=== PATIENT | male | born 1935 | race Caucasian/White ===

== ENCOUNTER 2017-04-14 16:04 | Outpatient (CLI) ==
[2012-09-13 13:50] VITALS: TEMP 98.2
[2014-05-19 20:20] VITALS: BMI 21.6
== END 2017-04-14 16:05 | disposition home or self-care (01) ==
LOC: LAB 16:04
PROVIDERS: ATTEND Emergency Medicine
DX: Z51.81 Encounter for therapeutic drug level monitoring (principal); Z79.01 Long term (current) use of anticoagulants; E78.5 Hyperlipidemia, unspecified; I10 Essential (primary) hypertension
CPT/HCPCS: 36415; 80053; 85025; 85610

== ENCOUNTER 2017-04-22 12:50 | Outpatient (CLI) ==
[2012-09-13 13:50] VITALS: TEMP 98.2
[2014-05-19 20:20] VITALS: BMI 21.6
== END 2017-04-22 12:51 | disposition home or self-care (01) ==
LOC: LAB 12:50
PROVIDERS: ATTEND Emergency Medicine
DX: I48.2 Chronic atrial fibrillation (principal)
CPT/HCPCS: 36415; 85610

== ENCOUNTER 2017-04-30 16:43 | Inpatient (IN) ==
[2017-04-30] MEDS ORDERED: SOLU-MEDROL 125 MG IVP STA (17:07)
[2017-04-30] MEDS ORDERED: DUONEB NEB STA (17:08)
--- NOTE | 2017-04-30 17:41 | DI ---
EXAM: Single view chest COMPARISON: Chest Xray from 05/19/2014 HISTORY: Cough FINDINGS: There is some scarring and atelectasis in the left base which is a bit more apparent with increasing elevation of the left hemidiaphragm compared to prior. There is no lobar infiltrate or fa ilure or large effusion. Cardiac and mediastinal silhouettes show no acute abnormality. Pacemaker is unchanged. No acute soft tissue or osseous abnormalities. There is advanced degenerative change of t he right glenohumeral joint. IMPRESSION: Volume loss left base with no acute abnormality.
--- NOTE | 2017-04-30 18:17 | ED.PDOC ---
General ED Provider: Dr. PRADEEP MARCOS Chief Complaint: Shortness of Air Stated Complaint: shortness of breath Time Seen by Physician: 17:00 (NO RESP DISTRESS) Mode of Arrival: Wheelchair Information Source: Patient Exam Limitations: No limitations Primary Care Provider: BRYAN GARSIA Referred to ED by: Other Nursing and Triage Documentation Reviewed and Agree: Yes Reviewed sepsis parameters & appropriate labs ordered?: Yes (PMD SAW PT IN THE ED ) System Inflammatory Response Syndrome: Not Applicable Sepsis Protocol: For patient's 13 years and over: Temp is 96.8 and below OR 101 and greater Pulse >90 BPM Resp >20/minute Acutely Altered Mental Status Are patient's symptoms suggestive of a new infection, such as: -Pneumonia -Skin, Soft Tissue -Endocarditis -UTI -Bone, Joint Infection -Implantable Device -Acute Abdominal Infection -Wound Infection -Meningitis -Blood Stream Catheter Infection -Unknown System Inflammatory Response Syndrome: Not Applicable Respiratory Complaint Exam - Respiratory Complaint/Exam Onset/Duration: 2 DAYS Symptoms Are: Still present Timing: Constant Initial Severity: Moderate Current Severity: Moderate Location: Chest Character: Reports: Non-productive cough Aggravating: Reports: URI Alleviating: Reports: Bronchodilators, Spontaneous resolution Associated Signs and Symptoms: Reports: Wheezing, URI, Decreased oral intake. Denies: Rapid breathing, Dyspnea, Fever, Chills, Chest pain, Pleuritic chest pain, Hemoptysis, Dizziness, Calf pain, Calf swelling, Edema, Nasal congestion, Hoarseness, Sinus discomfort, Vomiting, Sore throat, Weight loss, Increased thirst, Increased appetite, Increased urination Related History: Reports: Similar episode History of Healthcare-Acquired Pneumonia: No Related Surgical History: Reports: None Pulmonary Embolism Risk Factors: None Pseudomonas Risk Factors: Reports: None Review of Systems - Review Of Systems Constitutional: Reports: Malaise, Weakness Eyes: Reports: No symptoms Ears, Nose, Mouth, Throat: Reports: No symptoms Respiratory: Reports: Cough, Short of air Cardiac: Reports: No symptoms GI: Reports: No symptoms : Reports: No symptoms Musculoskeletal: Reports: No symptoms Skin: Reports: No symptoms Neurological: Reports: No symptoms Endocrine: Reports: No symptoms Hematologic/Lymphatic: Reports: No symptoms All Other Systems: Reviewed and Negative Past Medical History - Past Medical History Previously Healthy: No Endocrine: Reports: Dyslipidemia Cardiovascular: Reports: Hypertension, A-Fib Respiratory: Reports: None Hematological: Reports: None Gastrointestinal: Reports: GERD Genitourinary: Reports: None Neuro/Psych: Reports: None Musculoskeletal: Reports: None Cancer: Reports: None - Surgical History General Surgical History: Reports: None - Family History Family History: Reports: None - Social History Smoking Status: Current some day smoker Hx Substance Use: No Alcohol Screening: None - Immunizations Tetanus Shot up to Date: Yes Physical Exam - Physical Exam Appearance: Ill-appearing Ill-appearing: Mild Pain Distress: Mild Eyes: DAVID, EOMI, Conjunctiva clear ENT: Dry mucosa Respiratory: Breath sounds diminished, Rhonchi, Wheezes Cardiovascular: RRR, Pulses normal, No rub, No murmur GI/: Soft, Nontender, No masses, Bowel sounds normal, No Organomegaly Musculoskeletal: Normal strength, ROM intact, No edema, No calf tenderness Skin: Warm, Dry, Normal color Neurological: Sensation intact, Motor intact, Reflexes intact, Cranial nerves intact, Alert, Oriented Psychiatric: Affect appropriate, Mood appropriate Physician Notification - Case Discussed Physician Notified: PMD Time of Notification: 17:30 Critical Care Note - Critical Care Note Total Time (mins): 0 Course - Course Hematology/Chemistry: 04/30/17 17:10 04/30/17 17:10 Orders, Labs, Meds: Lab Review 04/30/17 04/30/17 04/30/17 16:55 17:10 17:10 WBC 12.81 H RBC 3.58 L Hgb 9.9 L Hct 32.2 L MCV 89.9 MCH 27.7 MCHC 30.7 L RDW Coeff of Salomon 16.3 H Plt Count 224 Immature Gran % (Auto) 0.5 Neut % (Auto) 75.5 Lymph % (Auto) 11.2 [place] % (Auto) 9.4 Eos % (Auto) 3.1 Baso % (Auto) 0.3 Immature Gran # (Auto) 0.1 Neut # 9.7 H Lymph # 1.4 [place] # 1.2 Eos # 0.4 Baso # 0.0 Puncture Site Rb O2 Saturation 95.0 ABG pH 7.385 ABG pCO2 58.3 H ABG pO2 81.0 L ABG HCO3 34.9 H ABG Total CO2 37 H ABG Base Excess 10 H O2 Delivery Device Nc Oxygen Liter Flow 3.00 FiO2 % 32.0 Sodium 142 Potassium 4.4 Chloride 101 Carbon Dioxide 32 H Anion Gap 13.4 BUN 19 H Creatinine 1.00 Estimated GFR (MDRD) 72.00 BUN/Creatinine Ratio 19.00 Glucose 135 H Lactic Acid Calcium 9.0 Total Bilirubin < 0.3 AST 14 L ALT 17 Alkaline Phosphatase 86 Total Creatine Kinase 71 Troponin I 0.0210 B-Natriuretic Peptide Total Protein 7.0 Albumin 3.1 L Globulin 3.9 Albumin/Globulin Ratio 0.79 Procalcitonin Influenza A (Rapid) Influenza B (Rapid) 04/30/17 04/30/17 04/30/17 17:10 17:10 17:10 WBC RBC Hgb Hct MCV MCH MCHC RDW Coeff of Salomon Plt Count Immature Gran % (Auto) Neut % (Auto) Lymph % (Auto) [place] % (Auto) Eos % (Auto) Baso % (Auto) Immature Gran # (Auto) Neut # Lymph # [place] # Eos # Baso # Puncture Site O2 Saturation ABG pH ABG pCO2 ABG pO2 ABG HCO3 ABG Total CO2 ABG Base Excess O2 Delivery Device Oxygen Liter Flow FiO2 % Sodium Potassium Chloride Carbon Dioxide Anion Gap BUN Creatinine Estimated GFR (MDRD) BUN/Creatinine Ratio Glucose Lactic Acid 7.9 Calcium Total Bilirubin AST ALT Alkaline Phosphatase Total Creatine Kinase Troponin I B-Natriuretic Peptide 186 H Total Protein Albumin Globulin Albumin/Globulin Ratio Procalcitonin < 0.05 Influenza A (Rapid) Influenza B (Rapid) 04/30/17 17:10 WBC RBC Hgb Hct MCV MCH MCHC RDW Coeff of Salomon Plt Count Immature Gran % (Auto) Neut % (Auto) Lymph % (Auto) [place] % (Auto) Eos % (Auto) Baso % (Auto) Immature Gran # (Auto) Neut # Lymph # [place] # Eos # Baso # Puncture Site O2 Saturation ABG pH ABG pCO2 ABG pO2 ABG HCO3 ABG Total CO2 ABG Base Excess O2 Delivery Device Oxygen Liter Flow FiO2 % Sodium Potassium Chloride Carbon Dioxide Anion Gap BUN Creatinine Estimated GFR (MDRD) BUN/Creatinine Ratio Glucose Lactic Acid Calcium Total Bilirubin AST ALT Alkaline Phosphatase Total Creatine Kinase Troponin I B-Natriuretic Peptide Total Protein Albumin Globulin Albumin/Globulin Ratio Procalcitonin Influenza A (Rapid) Negative by naat Influenza B (Rapid) Negative by naat Orders Category Date Time Status ABG DRAW REQUEST Stat CARDIO 04/30/17 16:57 Completed EKG-(ED ONLY) Stat CARDIO 04/30/17 17:39 Completed NEBULIZER TREATMENT Stat CARDIO 04/30/17 17:08 Completed ABG Stat LAB 04/30/17 16:55 Completed ABG Stat LAB 04/30/17 16:57 Ordered BLOOD CULTURE Stat LAB 04/30/17 17:10 Received BNP [B-TYPE NATRIURETIC PEPTIDE] Stat LAB 04/30/17 17:10 Completed CBC W/ AUTO DIFF Stat LAB 04/30/17 17:10 Completed COMPREHENSIVE METABOLIC PANEL Stat LAB 04/30/17 17:10 Completed CREATINE KINASE Stat LAB 04/30/17 17:10 Completed FLU A/B MOLECULAR Stat LAB 04/30/17 17:10 Completed LACTIC ACID Stat LAB 04/30/17 17:10 Completed PROCALCITONIN Stat LAB 04/30/17 17:10 Completed TROPONIN I Stat LAB 04/30/17 17:10 Completed Ipratropium/Albuterol Neb [Duoneb] MEDS 04/30/17 17:08 Discontinued 1 vial NEB ONCE STA Methylprednisolone Sod Succ/Pf [Solu-Medrol 125 mg] MEDS 04/30/17 17:07 Discontinued 125 mg IVP ONCE STA CHEST, 1V AP ONLY Stat RADS 04/30/17 16:54 Completed Medications Discontinued Medications Generic Name Dose Route Start Last Admin Trade Name Freq PRN Reason Stop Dose Admin Albuterol/Ipratropium 1 vial 04/30/17 17:08 04/30/17 17:16 Duoneb NEB 04/30/17 17:09 1 vial ONCE STA Administration Methylprednisolone Sodium Succinate 125 mg 04/30/17 17:07 04/30/17 17:29 Solu-Medrol 125 Mg IVP 04/30/17 17:08 125 mg ONCE STA Administration Vital Signs: Temp Pulse Resp BP Pulse Ox 04/30/17 16:44 99.3 F 75 24 124/69 91 L Departure - Departure Time of Disposition: 18:16 Disposition: ADMITTED INPATIENT Discharge Problem: Shortness of breath Instructions: Dyspnea (ED), Shortness of Breath (ED) Condition: Good Pt referred to PMD for follow-up: Yes IPMP verified?: Yes Allergies/Adverse Reactions: Allergies No Known Allergies Allergy (Verified 04/30/17 17:20) Home Medications: Ambulatory Orders Omeprazole [Prilosec] 20 mg PO DAILY 09/13/12 Pravastatin Sodium 10 mg PO DAILY 09/13/12 Spironolactone [Aldactone] 25 mg PO DAILY 09/13/12 Carbidopa/Levodopa [Carbidopa-Levo 25-100 mg Odt] 25 mg PO TID 03/28/14 Cholecalciferol (Vitamin D3) [Vitamin D3] 1,000 unit PO DAILY 03/28/14 Docusate Sodium 100 mg PO BID 03/28/14 Tamsulosin HCl [Flomax] 0.4 mg PO DAILY 03/28/14 Albuterol Sulfate [Proventil Hfa] 6.7 gm IH QID 04/07/17 Furosemide 20 mg PO d 04/07/17 Hydroxyzine HCl 10 mg PO TID 04/07/17 Lisinopril 10 mg PO 1/2 tab daily 04/07/17 Metoprolol Tartrate 50 mg PO 1/2 tab BID 04/07/17 Propafenone HCl 225 mg PO BID 04/07/17 Ropinirole HCl 0.5 mg PO BEDTIME 04/07/17 Warfarin Sodium 2 mg PO SAt. Antonietta KILLIAN. 04/07/17 Warfarin Sodium 4 mg PO Mon, Wed and Wed04/07/17 Naproxen Sodium [Aleve] 220 mg PO PRN PRN 04/30/17 Disposition Discussed With: Patient, Family
[2017-04-30] MEDS ORDERED: ZITHROMAX PO SCH (19:00)
[2017-04-30 19:47] VITALS: BMI 19.8
[2017-04-30] MEDS: SODIUM CHLORIDE 1,000 ML IV SCH (20:18)
[2017-04-30] MEDS: ROCEPHIN 1 GM in SODIUM CHLORIDE 50 ML IV SCH (20:24)
[2017-04-30] MEDS: SOLU-MEDROL 125 MG IVP SCH (20:25)
[2017-04-30] MEDS: ZITHROMAX PO SCH (20:29)
[2017-04-30] MEDS: DUONEB NEB SCH (20:33)
[2017-04-30] MEDS ORDERED: NAPROXEN SODIUM 220 MG PO PRN (21:57)
[2017-04-30] MEDS ORDERED: ZESTRIL PO SCH (22:00)
[2017-04-30] MEDS ORDERED: HYDROXYZINE HCL PO SCH (22:00)
[2017-04-30] MEDS ORDERED: LOPRESSOR PO SCH (22:00)
[2017-04-30] MEDS ORDERED: WARFARIN SODIUM 4 MG PO SCH (22:00)
[2017-04-30] MEDS ORDERED: TYLENOL PO PRN (22:05)
[2017-05-01] MEDS: DUONEB NEB SCH ×4 (04:50→21:48)
[2017-05-01] MEDS ORDERED: PROPAFENONE HCL 225 MG PO SCH (05:00)
[2017-05-01] MEDS: SOLU-MEDROL 125 MG IVP SCH ×3 (05:34→20:59)
[2017-05-01] MEDS ORDERED: NAPROSYN PO PRN (07:21)
[2017-05-01] MEDS: PROAIR HFA IH SCH ×4 (08:46→20:40)
[2017-05-01] MEDS: RYTHMOL PO SCH ×3 (08:46→20:41)
[2017-05-01] MEDS: COLACE PO SCH ×2 (08:47→20:40)
[2017-05-01] MEDS: FLOMAX PO SCH (08:47)
[2017-05-01] MEDS: PRILOSEC PO SCH (08:47)
[2017-05-01] MEDS: ZESTRIL PO SCH (08:47)
[2017-05-01] MEDS: ALDACTONE PO SCH (08:48)
[2017-05-01] MEDS: VITAMIN D PO SCH (08:48)
[2017-05-01] MEDS: SINEMET 25-100 PO SCH ×4 (08:48→20:40)
[2017-05-01] MEDS: LOPRESSOR PO SCH ×2 (08:48→20:40)
[2017-05-01] MEDS: LASIX TAB PO SCH (08:48)
[2017-05-01] MEDS: ATARAX PO SCH ×4 (08:48→20:40)
[2017-05-01] MEDS ORDERED: PRAVASTATIN SODIUM 10 MG PO SCH (09:00)
[2017-05-01] MEDS ORDERED: NON-FORMULARY MEDICATION (Omeprazole [Prilosec] 20 MG) PO SCH (09:00)
[2017-05-01] MEDS ORDERED: CARBIDOPA PO SCH (09:00)
[2017-05-01] MEDS ORDERED: LEVODOPA PO SCH (09:00)
[2017-05-01] MEDS: PRAVACHOL PO SCH (16:45)
[2017-05-01] MEDS: COUMADIN PO SCH (16:46)
[2017-05-01] MEDS: ROCEPHIN 1 GM in SODIUM CHLORIDE 50 ML IV SCH (20:39)
[2017-05-01] MEDS: ZITHROMAX PO SCH (20:43)
[2017-05-01] MEDS: REQUIP PO SCH (20:43)
[2017-05-01] MEDS ORDERED: ROPINIROLE HCL PO SCH (21:00)
[2017-05-01] MEDS: SODIUM CHLORIDE 1,000 ML IV SCH (21:54)
[2017-05-02] MEDS: DUONEB NEB SCH ×4 (04:48→19:56)
[2017-05-02] MEDS: RYTHMOL PO SCH ×3 (05:51→20:29)
[2017-05-02] MEDS: SOLU-MEDROL 125 MG IVP SCH ×3 (05:51→20:27)
[2017-05-02] MEDS: LASIX TAB PO SCH (05:52)
[2017-05-02] MEDS: PRILOSEC PO SCH (05:52)
[2017-05-02] MEDS: PROAIR HFA IH SCH ×4 (09:41→20:27)
[2017-05-02] MEDS: ATARAX PO SCH ×4 (09:42→20:31)
[2017-05-02] MEDS: COLACE PO SCH ×2 (09:42→20:30)
[2017-05-02] MEDS: LOPRESSOR PO SCH ×2 (09:43→20:30)
[2017-05-02] MEDS: ALDACTONE PO SCH (09:43)
[2017-05-02] MEDS: ZESTRIL PO SCH (09:43)
[2017-05-02] MEDS: VITAMIN D PO SCH (09:43)
[2017-05-02] MEDS: SINEMET 25-100 PO SCH ×3 (09:43→20:30)
[2017-05-02] MEDS: FLOMAX PO SCH (09:43)
[2017-05-02] MEDS: PRAVACHOL PO SCH (17:11)
[2017-05-02] MEDS: COUMADIN PO SCH (17:14)
[2017-05-02] MEDS: ROCEPHIN 1 GM in SODIUM CHLORIDE 50 ML IV SCH (20:27)
[2017-05-02] MEDS: REQUIP PO SCH (20:28)
[2017-05-02] MEDS: ATIVAN IVP SCH (20:30)
[2017-05-02] MEDS: ZITHROMAX PO SCH (20:30)
[2017-05-03] MEDS: SODIUM CHLORIDE 1,000 ML IV SCH (02:39)
[2017-05-03] MEDS: DUONEB NEB SCH ×4 (05:06→20:45)
[2017-05-03] MEDS: SOLU-MEDROL 125 MG IVP SCH ×3 (05:30→20:43)
[2017-05-03] MEDS: RYTHMOL PO SCH ×3 (05:30→20:39)
[2017-05-03] MEDS: PRILOSEC PO SCH (05:30)
[2017-05-03] MEDS: LASIX TAB PO SCH (05:30)
[2017-05-03] MEDS: PROAIR HFA IH SCH ×4 (08:37→20:38)
[2017-05-03] MEDS: COLACE PO SCH ×2 (08:38→20:38)
[2017-05-03] MEDS: LOPRESSOR PO SCH ×2 (08:38→20:40)
[2017-05-03] MEDS: ALDACTONE PO SCH (08:38)
[2017-05-03] MEDS: FLOMAX PO SCH (08:38)
[2017-05-03] MEDS: VITAMIN D PO SCH (08:38)
[2017-05-03] MEDS: ZESTRIL PO SCH (08:39)
[2017-05-03] MEDS: SINEMET 25-100 PO SCH ×3 (08:39→20:38)
[2017-05-03] MEDS: ATARAX PO SCH ×4 (08:40→20:38)
--- NOTE | 2017-05-03 11:44 | HP ---
DATE OF SERVICE: 04/30/17 CHIEF COMPLAINT: Shortness of breath. HISTORY OF PRESENT ILLNESS: This is an 81-year-old male with multiple medical problems, CHF, atrial fibrillation, COPD - oxygen dependent, [place] and pneumonia. He was doing fine at home, started having worsening cough and congestion for 3 to 4 days, getting more short of breath. He was already using 2L of nasal cannula which was not helping. He came to the emergency room and was seen by Dr. Ortega in the emergency room. Initial saturation was 91 on 4L, 83% on room air. ABGs showed pH 7.385, pc02 58, p02 81. White count 12.8 with left shift. BNP 186. Chest x-ray was showing normal. At that time, the patient is admitted to the hospital with COPD exacerbation secondary to bronchitis and acute on chronic heart failure. REVIEW OF SYSTEMS: CONSTITUTIONAL: Weakness, tiredness. No fever, no chills. HEENT: Normal. ENDOCRINE: No weight gain; no weight loss. CVS: No chest pain. No PND, no orthopnea. Shortness of breath. No PND, no orthopnea. RESPIRATORY: Cough and congestion. No hemoptysis. GI: No nausea, no vomiting. No abdominal pain. No melena. : No hematuria. No polyuria. MUSCULOSKELETAL: Mild leg edema. No joint swelling. PSYCHIATRIC: Not anxious. No depression. No suicidal thoughts. No homicidal thoughts. SKIN: Intact, no open lesions. PAST MEDICAL HISTORY: CAD 2011 CHF AICD placed 2011 COPD, oxygen dependent Sleep apnea - uses BIPAP GERD Constipation BPH Chronic kidney disease Rheumatoid arthritis Osteoarthritis Depression/anxiety Atrial fibrillation PAST SURGICAL HISTORY: Exploratory surgery for stomach cancer approximately 1993 AICD placement Bilateral cataract surgery PERSONAL HISTORY: Started smoking again. Lives at home with a friend. No alcohol use. No drug use. FAMILY HISTORY: Significant for heart problems. MEDICATIONS: (HOME) Prilosec Pravastatin Aldactone Carbidopa Flomax Docusate Vitamin D3 Hydroxyzine Metoprolol Proventil Propafenone Coumadin Lasix Lisinopril Ropinirole Naproxen ALLERGIES: NKDA PHYSICAL EXAMINATION: V/S: BP 146/66, respiratory rate 22, heart rate 77, temperature 97.9, saturation 100% on 3L. GENERAL: Ill-appearing male, lying in bed. HEENT: Atraumatic, normocephalic. No scleral icterus. Pallor positive. Mucosa dry. NECK: Supple. No JVD, no bruit. No lymphadenopathy. No thyromegaly. HEART: S1, S2 normal. Systolic murmur positive. No cyanosis or clubbing. No ascites. LUNGS: Decreased entry. Basilar crackles. Mild expiratory wheezing. No rales or rhonchi. ABDOMEN: Soft, nontender. Bowel sounds are active. No CVA tenderness. No rigidity or guarding. EXTREMITIES: Trace edema. No cyanosis or clubbing MUSCULOSKELETAL: Normal joints, no swelling. NEUROLOGIC: Normal. SKIN: Intact; no open lesions. LYMPHATIC: No lymph nodes palpable. LABS: White count 12.81, hemoglobin 9.9, hematocrit 72.2, platelet count 224. PT/INR 1.37. ABGs pH 7.385, pc02 58.3, p02 81, p02 81. Bicarb 34.9, sodium 142, potassium 4.4, chloride 101, bicarb 33, BUN 19, creatinine 1.0, glucose 135. BNP 186. ASSESSMENT: 1. ACUTE ON CHRONIC HEART FAILURE 2. COPD EXACERBATION SECONDARY TO BRONCHITIS 3. CHF 4. AICD PLACEMENT 5. COPD 6. SLEEP APNEA 7. OSTEOARTHRITIS 8. DJD SPINE PLAN: 1. Admit the patient to the regular floor 2. CBC today and daily 3. Cardiac enzymes and troponin 4. Continue home medication 5. IV fluids 6. Duonebs 7. Azithromycin 8. Rocephin 9. Solu-Medrol 60 q.8hr 10. Daily I & O's TIME SPENT: MORE THAN 75 minutes MTDD
--- NOTE | 2017-05-03 12:40 | PN ---
DATE OF SERVICE: 05/01/17 SUBJECTIVE: The patient's breathing is somewhat better, was able to get up and walk to the bathroom. Saturation getting better. REVIEW OF SYSTEMS: CONSTITUTIONAL: No fever, no chills. HEENT: Normal. ENDOCRINE: No weight gain, no weight loss. CVS: No angina symptoms. No CHF symptoms. No palpitations. No atypical chest pain for CAD. No shortness of breath. No PND, no orthopnea. RESPIRATORY: No cough, no hemoptysis. GI: No nausea, no vomiting. No abdominal pain. : No hematuria. No polyuria. MUSCULOSKELETAL: No joint swelling. PSYCHIATRIC: Not anxious. No depression. No suicidal thoughts. No homicidal thoughts. SKIN: Intact. No rash. PHYSICAL EXAMINATION: V/S: BP 115/63, respiratory rate 20, heart rate 70, temperature 98.0, saturation 100% on 2L. HEENT: Normocephalic, atraumatic. Mucosa dry. NECK: Supple. No JVD, no carotid bruit. No lymphadenopathy. LUNGS: Decreased basilar crackles. No rales or rhonchi. HEART: S1, S2 normal. No S3. No murmur, gallop or regurgitation. ABDOMEN: Soft, nontender. Bowel sounds active. No rigidity. No rebound or guarding. No CVA tenderness. EXTREMITIES: 1+ edema. No clubbing or cyanosis MUSCULOSKELETAL: No joint swelling. NEUROLOGIC: Normal. No focal deficit. LYMPHATIC: No lymph nodes palpable. SKIN: Intact. LABS: Sodium 140, potassium 4.0, chloride 104, bicarb 31, BUN 24, creatinine 0.83, glucose 178. White count 6.82, hemoglobin 8.7, hematocrit 28.2, platelet count 186. ASSESSMENT: 1. COPD EXACERBATION SECONDARY TO BRONCHITIS 2. ACUTE ON CHRONIC HEART FAILURE 3. CAD 4. CHF 5. BYPASS SURGERY 6. AICD PLACEMENT 7. SLEEP APNEA 8. COPD, OXYGEN DEPENDENT 9. DEPENDENT EDEMA PLAN: 1. Continue Rocephin and Azithromycin 2. Duonebs 3. Solu-Medrol 60 q.8hr 4. Daily I & O's TIME SPENT: More than 35 minutes MTDD
--- NOTE | 2017-05-03 14:46 | CT ---
EXAM: CT of the chest without contrast History: Short of breath Comparison: Chest radiograph 04/30/2017, chest CT 05/24/2014 Technique: Multiplanar CT images through the thorax were obtained without the administration of IV c ontrast Findings: Heart size is upper limits of normal. Coronary calcifications. No pericardial effusion. No pathologically enlarged thoracic lymph nodes. Calcified granulomas again seen within the thorax. Great vessels are unremarkable. Emphysema again noted. No pleural fluid and no pneumothorax. The right lower lobe infiltrate has mostly resolved with minimal residual. There is mucous plugging see n within the right mainstem bronchus tracking into the right lower lobe bronchi. No suspicious lung masses or lung nodules. Within the visualized upper abdomen, status post cholecystectomy. No acute osseous abnormalities. Impression: 1. The right lower lobe infiltrate has mostly resolved with minimal residual. 2. Mucous plugging within the right mainstem bronchus tracking into the right lower lobe bronchi. 3. Emphysema. 4. Coronary artery disease
[2017-05-03] MEDS ORDERED: COUMADIN PO ONE (17:00)
[2017-05-03] MEDS ORDERED: COUMADIN PO SCH (17:00)
[2017-05-03] MEDS: PRAVACHOL PO SCH (17:36)
[2017-05-03] MEDS: ROCEPHIN 1 GM in SODIUM CHLORIDE 50 ML IV SCH (20:36)
[2017-05-03] MEDS: REQUIP PO SCH (20:40)
[2017-05-03] MEDS: ATIVAN IVP SCH (20:43)
[2017-05-04] MEDS: DUONEB NEB SCH ×3 (05:05→14:18)
[2017-05-04] MEDS: RYTHMOL PO SCH ×2 (05:51→12:44)
[2017-05-04] MEDS: PRILOSEC PO SCH (05:52)
[2017-05-04] MEDS: SOLU-MEDROL 125 MG IVP SCH ×2 (05:52→12:53)
[2017-05-04] MEDS: LASIX TAB PO SCH (05:52)
[2017-05-04] MEDS: PROAIR HFA IH SCH ×2 (08:54→12:42)
[2017-05-04] MEDS: FLOMAX PO SCH (08:54)
[2017-05-04] MEDS: ZESTRIL PO SCH (08:55)
[2017-05-04] MEDS: ALDACTONE PO SCH (08:55)
[2017-05-04] MEDS: COLACE PO SCH (08:55)
[2017-05-04] MEDS: LOPRESSOR PO SCH (08:55)
[2017-05-04] MEDS: SINEMET 25-100 PO SCH (08:55)
[2017-05-04] MEDS: VITAMIN D PO SCH (08:55)
[2017-05-04] MEDS: ATARAX PO SCH ×2 (08:56→12:43)
[2017-05-04] MEDS ORDERED: LEXAPRO PO SCH (09:00)
[2017-05-04] MEDS ORDERED: NORCO 5-325 PO STA (09:01)
[2017-05-04 10:04] VITALS: BP 139/74; TEMP 98.2
[2017-05-04] MEDS ORDERED: COUMADIN PO STA (12:10)
--- NOTE | 2017-05-17 07:07 | PN ---
DATE OF SERVICE: 05/02/17 SUBJECTIVE: The patient is admitted with COPD exacerbation, acute on chronic heart failure, slight leg edema. Breathing is better, still having cough and difficult sleeping. No fever, no chills. No PND, no orthopnea. REVIEW OF SYSTEMS: CONSTITUTIONAL: No fever, no chills. HEENT: Normal. ENDOCRINE: No weight gain, no weight loss. CVS: No angina symptoms. No CHF symptoms. No palpitations. No atypical chest pain for CAD. No shortness of breath. No PND, no orthopnea. RESPIRATORY: Cough. No hemoptysis. GI: No nausea, no vomiting. No abdominal pain. : No hematuria. No polyuria. MUSCULOSKELETAL: No joint swelling. PSYCHIATRIC: Not anxious. No depression. No suicidal thoughts. No homicidal thoughts. SKIN: Intact. No rash. PHYSICAL EXAMINATION: V/S: BP 127/67, respiratory rate 14, heart rate 69, temperature 97.6. Saturation 100% 2L. HEENT: Normocephalic, atraumatic. Mucosa dry. Pallor positive. No icterus. NECK: Supple. No JVD, no carotid bruit. No lymphadenopathy. LUNGS: Decreased with fine crackles. Clear to auscultation. No rales or rhonchi. HEART: S1, S2 normal. No S3. No murmur, gallop or regurgitation. ABDOMEN: Soft, nontender. Bowel sounds active. No rigidity. No rebound or guarding. No CVA tenderness. EXTREMITIES: 1+ edema. No clubbing or cyanosis MUSCULOSKELETAL: No joint swelling. NEUROLOGIC: Awake, alert, oriented times three. No focal deficit. LYMPHATIC: No lymph nodes palpable. SKIN: Intact. LABS: White count 18.56, hemoglobin 9.0, hematocrit 27.9, platelet count 218. Sodium 135, potassium 4.5, chloride 102, bicarb 26, BUN 24, creatinine 0.84, glucose 193. ASSESSMENT: 1. COPD EXACERBATION SECONDARY TO BRONCHITIS 2. ACUTE ON CHRONIC HEART FAILURE 3. CHRONIC ANEMIA 4. ATRIAL FIBRILLATION ON GROUP HOME ANTICOAGULATION WITH COUMADIN 5. COPD, OXYGEN DEPENDENT 6. SLEEP APNEA, USES CPAP 7. OSTEOARTHRITIS 8. DJD SPINE PLAN: 1. Continue breathing treatments 2. Rocephin 1 gm daily 3. Lasix 20 mg p.o. daily 4. Solu-Medrol 60 mg q.8hr 5. Requip 6. Coumadin 7. Continue to monitor PT/INR TIME SPENT: More than 35 minutes MTDD
--- NOTE | 2017-05-17 10:05 | PN ---
DATE OF SERVICE: 05/03/17 SUBJECTIVE: The patient says that with the given dose of Ativan last night, he was able to sleep good and using the CPAP helped the patient alot. Ambulated a little going to the bathroom but gets seriously short of breath. REVIEW OF SYSTEMS: CONSTITUTIONAL: No fever, no chills. HEENT: Normal. ENDOCRINE: No weight gain, no weight loss. CVS: No angina symptoms. No CHF symptoms. No palpitations. No atypical chest pain for CAD. Shortness of breath on exertion. No PND, no orthopnea. RESPIRATORY: No cough, no hemoptysis. GI: No nausea, no vomiting. No abdominal pain. : No hematuria. No polyuria. MUSCULOSKELETAL: No joint swelling. PSYCHIATRIC: Not anxious. No depression. No suicidal thoughts. No homicidal thoughts. SKIN: Intact. No rash. PHYSICAL EXAMINATION: V/S: BP 127/66, respiratory rate 24, heart rate 85, temperature 97.7, saturation 85 on 2L, which ranges from 85 to 92 on 2L. HEENT: Normocephalic, atraumatic. Mucosa dry. NECK: Supple. No JVD, no carotid bruit. No lymphadenopathy. LUNGS: Clear to auscultation. No rales or rhonchi. HEART: S1, S2 normal. No S3. No murmur, gallop or regurgitation. ABDOMEN: Soft, nontender. Bowel sounds active. No rigidity. No rebound or guarding. No CVA tenderness. EXTREMITIES: 1+ edema. No clubbing or cyanosis MUSCULOSKELETAL: No joint swelling. NEUROLOGIC: Awake, alert, oriented times three. No focal deficit. LYMPHATIC: No lymph nodes palpable. SKIN: Intact. LABS: Sodium 135, potassium 4.5, chloride 102, bicarb 26, BUN 24, creatinine 0.84. White count 18.56, hemoglobin 9.0, hematocrit 27.9, platelet count 218. ASSESSMENT: 1. COPD EXACERBATION SECONDARY TO BRONCHITIS 2. ACUTE ON CHRONIC HEART FAILURE 3. ANEMIA 4. COPD, OXYGEN DEPENDENT 5. ATRIAL FIBRILLATION ON LONG TERM ANTICOAGULATION PLAN: 1. Continue Rocephin 2. Breathing treatement 3. Coumadin - will continue to monitor PT/INR 4. Will give dose of 5 mg Coumadin today 5. Will get CT chest 6. Anemia profile 7. Stop IV fluids. TIME SPENT: More than 35 minutes MTDD
--- NOTE | 2017-05-19 15:00 | DS ---
DATE OF SERVICE: 05/04/17 FINAL DIAGNOSIS: 1. COPD exacerbation secondary to the bronchitis 2. Acute on chronic heart failure 3. Atrial fibrillation on Coumadin 4. COPD oxygen dependant 5. Coronary artery disease 6. Congestive heart failure 7. CVA 8. AICD placement 9. Sleep apnea on CPAP 10.BPH 11.Rheumatoid arthritis 12.Tonsillectomy 13.History of stomach cancer 14.Continued nicotine use. 15.Depression DISCHARGE INSTRUCTIONS: Discharge the patient home. Continue home medication and Nebulizer.Continue new medications. MEDICATIONS AT DISCHARGE: Propafenone Albuterol PRN Carbidopa/Levopa Vitamin D 3 Docusate Lasix Hydrocodone Hydroxyzin Lisinopril Metoprolol Prilosec Pravastatin Prednisone Requip Aldactone Flomax Coumadin 2mg and 4mg NEW PRESCRIPTIONS: Lexapro 10mg Po daily [employer] 5mg PO twice a day Keflex 500mg twice a day Prednisone 10mg twice a day DIET INSTRUCTIONS: Heart healthy ACTIVITY: Resume as tolerated SMOKING: Current some day smoker. DISEASE SPECIFIC EDUCATION: correction anticoagulation Risk of intracranial bleed and GI bleed been discussed Risk of Pneumonia and need for pneumonia vaccination been discussed and verbalized understanding. COPD HOSPITAL COURSE: Natan Ackerman 81 [facility] male, [facility] care with me, came to the emergency room with worsening of the cough, congestion and shortness of breath. As per the patient's daughter he started smoking again. Evaluated in the ER. WBC was 12,000 with the left shift, hgb 9.9, ABG showed the pH 7.385, pCO2 58.3 and pO2 81. Chest x-ray was negative, BNP was elevated 186 with mild leg edema with 1+ to the ankles. Admitted to the hospital and started on the IV antibiotics, breathing treatments and steroids. The patient's Coumadin was continued in the hospital. PT/INR being monitored. Started on the DUO NEBS. The patient says that they were helping better than the Albuterol. Rocephin 1 gram was given, Solu-Medrol 125mg and Azithromycin 500mg. With the given treatment the patient was up and about. Solu-Medrol 60mg Q 8 hours was given. The patient was complaining some depression and so Lexapro 10mg was started, did not have any problems. Hydrocodone 5mg was started and did not have any problems. Sugars were slightly high Most of them were below 200 and covered with the coverage. Assumed to be more from the steroids. CT of the chest was done which showed the right lower lobe infiltrate mostly resolved with minimal residual mucosa plugging within the right main bronchus, emphysema and coronary artery disease. As the patient was clinically improved and less short of breath and more active the patient being discharged home. TIME SPENT: MORE THAN 65 MINUTES MTDD
== END 2017-05-04 14:58 | disposition home or self-care (01) | DRG 190 ==
LOC: ED 16:43 → MEDSURG A 18:14
PROVIDERS: ADMIT Emergency Medicine; ATTEND Emergency Medicine
DX: J44.1 Chronic obstructive pulmonary disease with (acute) exacerbation (principal); I63.9 Cerebral infarction, unspecified; R53.1 Weakness; J44.0 Chronic obstructive pulmonary disease with (acute) lower respiratory infection; R05 Cough; E78.5 Hyperlipidemia, unspecified; I10 Essential (primary) hypertension; I48.91 Unspecified atrial fibrillation; K21.9 Gastro-esophageal reflux disease without esophagitis; Z72.0 Tobacco use; J20.9 Acute bronchitis, unspecified; I50.9 Heart failure, unspecified; Z79.01 Long term (current) use of anticoagulants; Z99.81 Dependence on supplemental oxygen; I25.10 Atherosclerotic heart disease of native coronary artery without angina pectoris; G47.30 Sleep apnea, unspecified; N40.0 Benign prostatic hyperplasia without lower urinary tract symptoms; M06.9 Rheumatoid arthritis, unspecified; Z85.028 Personal history of other malignant neoplasm of stomach; F32.9 Major depressive disorder, single episode, unspecified
CPT/HCPCS: 36415; 80053; 82550; 82607; 82728; 82746; 82803; 83540; 83550; 83605; 83880; 84145; 84466; 84484; 85025; 85045; 85610; 87040; 87502; 93005; 93010; 94640; 96374; 96375; 99284

== ENCOUNTER 2017-05-14 15:21 | Inpatient (IN) ==
[2017-05-14] MEDS ORDERED: TYLENOL PO PRN (15:40)
[2017-05-14] MEDS ORDERED: WARFARIN SODIUM 4 MG PO SCH (15:45)
[2017-05-14] MEDS ORDERED: LOPRESSOR PO SCH (16:00)
[2017-05-14] MEDS ORDERED: COUMADIN PO SCH ×2 (16:06→17:00)
[2017-05-14 16:17] VITALS: BMI 18.6
[2017-05-14] MEDS: DUONEB NEB SCH ×2 (16:56→23:43)
--- NOTE | 2017-05-14 17:02 | DI ---
EXAM: Chest two view, frontal and lateral views. HISTORY: Shortness of breath. COMPARISON: 05/03/2017. FINDINGS: Left-sided automatic implantable cardiac defibrillator noted. The heart size is normal. There is no pulmonary vascular congestion. Suspect mild right posterobasal lower lobe consolidation. Otherwise, the lungs are clear save for stable left basilar scarring. No pleural effusion or pneum othorax is seen. No acute osseous abnormality identified. Clips seen in the upper abdomen. Since prior study, there has been no significant interval change. IMPRESSION: Right lower lobe atelectasis or pneumonia.
[2017-05-14] MEDS: SOLU-MEDROL 125 MG IVP SCH ×2 (17:11→21:13)
[2017-05-14] MEDS: SODIUM CHLORIDE 1,000 ML IV SCH (17:11)
[2017-05-14] MEDS: ROCEPHIN 1 GM in SODIUM CHLORIDE 50 ML IV SCH (17:11)
[2017-05-14] MEDS: ATARAX PO SCH (17:15)
[2017-05-14] MEDS: LOPRESSOR PO SCH (17:19)
[2017-05-14] MEDS ORDERED: ATARAX PO SCH (21:00)
[2017-05-14] MEDS ORDERED: ROPINIROLE HCL PO SCH (21:00)
[2017-05-14] MEDS ORDERED: PROPAFENONE HCL 225 MG PO SCH (21:00)
[2017-05-14] MEDS ORDERED: LEVODOPA PO SCH (21:00)
[2017-05-14] MEDS ORDERED: NON-FORMULARY MEDICATION (Hydroxyzine Hcl [Hydroxyzine Hcl] 10 MG) PO SCH (21:00)
[2017-05-14] MEDS ORDERED: CARBIDOPA PO SCH (21:00)
[2017-05-14] MEDS: SINEMET 25-100 PO SCH (21:08)
[2017-05-14] MEDS: RYTHMOL PO SCH (21:09)
[2017-05-14] MEDS: COLACE PO SCH (21:09)
[2017-05-14] MEDS: REQUIP PO SCH (21:09)
[2017-05-15] MEDS: DUONEB NEB SCH ×4 (05:09→23:13)
[2017-05-15] MEDS: PRILOSEC PO SCH (05:33)
[2017-05-15] MEDS: LASIX TAB PO SCH (05:33)
[2017-05-15] MEDS: RYTHMOL PO SCH ×3 (05:34→21:13)
[2017-05-15] MEDS: ROCEPHIN 1 GM in SODIUM CHLORIDE 50 ML IV SCH (08:41)
[2017-05-15] MEDS: ALDACTONE PO SCH (08:43)
[2017-05-15] MEDS: ATARAX PO SCH ×4 (08:45→21:15)
[2017-05-15] MEDS: COLACE PO SCH ×2 (08:46→21:15)
[2017-05-15] MEDS: FLOMAX PO SCH (08:46)
[2017-05-15] MEDS: SOLU-MEDROL 125 MG IVP SCH ×2 (08:46→21:15)
[2017-05-15] MEDS: PRAVACHOL PO SCH (08:47)
[2017-05-15] MEDS: LEXAPRO PO SCH (08:47)
[2017-05-15] MEDS: LOPRESSOR PO SCH ×2 (08:47→16:48)
[2017-05-15] MEDS: ZESTRIL PO SCH (08:49)
[2017-05-15] MEDS: SINEMET 25-100 PO SCH ×3 (08:49→21:14)
[2017-05-15] MEDS: VITAMIN D PO SCH (08:49)
[2017-05-15] MEDS ORDERED: NON-FORMULARY MEDICATION (Omeprazole [Prilosec] 20 MG) PO SCH (09:00)
[2017-05-15] MEDS ORDERED: PRAVASTATIN SODIUM 10 MG PO SCH (09:00)
[2017-05-15] MEDS: COUMADIN PO SCH (16:47)
[2017-05-15] MEDS: REQUIP PO SCH (21:13)
[2017-05-15] MEDS: SODIUM CHLORIDE 1,000 ML IV SCH (21:18)
[2017-05-16] MEDS: NORCO 5-325 PO PRN ×2 (00:05→13:24)
[2017-05-16] MEDS: DUONEB NEB SCH ×4 (05:03→23:00)
[2017-05-16] MEDS: LASIX TAB PO SCH (05:43)
[2017-05-16] MEDS: RYTHMOL PO SCH ×3 (05:43→20:00)
[2017-05-16] MEDS: PRILOSEC PO SCH (05:43)
[2017-05-16] MEDS ORDERED: COUMADIN PO STA (07:58)
[2017-05-16] MEDS: NEO-POLYCIN OPTH OINT OP SCH ×5 (08:50→20:00)
[2017-05-16] MEDS: COLACE PO SCH ×2 (08:51→20:01)
[2017-05-16] MEDS: ATARAX PO SCH ×4 (08:51→20:00)
[2017-05-16] MEDS: FLOMAX PO SCH (08:52)
[2017-05-16] MEDS: ALDACTONE PO SCH (08:52)
[2017-05-16] MEDS: VITAMIN D PO SCH (08:52)
[2017-05-16] MEDS: LEXAPRO PO SCH (08:52)
[2017-05-16] MEDS: LOPRESSOR PO SCH ×2 (08:52→17:15)
[2017-05-16] MEDS: SINEMET 25-100 PO SCH ×3 (08:53→20:01)
[2017-05-16] MEDS: SOLU-MEDROL 125 MG IVP SCH ×2 (08:53→19:59)
[2017-05-16] MEDS: ZESTRIL PO SCH (08:53)
[2017-05-16] MEDS: ROCEPHIN 1 GM in SODIUM CHLORIDE 50 ML IV SCH (08:53)
[2017-05-16] MEDS: PRAVACHOL PO SCH (09:35)
[2017-05-16] MEDS: COUMADIN PO SCH (17:15)
[2017-05-16] MEDS: SODIUM CHLORIDE 1,000 ML IV SCH (19:55)
[2017-05-16] MEDS: REQUIP PO SCH (20:00)
[2017-05-17] MEDS: NEO-POLYCIN OPTH OINT OP SCH ×3 (04:15→08:39)
[2017-05-17] MEDS: DUONEB NEB SCH ×2 (05:13→11:12)
[2017-05-17] MEDS: NORCO 5-325 PO PRN (05:18)
[2017-05-17 05:52] VITALS: BP 136/80; TEMP 98.1
[2017-05-17] MEDS: LASIX TAB PO SCH (05:55)
[2017-05-17] MEDS: RYTHMOL PO SCH (05:55)
[2017-05-17] MEDS: PRILOSEC PO SCH (05:55)
[2017-05-17] MEDS: ALDACTONE PO SCH (08:36)
[2017-05-17] MEDS: ATARAX PO SCH (08:37)
[2017-05-17] MEDS: LEXAPRO PO SCH (08:38)
[2017-05-17] MEDS: COLACE PO SCH (08:38)
[2017-05-17] MEDS: FLOMAX PO SCH (08:38)
[2017-05-17] MEDS: LOPRESSOR PO SCH (08:39)
[2017-05-17] MEDS: PRAVACHOL PO SCH (08:40)
[2017-05-17] MEDS: VITAMIN D PO SCH (08:41)
[2017-05-17] MEDS: ZESTRIL PO SCH (08:41)
[2017-05-17] MEDS: ROCEPHIN 1 GM in SODIUM CHLORIDE 50 ML IV SCH (08:41)
[2017-05-17] MEDS: SINEMET 25-100 PO SCH (08:41)
[2017-05-17] MEDS: SOLU-MEDROL 125 MG IVP SCH (10:13)
--- NOTE | 2017-05-17 11:45 | PN ---
DATE OF SERVICE: 05/15/17 SUBJECTIVE: Cough and congestion is some better but still getting shortness of breath with minimal exertion. Admitted with COPD exacerbation. The patient uses the oxygen at home. REVIEW OF SYSTEMS: CONSTITUTIONAL: No fever, no chills. HEENT: Normal. ENDOCRINE: No weight gain, no weight loss. CVS: No angina symptoms. No CHF symptoms. No palpitations. No atypical chest pain for CAD. Still shortness of breath with minimal exertion. No PND, no orthopnea. RESPIRATORY: No cough, no hemoptysis. GI: No nausea, no vomiting. No abdominal pain. : No hematuria. No polyuria. MUSCULOSKELETAL: No joint swelling. PSYCHIATRIC: Not anxious. No depression. No suicidal thoughts. No homicidal thoughts. SKIN: Intact. No rash. PHYSICAL EXAMINATION: V/S: Blood pressure 113/61, respiratory rate 18, heart rate 75, temperature 98.0 and saturation 92 on 2 liters. HEENT: Normocephalic, atraumatic. Mucosa dry. Pallor positive. No icterus. NECK: Supple. No JVD, no carotid bruit. No lymphadenopathy. LUNGS: Basilar crackles. No Wheezing. Clear to auscultation. No rales or rhonchi. HEART: S1, S2 normal. No S3. No murmur, gallop or regurgitation. ABDOMEN: Soft, nontender. Bowel sounds active. No rigidity. No rebound or guarding. No CVA tenderness. EXTREMITIES: No pedal edema. No clubbing or cyanosis MUSCULOSKELETAL: No joint swelling. NEUROLOGIC: Awake, alert, oriented times three. No focal deficit. LYMPHATIC: No lymph nodes palpable. SKIN: Intact. LABS: WBC 7.10, hgb 9.7, hct 30.8, plt count 159, sodium 136, potassium 5.2, chloride 96, bicarb 32, BUN 26, creatinine 0.92 and glucose 184. ASSESSMENT: 1. COPD exacerbation secondary to the bronchitis 2. History of CHF 3. COPD oxygen dependent 4. Atrial fibrillation on [employer] anticoagulation 5. Parkinson's disease 6. Permanent pacemaker 7. Sleep apnea on CPAP PLAN: 1. Continue the Rocephin, Solu-Medrol and DUO NEBS 2. Continue Coumadin will adjust the dose as per PT/INR TIME SPENT: More than 35 minutes MTDD
--- NOTE | 2017-05-17 12:58 | PN ---
DATE OF SERVICE: 05/16/17 SUBJECTIVE: Coughing and congestion is better but still gets short of breath with minimal exertion. Going to the bathroom and coming back makes him short of breath. Left eye been irritated and it is red now. He was not able to sleep because he said his restless legs started yesterday night and he was not able to sleep. REVIEW OF SYSTEMS: CONSTITUTIONAL: No fever, no chills. HEENT: Normal. ENDOCRINE: No weight gain, no weight loss. CVS: No angina symptoms. No CHF symptoms. No palpitations. No atypical chest pain for CAD. No shortness of breath. No PND, no orthopnea. RESPIRATORY: No cough, no hemoptysis. GI: No nausea, no vomiting. No abdominal pain. : No hematuria. No polyuria. MUSCULOSKELETAL: No joint swelling. PSYCHIATRIC: Not anxious. No depression. No suicidal thoughts. No homicidal thoughts. SKIN: Intact. No rash. PHYSICAL EXAMINATION: V/S: Blood pressure 112/66, respiratory rate 15, heart rate 66 and temperature 97.6 with saturation 92. HEENT: Normocephalic, atraumatic. Mucosa dry. Pallor positive. no icterus. NECK: Supple. No JVD, no carotid bruit. No lymphadenopathy. LUNGS: Decreased and clear to auscultation. No rales or rhonchi. HEART: S1, S2 normal. No S3. No murmur, gallop or regurgitation. ABDOMEN: Soft, nontender. Bowel sounds active. No rigidity. No rebound or guarding. No CVA tenderness. EXTREMITIES: No pedal edema. No clubbing or cyanosis MUSCULOSKELETAL: No joint swelling. NEUROLOGIC: Awake, alert, oriented times three. No focal deficit. LYMPHATIC: No lymph nodes palpable. SKIN: Intact. LABS: WBC 16,000, hgb 8.9, hct 27.8, plt count 171,sodium 132, potassium 5.0, chloride 96, bicarb 30, BUN 39 and creatinine 1.0 and glucose 225. ASSESSMENT: 1. COPD Exacerbation secondary to the bronchitis 2. History of COPD oxygen dependant 3. CHF 4. Coronary artery disease 5. Status post permanent pacemaker and ACD 6. Atrial fibrillation on snf anticoagulation 7. Parkinson's disease 8. Restless leg syndrome 9. 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 Left eye conjunctivitis PLAN: 1. Continue the Solu-Medrol 80mg Q 12 hours 2. Rocephin 1 gram daily 3. PT/INR 4. Continue the same dose of Coumadin TIME SPENT: More than 35 minutes MTDD
--- NOTE | 2017-05-25 13:47 | DS ---
DATE OF SERVICE: 05/17/17 FINAL DIAGNOSIS: 1. COPD exacerbation secondary to the upper respiratory infection and bronchitis 2. Chronic hypoxemic respiratory failure on oxygen 3. Coronary artery disease 4. Congestive heart failure 5. AICD 6. Atrial fibrillation on anticoagulation 7. Restless leg syndrome 8. Sleep apnea on CPAP 9. Anemia 10.Cachexia 11.CAD in 2012 12.History of appendectomy 13.BPH DISCHARGE INSTRUCTIONS: Discharge the patient home. Continue the rest of the home medication. MEDICATIONS AT DISCHARGE: Prilosec Pravastatin Sodium Aldactone Carbidopa-Levo Flomax Docusate sodium Vitamin D3 Hydroxyzine Metoprolol tartrate Proventil Propafenone Warfarin Warfarin Furosemide Lisinopril Ropinirole Lexapro [place] Hydroxyzine NEW PRESCRIPTIONS: Keflex 500mg twice a day for 5 days Prednisone 10mg twice a day 10 days DIET INSTRUCTIONS: Cardiac and healthy ACTIVITY: As much as tolerated SMOKING: Current everyday smoker DISEASE SPECIFIC EDUCATION: COPD Pneumonia and need for the pneumonia vaccination been discussed and verbalized understanding. HOSPITAL COURSE: Natan Ackerman who is a 81 year old gentleman with multiple medical problems came to the office with the worsening of the cough and congestion. As per the daughter the patient started smoking again like 3-4 cigarettes per day. No fever or chills. Admitted directly from the office to the hospital. Hypoxemic on the 2 liters nasal cannula. Started on the Rocephin, steroids and breathing treatments. BNP was within normal limits. CT chest did not show any acute findings. ABG showed the pH 7.391, pCo2 61, pO2 72. With the given treatment and antibiotics the patient was feeling better and did not have any complications. Up and about walking, less short of breath. Did not like that the hospital was cold and that kind of stuff otherwise the patient PT/INR was subtherapeutic so extra dose of Coumadin was given. FPC anticoagulation and intracranial bleed and GI bleed discussed and verbalized understanding. TIME SPENT: MORE THAN 65 MINUTES MTDD
== END 2017-05-17 11:55 | disposition home or self-care (01) | DRG 191 ==
LOC: MEDSURG A 15:21
PROVIDERS: ADMIT Emergency Medicine; ATTEND Emergency Medicine
DX: J44.1 Chronic obstructive pulmonary disease with (acute) exacerbation (principal); J96.11 Chronic respiratory failure with hypoxia; R64 Cachexia; J20.9 Acute bronchitis, unspecified; J44.0 Chronic obstructive pulmonary disease with (acute) lower respiratory infection; Z99.81 Dependence on supplemental oxygen; Z72.0 Tobacco use; I50.9 Heart failure, unspecified; Z95.810 Presence of automatic (implantable) cardiac defibrillator; I48.91 Unspecified atrial fibrillation; Z79.01 Long term (current) use of anticoagulants; G25.81 Restless legs syndrome; G47.30 Sleep apnea, unspecified; D64.9 Anemia, unspecified; I25.10 Atherosclerotic heart disease of native coronary artery without angina pectoris; N40.0 Benign prostatic hyperplasia without lower urinary tract symptoms
CPT/HCPCS: 36415; 80053; 82550; 82803; 83880; 84484; 85025; 85610; 87081; 93005; 93010; 94640

== ENCOUNTER 2017-05-24 19:00 | Inpatient (IN) ==
[2017-05-24] MEDS ORDERED: DUONEB NEB STA (19:16)
[2017-05-24] MEDS ORDERED: SOLU-MEDROL 125 MG IVP STA ×2 (19:16→20:40)
--- NOTE | 2017-05-24 19:20 | ED.PDOC ---
General ED Provider: Dr. RIGOBERTO OBANDO Chief Complaint: Shortness of Air Stated Complaint: Patient states that he began to feel short of air after lunch. He states that he spoke with his PCP and was told to take an Albuterol treatment, and called back when it didn't improve and was instructed to take a second one. He states that he has had a productive cough of "brown stuff and blood" Time Seen by Physician: 19:15 Mode of Arrival: Walk-In Information Source: Patient Exam Limitations: No limitations [facility] and T[facility] Documentation Reviewed and Agree: Yes Reviewed sepsis parameters & appropriate labs ordered?: Yes System Inflammatory Response Syndrome: Resp >20/Minute Sepsis Protocol: For patient's 13 years and over: Temp is 96.8 and below OR 101 and greater Pulse >90 BPM Resp >20/minute Acutely Altered Mental Status Are patient's symptoms suggestive of a new infection, such as: -Pneumonia -Skin, Soft Tissue -Endocarditis -UTI -Bone, Joint Infection -Implantable Device -Acute Abdominal Infection -Wound Infection -Meningitis -Blood Stream Catheter Infection -Unknown Respiratory Complaint Exam - Shortness of Air Complaint/Exam Onset/Duration: 1 day Symptoms Are: Still present Timing: Constant Initial Severity: Moderate Current Severity: Severe Character: Reports: Dyspnea at rest Aggravating: Reports: URI, Weather Alleviating: Reports: Bronchodilators, Oxygen Associated Signs and Symptoms: Reports: Cough, Wheezing, Rapid breathing, Labored breathing Related History: Reports: Similar episode History of Healthcare-Acquired Pneumonia: No Pulmonary Embolism Risk Factors: Reports: Smoking. Denies: OCs/Estrogen, , Malignancy, Recent travel, Bedrest, Recent surgery, Recent trauma, Previous PE Cardiac Risk Factors: Reports: Prior VT, Smoking Pseudomonas Risk Factors: Reports: Chronic Lung Disease Tuberculosis Risk Factors: Reports: Corticosteriod use Home Oxygen Use: No Recent Stress Test: No Recent Echo/LV Function: No Respiratory Distress: Moderate Stridor Present: No Tracheal Deviation: No Subcutaneous Emphysema: No Accessory Muscle Use: Yes Retractions: Supraclavicular Diminished Breath Sounds: Yes Prolonged Expiratory Phase: No Unable to Speak Full Sentences: Yes Fatigue: No Leg Swelling: No Perico's Sign Present: No Grunting Respirations: No Kussmaul Respirations: No Differential Diagnoses: COPD Exacerbation, Pneumonia, Pulmonary Embolism Quality Indicator For Non-Traumatic Chest Pain/Syncope: EKG Performed Quality Indicators For Pneumonia/CAP: Blood Cultures-SCU admit, Antibiotics in 6hr-admit, SpO2 assessed, Empiric Antibiotic Rx, Vital signs, Mental status assessed Related Surgical History: Reports: Pacemaker Review of Systems - Review Of Systems Constitutional: Reports: No symptoms Eyes: Reports: No symptoms Ears, Nose, Mouth, Throat: Reports: No symptoms Respiratory: Reports: Cough, Short of air, Wheezing Cardiac: Reports: No symptoms GI: Reports: No symptoms : Reports: No symptoms Musculoskeletal: Reports: No symptoms Skin: Reports: No symptoms Neurological: Reports: No symptoms Endocrine: Reports: No symptoms Hematologic/Lymphatic: Reports: No symptoms All Other Systems: Reviewed and Negative Past Medical History - Past Medical History Previously Healthy: No Endocrine: Reports: Dyslipidemia Cardiovascular: Reports: Hypertension, CHF, A-Fib Respiratory: Reports: COPD Hematological: Reports: None Gastrointestinal: Reports: GERD Genitourinary: Reports: None Neuro/Psych: Reports: None Musculoskeletal: Reports: None Cancer: Reports: None Other Pertinent Past Medical History: Sleep Apnea - Surgical History General Surgical History: Reports: Appendectomy, Pacemaker (ICD), Other ( EXP LAP) - Family History Family History: Reports: Unknown - Social History Smoking Status: Current some day smoker Hx Substance Use: No Alcohol Screening: None - Immunizations Tetanus Shot up to Date: No Physical Exam - Physical Exam Appearance: Ill-appearing, Thin Ill-appearing: Moderate Eyes: DAVID, EOMI, Conjunctiva clear Neck: Supple Respiratory: Breath sounds diminished, Rhonchi, Wheezes Cardiovascular: RRR, Pulses normal, No rub, No murmur GI/: Soft, Nontender, No masses, Bowel sounds normal, No Organomegaly Musculoskeletal: Normal strength, ROM intact, No edema, No calf tenderness Skin: Warm, Dry, Normal color Neurological: Alert, Oriented Psychiatric: Anxious Interpretation - Radiology Interpretation Radiology Interpretation By: Radiologist Radiology Results: No acute changes Exam Interpreted: Portable CXR (Pacemaker ICD in place on the left upper chest ) - EKG Interpretation Time of EKG #1: 19:32 Rhythm: Other (Electronic Ventricular Paced.) Critical Care Note - Critical Care Note Total Time (mins): 35 Course - Course Hematology/Chemistry: 05/24/17 19:30 05/24/17 19:30 Orders, Labs, Meds: Lab Review 05/24/17 05/24/1718 19:15 19:16 19:30 WBC 8.10 RBC 3.33 L Hgb 9.3 L Hct 29.6 L MCV 88.9 MCH 27.9 MCHC 31.4 L RDW Coeff of Salomon 16.5 H Plt Count 194 Immature Gran % (Auto) 0.5 Neut % (Auto) 60.3 Lymph % (Auto) 17.7 [place] % (Auto) 15.6 H Eos % (Auto) 5.7 Baso % (Auto) 0.2 Immature Gran # (Auto) 0.0 Neut # 4.9 Lymph # 1.4 [place] # 1.3 Eos # 0.5 Baso # 0.0 Puncture Site Rr O2 Saturation 95.0 ABG pH 7.512 H* ABG pCO2 42.0 ABG pO2 69.0 L ABG HCO3 33.7 H ABG Total CO2 35 H ABG Base Excess 11 H Bryson Test + O2 Delivery Device Nc Oxygen Liter Flow 2.00 FiO2 % 28.0 Sodium Potassium Chloride Carbon Dioxide Anion Gap BUN Creatinine Estimated GFR (MDRD) BUN/Creatinine Ratio Glucose Lactic Acid Calcium Total Bilirubin AST ALT Alkaline Phosphatase Total Protein Albumin Globulin Albumin/Globulin Ratio Procalcitonin Influenza A (Rapid) Negative by naat Influenza B (Rapid) Negative by naat 05/24/17 05/24/17 05/24/17 19:30 19:30 19:30 WBC RBC Hgb Hct MCV MCH MCHC RDW Coeff of Salomon Plt Count Immature Gran % (Auto) Neut % (Auto) Lymph % (Auto) [place] % (Auto) Eos % (Auto) Baso % (Auto) Immature Gran # (Auto) Neut # Lymph # [place] # Eos # Baso # Puncture Site O2 Saturation ABG pH ABG pCO2 ABG pO2 ABG HCO3 ABG Total CO2 ABG Base Excess Bryson Test O2 Delivery Device Oxygen Liter Flow FiO2 % Sodium 140 Potassium 4.6 Chloride 99 Carbon Dioxide 33 H Anion Gap 12.6 BUN 28 H Creatinine 1.16 H Estimated GFR (MDRD) 60.00 BUN/Creatinine Ratio 24.13 Glucose 155 H Lactic Acid 9.2 Calcium 9.0 Total Bilirubin 0.3 AST 11 L ALT 6 L Alkaline Phosphatase 68 Total Protein 6.3 Albumin 2.9 L Globulin 3.4 Albumin/Globulin Ratio 0.85 Procalcitonin < 0.05 Influenza A (Rapid) Influenza B (Rapid) Orders Category Date Time Status ADMIT PATIENT INPATIENT .TO SCU (MONITORED BED) ADMISSION 05/24/17 20:36 Completed ABG DRAW REQUEST Stat CARDIO 05/24/17 19:16 Completed EKG-(ED ONLY) Stat CARDIO 05/24/17 19:15 Completed NEBULIZER TREATMENT Stat CARDIO 05/24/17 19:16 Completed TELEMETRY MONITORING TELE CARE 05/24/17 20:37 Active ED IV/MEDIPORT/POWERPORT .ONCE EMERGENCY 05/24/17 19:16 Active ABG Stat LAB 05/24/17 19:16 Completed BLOOD CULTURE (ED ONLY) Stat LAB 05/24/17 19:30 Received CBC W/ AUTO DIFF Stat LAB 05/24/17 19:30 Completed COMPREHENSIVE METABOLIC PANEL Stat LAB 05/24/17 19:30 Completed FLU A/B MOLECULAR Stat LAB 05/24/17 19:15 Completed LACTIC ACID Stat LAB 05/24/17 19:30 Completed PROCALCITONIN Stat LAB 05/24/17 19:30 Completed 0.9 % Sodium Chloride [Saline Flush] MEDS 05/24/17 19:16 Ordered 1 syr IVF PRN PRN Aspirin [Aspirin EC] MEDS 05/25/17 09:00 Ordered 81 mg PO DAILY Carbidopa/Levodopa [Carbidopa-Levo 25-100 mg Odt] MEDS 05/24/17 21:00 Ordered 25 mg PO TID Ceftriaxone Sodium [Rocephin] 1 gm MEDS 05/24/17 20:39 Discontinued 0.9 % Sodium Chloride [Sodium Chloride] 50 ml IV ONCE Cholecalciferol (Vitamin D3) [Vitamin D] MEDS 05/25/17 09:00 Ordered 1,000 unit PO DAILY Docusate Sodium [Colace] MEDS 05/24/17 21:00 Ordered 100 mg PO BID Enoxaparin Sodium [Lovenox] MEDS 05/24/17 20:39 Discontinued 40 mg SUBCUT ONCE STA Escitalopram Oxalate [Lexapro] MEDS 05/25/17 09:00 Ordered 10 mg PO DAILY Finasteride [Proscar] MEDS 05/25/17 09:00 Ordered 5 mg PO DAILY Furosemide [Lasix Tab] MEDS 05/24/17 21:00 Ordered 20 mg PO d Hydrocodone Bit/Acetaminophen [[place] 5-325] MEDS 05/24/17 20:36 Ordered 1 tab PO BID PRN Hydroxyzine HCl [Hydroxyzine HCl] MEDS 05/24/17 21:00 Ordered 10 mg PO TID Ipratropium/Albuterol Neb [Duoneb] MEDS 05/24/17 19:16 Discontinued 1 vial NEB ONCE STA Lisinopril [Zestril] MEDS 05/24/17 21:00 Ordered 10 mg PO 1/2 tab daily Methylprednisolone Sod Succ/Pf [Solu-Medrol 125 mg] MEDS 05/24/17 19:16 Discontinued 125 mg IVP ONCE STA Methylprednisolone Sod Succ/Pf [Solu-Medrol 125 mg] MEDS 05/24/17 20:40 Discontinued 125 mg IVP ONCE STA Metoprolol Tartrate [Lopressor] MEDS 05/24/17 21:00 Ordered 50 mg PO 1/2 tab BID Omeprazole [Prilosec] MEDS 05/25/17 09:00 Ordered 20 mg PO DAILY Pravastatin Sodium [Pravastatin Sodium] MEDS 05/25/17 09:00 Ordered 20 mg PO DAILY Propafenone HCl [Propafenone HCl] MEDS 05/24/17 21:00 Ordered 225 mg PO Q8HR Ropinirole HCl [Ropinirole HCl] MEDS 05/24/17 21:00 Ordered 0.75 mg PO BEDTIME Spironolactone [Aldactone] MEDS 05/25/17 09:00 Ordered 25 mg PO DAILY Tamsulosin HCl [Flomax] MEDS 05/25/17 09:00 Ordered 0.4 mg PO DAILY Theophylline Anhydrous [Theophylline] MEDS 05/25/17 09:00 Ordered 400 mg PO DAILY CHEST, 1V AP ONLY Stat RADS 05/24/17 19:16 Completed Medications Generic Name Dose Route Start Last Admin Trade Name Freq PRN Reason Stop Dose Admin Acetaminophen/Hydrocodone Bitart 1 tab 05/24/17 20:36 05/24/17 22:52 [place] 5-325 PO 1 tab BID PRN Administration Severe Pain Albuterol/Ipratropium 1 vial 05/25/17 00:00 Duoneb NEB RTQ6H DARLIN Aspirin 81 mg 05/25/17 09:00 Aspirin Ec PO DAILY DARLIN Cholecalciferol 1,000 unit 05/25/17 09:00 Vitamin D PO DAILY [facility] Docusate Sodium 100 mg 05/24/17 21:00 05/24/17 22:52 Colace PO 100 mg BID DARLIN Administration Escitalopram Oxalate 10 mg 05/25/17 09:00 Lexapro PO DAILY [facility] Finasteride 5 mg 05/25/17 09:00 Proscar PO DAILY [facility] Furosemide 20 mg 05/24/17 21:00 Lasix Tab PO d [facility] Ceftriaxone Sodium 1 gm/ 50 mls @ 75 mls/hr 05/25/17 09:00 Sodium Chloride IV DAILY [facility] Lisinopril 10 mg 05/24/17 21:00 Zestril PO 1/2 tab daily [facility] Methylprednisolone Sodium Succinate 80 mg 05/25/17 05:00 Solu-Medrol 125 Mg IVP Q8HR [facility] Metoprolol Tartrate 50 mg 05/24/17 21:00 Lopressor PO 1/2 tab BID [facility] Non-Formulary Medication 25 mg 05/24/17 21:00 05/24/17 22:53 Carbidopa/Levodopa [Carbidopa-Levo 25-100 Mg Odt] PO Not Given TID DARLIN Non-Formulary Medication 10 mg 05/24/17 21:00 05/24/17 23:08 Hydroxyzine Hcl [Hydroxyzine Hcl] PO Not Given TID [facility] Non-Formulary Medication 20 mg 05/25/17 09:00 Omeprazole [Prilosec] PO DAILY [facility] Non-Formulary Medication 20 mg 05/25/17 09:00 Pravastatin Sodium [Pravastatin Sodium] PO DAILY [facility] Non-Formulary Medication 225 mg 05/24/17 21:00 05/24/17 23:08 Propafenone Hcl [Propafenone Hcl] PO Not Given Q8HR [facility] Non-Formulary Medication 0.75 mg 05/24/17 21:00 05/24/17 23:08 Ropinirole Hcl [Ropinirole Hcl] PO Not Given BEDTIME [facility] Non-Formulary Medication 400 mg 05/25/17 09:00 Theophylline Anhydrous [Theophylline] PO DAILY [facility] Sodium Chloride 1 syr 05/24/17 19:16 05/24/17 22:53 Saline Flush IVF 1 syr PRN PRN Administration To flush IV Spironolactone 25 mg 05/25/17 09:00 Aldactone PO DAILY [facility] Tamsulosin HCl 0.4 mg 05/25/17 09:00 Flomax PO DAILY [facility] Discontinued Medications Generic Name Dose Route Start Last Admin Trade Name Mahendra PRN Reason Stop Dose Admin Albuterol/Ipratropium 1 vial 05/24/17 19:16 05/24/17 19:41 Duoneb NEB 05/24/17 19:17 1 vial ONCE STA Administration Enoxaparin Sodium 40 mg 05/24/17 20:39 05/24/17 22:53 Lovenox SUBCUT 05/24/17 20:40 40 mg ONCE STA Administration Ceftriaxone Sodium 1 gm/ 50 mls @ 75 mls/hr 05/24/17 20:39 05/24/17 22:53 Sodium Chloride IV 05/24/17 21:18 75 mls/hr ONCE STA Administration Methylprednisolone Sodium Succinate 125 mg 05/24/17 19:16 05/24/17 19:42 Solu-Medrol 125 Mg IVP 05/24/17 19:17 125 mg ONCE STA Administration Methylprednisolone Sodium Succinate 125 mg 05/24/17 20:40 05/24/17 22:43 Solu-Medrol 125 Mg IVP 05/24/17 20:41 Not Given ONCE STA Vital Signs: Temp Pulse Resp BP Pulse Ox 05/24/17 19:01 99.8 F H 89 32 H 116/66 95 Departure - Departure Time of Disposition: 21:00 Disposition: ADMITTED INPATIENT Discharge Problem: COPD exacerbation Condition: Fair Pt referred to PMD for follow-up: Yes IPMP verified?: No Allergies/Adverse Reactions: Allergies No Known Allergies Allergy (Verified 05/24/17 19:08) Home Medications: Ambulatory Orders Omeprazole [Prilosec] 20 mg PO DAILY 09/13/12 Pravastatin Sodium 20 mg PO DAILY 09/13/12 Spironolactone [Aldactone] 25 mg PO DAILY 09/13/12 Carbidopa/Levodopa [Carbidopa-Levo 25-100 mg Odt] 25 mg PO TID 03/28/14 Cholecalciferol (Vitamin D3) [Vitamin D3] 1,000 unit PO DAILY 03/28/14 Docusate Sodium 100 mg PO BID 03/28/14 Tamsulosin HCl [Flomax] 0.4 mg PO DAILY 03/28/14 Albuterol Sulfate [Proventil Hfa] 6.7 gm IH QID 04/07/17 Furosemide 20 mg PO d 04/07/17 Hydroxyzine HCl 10 mg PO TID 04/07/17 Lisinopril 10 mg PO 1/2 tab daily 04/07/17 Metoprolol Tartrate 50 mg PO 1/2 tab BID 04/07/17 Propafenone HCl 225 mg PO Q8HR 04/07/17 Ropinirole HCl 0.75 mg PO BEDTIME 04/07/17 Escitalopram Oxalate [Lexapro] 10 mg PO DAILY #30 tablet 05/04/17 Hydrocodone Bit/Acetaminophen [[place] 5-325] 1 tab PO BID PRN #30 tablet Cephalexin [Keflex] 500 mg PO BID #10 capsule 05/17/17 Neomycin/Polymyxin B/Dexametha [[place]-Sghel-Radbxmyh Eye Drop] 5 ml OP QID #1 drops.susp 05/17/17 Prednisone 10 mg PO BIDWM #10 tablet 05/17/17 Aspirin [Lo-Dose Aspirin EC] 81 mg PO DAILY 05/24/17 Finasteride 5 mg PO DAILY 05/24/17 Theophylline Anhydrous [Theophylline] 400 mg PO DAILY 05/24/17
--- NOTE | 2017-05-24 20:30 | DI ---
EXAM: Single-view chest HISTORY: Shortness of breath COMPARISON: Single-view chest 05/14/2017 FINDINGS: The cardiomediastinal silhouette is stable. There is a stable left-sided automatic implan table cardiac defibrillator device.. There are moderate emphysematous changes.. There is no evidenc e of infiltrate or effusion. IMPRESSION: There is sinus change without evidence of active pulmonary disease. Stable automatic implantable cardiac defibrillator device
[2017-05-24] MEDS ORDERED: LOVENOX SUBCUT STA (20:39)
[2017-05-24] MEDS ORDERED: ROCEPHIN 1 GM in SODIUM CHLORIDE 50 ML IV STA (20:39)
[2017-05-24] MEDS ORDERED: NON-FORMULARY MEDICATION (Hydroxyzine Hcl [Hydroxyzine Hcl] 10 MG) PO SCH (21:00)
[2017-05-24] MEDS ORDERED: LEVODOPA PO SCH (21:00)
[2017-05-24] MEDS ORDERED: ROPINIROLE HCL PO SCH (21:00)
[2017-05-24] MEDS ORDERED: LASIX TAB PO SCH (21:00)
[2017-05-24] MEDS ORDERED: CARBIDOPA PO SCH (21:00)
[2017-05-24] MEDS ORDERED: ROCEPHIN ONE (22:47)
[2017-05-24] MEDS ORDERED: SINEMET 25-100 ONE (22:48)
[2017-05-24] MEDS: NORCO 5-325 PO PRN (22:52)
[2017-05-24] MEDS: COLACE PO SCH (22:52)
[2017-05-24] MEDS: PROPAFENONE HCL 225 MG PO SCH (23:08)
[2017-05-25] MEDS: DUONEB NEB SCH ×5 (00:55→23:09)
[2017-05-25] MEDS: SOLU-MEDROL 125 MG IVP SCH ×3 (05:34→20:38)
[2017-05-25] MEDS: LASIX TAB PO SCH (05:34)
[2017-05-25] MEDS: PROPAFENONE HCL 225 MG PO SCH (05:36)
[2017-05-25] MEDS ORDERED: THEOPHYLLINE ANHYDROUS 400 MG PO SCH (09:00)
[2017-05-25] MEDS ORDERED: NON-FORMULARY MEDICATION (Omeprazole [Prilosec] 20 MG) PO SCH (09:00)
[2017-05-25] MEDS ORDERED: PRAVASTATIN SODIUM 20 MG PO SCH (09:00)
[2017-05-25] MEDS: ALDACTONE PO SCH (09:24)
[2017-05-25] MEDS: ATARAX PO SCH ×3 (09:25→20:40)
[2017-05-25] MEDS: FLOMAX PO SCH (09:27)
[2017-05-25] MEDS: COLACE PO SCH ×2 (09:27→20:40)
[2017-05-25] MEDS: LOPRESSOR PO SCH ×2 (09:28→18:08)
[2017-05-25] MEDS: LEXAPRO PO SCH (09:28)
[2017-05-25] MEDS: RYTHMOL PO SCH ×3 (09:29→20:40)
[2017-05-25] MEDS: PRAVACHOL PO SCH (09:29)
[2017-05-25] MEDS: PROSCAR PO SCH (09:29)
[2017-05-25] MEDS: PRILOSEC PO SCH (09:29)
[2017-05-25] MEDS: SINEMET 25-100 PO SCH ×3 (09:31→20:40)
[2017-05-25] MEDS: VITAMIN D PO SCH (09:31)
[2017-05-25] MEDS: ZESTRIL PO SCH (09:31)
[2017-05-25] MEDS: ASPIRIN EC PO SCH (09:35)
--- NOTE | 2017-05-25 15:31 | RS.PTINEVL ---
Subjective - Patient information Date of Evaluation: 05/25/17 Date of Arrival on Unit: 05/24/17 Usual Living Arrangement: daughter Living Arrangement Comments: With daughter, son-in-law, grandson Medical History: COPD Medical History Comments:: [place] 2011 Surgical History: Tonsillectomy Surgical History Comments:: Appendectomy Subjective Information/ Patient Comments:: Patient states "I can get up and walk , I just have to take it slow and hold onto a wall or something." - Level of function Prior to this admission, the patient could do the following:: Independent Selfcare, Independent ADL's, Independent Ambulation, Participated in Social Activities Outside home Current Equipment Used at Home: Cane, 02, neb machine Interventions - Objective Patient Orientation: Person, Place, Time, Situation Current Interventions: Oxygen, Telemetry Range of Motion - ROM Right Lower Extremity AROM: WFL's Left Lower Extremity AROM: WFL's Muscle Strength - Muscle Strength Comments:: LE strength 4+/5 throughout. Sensation - Sensation Right Lower Extremity Sensation: Intact/Normal Left Lower Extremity Sensation: Intact/Normal Balance - Sitting Balance and Reactions Static Sitting Balance: Good Dynamic Sitting Balance: Good - Standing Balance and Reactions Static Standing Balance: Good (-) Dynamic Standing Balance: Good (-) Standing Equilibrium Reactions: Within Normal Limits Left, Within Normal Limit Right Standing Protective Reactions: Within Normal Limits Left, Within Normal Limit Right Functional Mobility - Bed Mobility Rolling R/L: Independent Scooting: Independent Supine to Sit: Independent Sit to Supine: Independent - Transfers Sit to Stand: Supervision, CGA, 1 person assist Stand to Sit: Supervision, CGA, 1 person assist Stand Pivot Transfers: Supervision, CGA, 1 person assist - Safety Awareness Safety Awareness: Fair Ambulation - Ambulation Weight Bearing Status: FWB Assistive Device Used: Straight Cane Distance: 40 feet Assistance needed with Ambulation: CGA, 1 person assist, Tactile Cues Quality of Ambulation: Patient presents to be slightly unsteady. Upon ambulating to the bathroom, patient holds onto the garcía to steady himself. Ambulation in outside the room with straight cane in the right hand with CGA. He is possibly unsteady due to wearing on nonskid socks. O2 level at 98 percent upon return to room. Gait Deviations: Wide Based gait, Ataxic gait (slightly), Forward posture Factors Affecting Ambulation: Decreased Balance, Weakness, Decreased Safety Treatment time - Time with patient Total treatment time: 20 (mins) Assessment - Assessment Problem List:: Decreased safety/Risk of falls, Weakness Rehab Potential: Good Further Therapy Indicated?: Yes Comments: Will a few more times to assess Mr. Ackerman's ambulation with his shoes on and for safety instructions. Evaluation Complexity: HISTORY: Medium (COPD, weakness, risk for falls), EXAM OF BODY SYSTEMS: Medium (strength, balance, mobility, safety), CLINICAL PRESENTATION: Medium, CLINICAL DECISION MAKING: Medium Short Term Goals GOAL #1: Pt to amb. with cane supvn and good base of support. Goal to be met by: 05/26/17 GOAL #2: Pt to consistently use UE to push from seated surface for transfers. Goal to be met by: 05/26/17 [facility] Goals GOAL #1: Transfers with good safety independently. Goal to be met by: 05/27/17 GOAL #2: Amb. with cane with good safety, SBA to independent. Goal to be met by: 05/27/17 Plan Plan of Care: Self-Care/Home Management Frequency of Treatment: 1-2 X day, as tolerated Duration of Treatment: 2-3 days Anticipated Discharge Destination: Home Has the Physician been added for Co-signature?: Yes
--- NOTE | 2017-05-25 16:56 | RS.OTINEVL ---
Subjective - Patient information Date of Evaluation: 05/25/17 Date of Arrival on Unit: 05/24/17 Usual Living Arrangement: daughter Living Arrangement Comments: With daughter, son-in-law, grandson Home Environment: House, Ramp Medical History: COPD Medical History Comments:: 2011 Surgical History: Tonsillectomy Surgical History Comments:: Appendectomy Medications: TIA, Dizzy, syncope, HTN, DD, COPD Subjective Information/ Patient Comments:: "I am 82 y/o. I use a cane. My grandson made a ramp for me and my . The steps just kill me." - Level of function Prior to this admission, the patient could do the following:: Independent Selfcare, Independent ADL's, Independent Ambulation, Participated in Social Activities Outside home Current Equipment Used at Home: Cane, 02, neb machine Pain Assessment - Pain Pain Score: 8 Side: right Pain Location Body Site: Shoulder Pain Aggravating Factors: Changing Position Interventions - Objective Patient Orientation: Place, Time, Situation Current Interventions: IV's, Oxygen, Telemetry Observation: Pt is SOA while resting in the bed. Pt had been up and transferred to the bathroom with assistance. Interventions - ROM Right Upper Extremity AROM: Slight limitation Left Upper Extremity AROM: WFL's - Strength Right Upper Extremity Strength: Severe Weakness Left Upper Extremity Strength: Mild Weakness - Sensation Right Upper Extremity Sensation: Intact/Normal Left Upper Extremity Sensation: Intact/Normal Balance - Sitting Balance Static Sitting Balance: Fair Dynamic Sitting Balance: Fair - Standing Balance Static Standing Balance: Poor Dynamic Standing Balance: Poor - Comments Balance Assessment Comments: Pt is not safe with transfers. ADL Skills - Self Feeding Self Feeding: Independent - Grooming Grooming: Min Assist - Bathing Bathing UE: Min Assist Bathing LE: Min Assist - Dressing Dressing UE: Min Assist Dressing LE: Min Assist - Toilet Management Toileting Management: Min Assist Functional Mobility - Bed Mobility Rolling R/L: Independent Scooting: Independent Supine to Sit: Independent Sit to Supine: Independent - Transfers Sit to Stand: Min Assist Stand to Sit: Min Assist Stand Pivot Transfers: Mod Assist - Ambulation Weight Bearing Status: WBAT Assistive Device Used: Straight Cane Assistance needed with Ambulation: Mod Assist - Safety Awareness Safety Awareness: Good Additional Treatment Performed - Time with patient Total treatment time: 20 Activities Patient Interests:: Watching Television, Puzzles/Games Patient Education Patient Education: Home Exercise Program, Home Safety, Education of Plan of Care Teaching Recipient: Patient Teaching Methods: Discussion Assessment Problem List:: Decreased level of function, Requires training/education, Decreased safety/Risk of falls, Weakness Rehab Potential: Good Further Therapy Indicated?: Yes Evaluation Complexity: HISTORY: Medium, EXAM OF BODY SYSTEMS: Medium, CLINICAL DECISION MAKING: Medium Short Term Goals - Goals GOAL 1: Pt pain in RUE to decrease to 3/10. Goal to be met by: 06/01/17 GOAL 2: Pt to increase activity tolerance to 10 minutes with RW. Goal to be met by: 06/01/17 GOAL 3: Pt Standing balance to improve to F-/Good. Goal to be met by: 06/01/17 [facility] Goals GOAL 1: Pt pain in RUE to decrease to 1-2/10. Goal to be met by: 06/08/17 GOAL 2: Pt to increase activity tolerance to 15 minutes with RW. Goal to be met by: 06/08/17 GOAL 3: Pt Standing balance to improve to Good. Goal to be met by: 06/08/17 Plan Plan of Care: Therapeutic EX, Neuromuscular Re-Educ, Therapeutic Activity, Self- Care/Home Management Modalities: Hot Pack, Ultrasound, Electrical Stimulation Frequency of Treatment: 1-2 X day, as tolerated Duration of Treatment: 2 Weeks Anticipated Discharge Destination: Home Has the Physician been added for Co-signature?: Yes
[2017-05-25] MEDS: PULMICORT 0.5 MG/2 ML NEB SCH (17:07)
[2017-05-25] MEDS: COUMADIN PO SCH (18:07)
[2017-05-25] MEDS: NORCO 5-325 PO PRN (19:49)
[2017-05-25] MEDS: ROCEPHIN 1 GM in SODIUM CHLORIDE 50 ML IV SCH (20:38)
[2017-05-25] MEDS: REQUIP PO SCH (20:39)
[2017-05-26] MEDS: DUONEB NEB SCH ×3 (04:40→19:26)
[2017-05-26] MEDS: PULMICORT 0.5 MG/2 ML NEB SCH ×2 (04:40→19:26)
[2017-05-26] MEDS: SOLU-MEDROL 125 MG IVP SCH ×3 (05:33→21:15)
[2017-05-26] MEDS: LASIX TAB PO SCH (05:34)
[2017-05-26] MEDS: RYTHMOL PO SCH ×3 (05:34→21:20)
[2017-05-26] MEDS: PRILOSEC PO SCH (05:34)
[2017-05-26] MEDS: ASPIRIN EC PO SCH (09:33)
[2017-05-26] MEDS: ATARAX PO SCH ×3 (09:33→21:22)
[2017-05-26] MEDS: ALDACTONE PO SCH (09:33)
[2017-05-26] MEDS: FLOMAX PO SCH (09:34)
[2017-05-26] MEDS: COLACE PO SCH ×2 (09:34→21:22)
[2017-05-26] MEDS: LOPRESSOR PO SCH ×2 (09:35→17:01)
[2017-05-26] MEDS: PRAVACHOL PO SCH (09:35)
[2017-05-26] MEDS: LEXAPRO PO SCH (09:35)
[2017-05-26] MEDS: PROSCAR PO SCH (09:35)
[2017-05-26] MEDS: VITAMIN D PO SCH (09:36)
[2017-05-26] MEDS: SINEMET 25-100 PO SCH ×3 (09:36→21:22)
[2017-05-26] MEDS: ZESTRIL PO SCH (09:36)
[2017-05-26] MEDS: COUMADIN PO SCH (17:02)
[2017-05-26] MEDS: ROCEPHIN 1 GM in SODIUM CHLORIDE 50 ML IV SCH (21:15)
[2017-05-26] MEDS: REQUIP PO SCH (21:21)
[2017-05-27] MEDS: PULMICORT 0.5 MG/2 ML NEB SCH (05:53)
[2017-05-27] MEDS: DUONEB NEB SCH ×3 (05:53→14:05)
[2017-05-27] MEDS: LASIX TAB PO SCH (05:55)
[2017-05-27] MEDS: PRILOSEC PO SCH (05:55)
[2017-05-27] MEDS: RYTHMOL PO SCH ×2 (05:55→12:33)
[2017-05-27] MEDS: SOLU-MEDROL 125 MG IVP SCH ×2 (05:55→13:00)
[2017-05-27 09:56] VITALS: BP 125/68; TEMP 97.9
[2017-05-27] MEDS: ALDACTONE PO SCH (10:10)
[2017-05-27] MEDS: ASPIRIN EC PO SCH (10:11)
[2017-05-27] MEDS: FLOMAX PO SCH (10:12)
[2017-05-27] MEDS: COLACE PO SCH (10:12)
[2017-05-27] MEDS: LEXAPRO PO SCH (10:13)
[2017-05-27] MEDS: LOPRESSOR PO SCH (10:13)
[2017-05-27] MEDS: PRAVACHOL PO SCH (10:13)
[2017-05-27] MEDS: PROSCAR PO SCH (10:14)
[2017-05-27] MEDS: SINEMET 25-100 PO SCH (10:14)
[2017-05-27] MEDS: VITAMIN D PO SCH (10:15)
[2017-05-27] MEDS: ZESTRIL PO SCH (10:15)
[2017-05-27] MEDS: ATARAX PO SCH (10:19)
--- NOTE | 2017-05-27 13:38 | HP ---
DATE OF SERVICE: 05/24/17 CHIEF COMPLAINT: Shortness of breath. HISTORY OF PRESENT ILLNESS: This is a 81-year-old male with history of COPD, oxygen dependent, CAD, CHF came to the emergency room with worsening cough and congestion. He has been using home nebulizer which was not helping so he came to the emergency room. He was seen by Dr. Sweet in the ER for worsening, cough, congestion and shortness of breath. No fever or chills. When he came to the emergency room, PT/INR 1.0. ABG showed pH 7.512, pc02 42, p02 69. Chest x-ray was done. There is sinus change without evidence of active pulmonary disease, stable automatic implantable cardiac defibrillator defice. Even after giving breathing treatment and steroids, the patient was still having difficult breathing. At the time, patient is being admitted to the hospital for IV antibiotics, breathing treatments and steroids. REVIEW OF SYSTEMS: CONSTITUTIONAL: Weakness, tiredness. No fever, no chills. HEENT: Normal. ENDOCRINE: No weight gain; no weight loss. CVS: No chest pain. No PND, no orthopnea. No shortness of breath. No PND, no orthopnea. RESPIRATORY: Positive for cough, congestion and shortness of breath. No hemoptysis. GI: No nausea, no vomiting. No abdominal pain. No melena. : No hematuria. No polyuria. MUSCULOSKELETAL: No joint swelling. PSYCHIATRIC: Not anxious. No depression. No suicidal thoughts. No homicidal thoughts. SKIN: Intact, no open lesions. PAST MEDICAL HISTORY: CAD CHF HYPERTENSION DYSLIPIDEMIA OSTEOARTHRITIS DJD SPINE ANEMIA LONG-TERM COAGULATION ATRIAL FIBRILLATION ON COUMADIN SLEEP APNEA ON CPAP GERD PAST SURGICAL HISTORY: Appendectomy Exporatory laparotomy for stomach cancer PERSONAL HISTORY: Smoker - started again from last one week. FAMILY HISTORY: Significant for the heart problems. MEDICATIONS: (HOME) Prilosec Pravastatin Spironolactone Carbidopa/Levadopa Tamsulosin Docusate Vitamin D3 Hydroxyzine Metoprolol Albuterol Propafenone Furosemide Lisinopril Ropinirole Escitalopram Hydrocodone Keflex Neomycin Prednisone Aspirin Finasteride ALLERGIES: NKDA PHYSICAL EXAMINATION: V/S: BP 116/66, respiratory rate 32, heart rate 89, temperature 99.8, saturation 91 on 2L. GENERAL: Sick looking male lying in bed. HEENT: Atraumatic, normocephalic. No scleral icterus. Mucosa dry. NECK: Supple. No JVD, no bruit. No lymphadenopathy. No thyromegaly. HEART: S1, S2 normal. No murmur. No cyanosis or clubbing. No ascites. LUNGS: Decreased with mild expiratory wheezing all over the lungs with basilar crackles. No rales or rhonchi. ABDOMEN: Soft, nontender. Bowel sounds are active. No CVA tenderness. No rigidity or guarding. EXTREMITIES: 1+ edema. No cyanosis or clubbing MUSCULOSKELETAL: Normal joints, no swelling. NEUROLOGIC: Normal. SKIN: Intact and dry. LYMPHATIC: No lymph nodes palpable. LABS: Sodium 140, potassium 4.6, chloride 99, bicarb 33, BUN 28, creatinine 1.16, glucose 155. First set of cardiac enzymes are negative. White count 8.10, hemoglobin 9.3, hematocrit 29.6, platelet count 194. ASSESSMENT: 1. COPD EXACERBATION SECONDARY TO BRONCHITIS 2. HISTORY OF CAD 3. CHF 4. HYPERTENSION 5. ATRIAL FIBRILLATION ON DETENTION ANTICOAGULATION 6. AUTOMATIC DEFIBRILLATOR 7. ANEMIA 8. RESTLESS LEG SYNDROME 9. SLEEP APNEA ON CPAP PLAN: 1. Admit patient to the regular floor 2. CBC and CMP today and daily 3. Cardiac enzymes and troponin 4. Rocephin 1 gm daily 5. Solu-Medrol 80 q.8hr 6. Breathing treatments 7. Daily I & O 8. Resume Coumadin 4 mg TIME SPENT: MORE THAN 75 minutes MTDD
--- NOTE | 2017-05-27 13:54 | PN ---
DATE OF SERVICE: 05/25/17 SUBJECTIVE: Shortness of breath is a little bit better, uses a CPAP at night. Shortness with minimal exertion, still coughing, not able to bring up any phlegm. REVIEW OF SYSTEMS: CONSTITUTIONAL: No fever, no chills. HEENT: Normal. ENDOCRINE: No weight gain, no weight loss. CVS: No angina symptoms. No CHF symptoms. No palpitations. No atypical chest pain for CAD. Shortness of breath is better with minimal exertion. No PND, no orthopnea. RESPIRATORY: Cough. No hemoptysis. GI: No nausea, no vomiting. No abdominal pain. : No hematuria. No polyuria. MUSCULOSKELETAL: No joint swelling. PSYCHIATRIC: Not anxious. No depression. No suicidal thoughts. No homicidal thoughts. SKIN: Intact. No rash. PHYSICAL EXAMINATION: V/S: BP 120/66, respiratory rate 21, heart rate 70, temperature 97.6, saturation 95 on 2L. HEENT: Normocephalic, atraumatic. Mucosa dry. Pallor positive. No icterus. NECK: Supple. No JVD, no carotid bruit. No lymphadenopathy. LUNGS: Decreased basilar crackles. Clear to auscultation. No rales or rhonchi. HEART: S1, S2 normal. No S3. No murmur, gallop or regurgitation. ABDOMEN: Soft, nontender. Bowel sounds active. No rigidity. No rebound or guarding. No CVA tenderness. EXTREMITIES: No pedal edema. No clubbing or cyanosis MUSCULOSKELETAL: No joint swelling. NEUROLOGIC: The patient is awake, alert. LYMPHATIC: No lymph nodes palpable. SKIN: Intact. LABS: White count 4.78, hemoglobin 8.8, hematocrit 27.8, platelet count 179. Sodium 135, potassium 5.0, chloride 98, bicarb 30, BUN 32, creatinine 1.11, glucose 267. ASSESSMENT: 1. COPD EXACERBATION SECONDARY TO BRONCHITIS 2. HYPOXEMIC RESPIRATORY FAILURE, CHRONIC NEEDING OXYGEN 3. SLEEP APNEA ON CPAP 4. CAD 5. CHF 6. ASCD 7. ON LONG-TERM ANTICOAGULATION 8. OSTEOARTHRITIS 9. DJD SPINE PLAN: 1. Continue Rocephin 2. Continue breathing treatments 3. Solu-Medrol 4. Daily I & O's 5. Will resume Coumadin 6 Will start doing daily PT/INR TIME SPENT: More than 35 minutes MTDD
--- NOTE | 2017-05-27 14:26 | PN ---
DATE OF SERVICE: 05/26/17 SUBJECTIVE: The patient just awoke from sleep. He complains about still getting short of breath with minimal exertion and coughing some, getting clear to yellow phlegm. No fever, no chills. No PND, no orthopnea. REVIEW OF SYSTEMS: CONSTITUTIONAL: No fever, no chills. HEENT: Normal. ENDOCRINE: No weight gain, no weight loss. CVS: No angina symptoms. No CHF symptoms. No palpitations. No atypical chest pain for CAD. Shortness of breath with minimal exertion. No PND, no orthopnea. RESPIRATORY: Cough, no hemoptysis. GI: Positive for constipation. No nausea, no vomiting. No abdominal pain. : No hematuria. No polyuria. MUSCULOSKELETAL: No joint swelling. PSYCHIATRIC: Not anxious. No depression. No suicidal thoughts. No homicidal thoughts. SKIN: Intact. No rash. PHYSICAL EXAMINATION: V/S: BP 115/59, respiratory rate 24, heart rate 70, temperature 98.1, saturation 94 on 2L. HEENT: Normocephalic, atraumatic. Mucosa dry. NECK: Supple. No JVD, no carotid bruit. No lymphadenopathy. LUNGS: Decreased entry with crackles. Mild expiratory wheeze. No rales or rhonchi. HEART: S1, S2 normal. No S3. No murmur, gallop or regurgitation. ABDOMEN: Soft, nontender. Bowel sounds active. No rigidity. No rebound or guarding. No CVA tenderness. EXTREMITIES: No pedal edema. No clubbing or cyanosis MUSCULOSKELETAL: No joint swelling. NEUROLOGIC: Awake, alert, oriented times three. No focal deficit. LYMPHATIC: No lymph nodes palpable. SKIN: Intact. LABS: Sodium 133, potassium 5.0, chloride 96, bicarb 30, BUN 32, creatinine 0.94. White count 17.43, hemoglobin 8.7, hematocrit 27.2, platelet count 211. ASSESSMENT: 1. COPD EXACERBATION SECONDARY TO BRONCHITIS 2. HYPOXEMIC RESPIRATORY FAILURE 3. COPD NEEDING OXYGEN 4. CAD 5. CHF 6. AICD PLACEMENT 7. CHCF ANTICOAGULATION 8. DEPRESSION 9. ANXIETY 10. DJD SPINE PLAN: 1. Continue Rocephin 2. Breathing treatment 3. Solu-Medrol 4. Daily I & O's 5. Out of bed to chair 6. Activity as tolerated 7. Continue Coumadin 4 mg 8. Continue to monitor PT/INR 9. Anticoagulation risk with intracranial bleed and GI bleed have been discussed. The patient verbalized understanding. TIME SPENT: More than 35 minutes MTDD
--- NOTE | 2017-05-31 14:32 | DS ---
DATE OF SERVICE: 05/27/17 FINAL DIAGNOSIS: 1. COPD exacerbation secondary to the acute bronchitis 2. Acute on chronic heart failure 3. COPD 4. Coronary artery disease 5. CHF 6. Hypertension 7. AICD placement 8. Atrial fibrillation on shelter anticoagulation 9. Depression 10.Anxiety 11.Parkinson's disease 12.Oxygen dependant DISCHARGE INSTRUCTIONS: Discharge patient home. Continue the rest of the home medications. MEDICATIONS AT DISCHARGE: Propafenone Proventil Aspirin Carbidopa-levodopa Vitamin D 3 Docusate Lexapro Finasteride Lasix Hydrocodone Hydroxyzine Lisinopril Metoprolol Neomycin Prilosec Pravastatin Prednisone Ropinirole Aldactone Flomax Coumadin NEW PRESCRIPTIONS: Keflex 500mg twice a day for 10 days Prednisone 10mg twice a day 5 days DIET INSTRUCTIONS: Cardiac and Healthy ACTIVITY: As much as tolerated SMOKING: Current everyday smoker. DISEASE SPECIFIC EDUCATION: cut out marker anticoagulation and intracranial bleed Antibiotic use and diarrhea been discussed COPD and needing for the pneumonia vaccination discussed HOSPITAL COURSE: Natan Ackerman who is a 81 year old male came to the emergency room with cough, congestion and shortness of breath. He was taking the breathing treatments and not getting any better so he came to the emergency room and seen by Dr. Jean. ABG done in the ER showed the pH 7.51, pCO2 42, pO2 69. WBC normal, PT/INR normal and patient did saw that he was not taking the Coumadin as patient did not renew his medication. Once he was admitted with COPD exacerbation and bronchitis the patient was started on the Coumadin and started on the IV Rocephin, DUO NEBS and Solu-Medrol. With the given treatment gradually he started feeling better. The patient also has sleep apnea and he uses the CPAP. Solu-Medrol was given 80 Q 8 hours. Continued home medication. Lovenox was given. DVT prophylaxis as the Coumadin was sub therapeutic. Continued with the Rocephin. Continued Coumadin at 4mg. Still PT/INR did not change until today. We gave extra dose of Coumadin today. He was feeling better, up and about walking. Still has shortness of breath with minimal exertion. At that time the patient has been doing better today. Did not have any complications. He is being discharged home. explained about the exercise and explained about the use of Coumadin with atrial fibrillation and CHADS 2 VASC score on the patient is 4. The patient was again explained about need of Coumadin in review of this atrial fibrillation and verbalized understanding. He promised to continue the medication. As patient is better he is being discharged home today. TIME SPENT: MORE THAN 65 MINUTES MTDShanelle
== END 2017-05-27 14:20 | disposition home or self-care (01) | DRG 191 ==
LOC: ED 19:00 → SCU 20:46
PROVIDERS: ADMIT Emergency Medicine; ATTEND Emergency Medicine
DX: J44.1 Chronic obstructive pulmonary disease with (acute) exacerbation (principal); J96.11 Chronic respiratory failure with hypoxia; J20.9 Acute bronchitis, unspecified; J44.0 Chronic obstructive pulmonary disease with (acute) lower respiratory infection; R06.02 Shortness of breath; I48.91 Unspecified atrial fibrillation; I25.2 Old myocardial infarction; I50.9 Heart failure, unspecified; I25.10 Atherosclerotic heart disease of native coronary artery without angina pectoris; F41.8 Other specified anxiety disorders; G20 Parkinson's disease; T45.516A Underdosing of anticoagulants, initial encounter; G47.30 Sleep apnea, unspecified; M47.9 Spondylosis, unspecified; M19.90 Unspecified osteoarthritis, unspecified site; R05 Cough; Z95.810 Presence of automatic (implantable) cardiac defibrillator; Z79.01 Long term (current) use of anticoagulants; Z79.899 Other long term (current) drug therapy; Z99.81 Dependence on supplemental oxygen; Z99.89 Dependence on other enabling machines and devices
CPT/HCPCS: 36415; 80053; 82803; 83605; 83880; 84145; 85025; 85610; 87040; 87081; 87502; 93005; 93010; 94640; 96374; 99284; 99285

== ENCOUNTER 2017-07-15 18:11 | Inpatient (IN) ==
[2017-07-15 18:24] VITALS: BMI 20.6
--- NOTE | 2017-07-15 18:51 | ED.PDOC ---
General ED Provider: Dr. BINTA PEARCE Chief Complaint: Shortness of Air Stated Complaint: Shortness of breath; Increasing over past 3 days. O2 dependent at 2l/nc. Hx COPD. Hx tobacco abuse. Down to 4 cigarettes today. Resps labored. Arrived per [facility]. Time Seen by Physician: 18:40 Mode of Arrival: Ambulance Information Source: [facility] and Triage Documentation Reviewed and Agree: Yes Reviewed sepsis parameters & appropriate labs ordered?: Yes System Inflammatory Response Syndrome: Not Applicable Sepsis Protocol: For patient's 13 years and over: Temp is 96.8 and below OR 101 and greater Pulse >90 BPM Resp >20/minute Acutely Altered Mental Status Are patient's symptoms suggestive of a new infection, such as: -Pneumonia -Skin, Soft Tissue -Endocarditis -UTI -Bone, Joint Infection -Implantable Device -Acute Abdominal Infection -Wound Infection -Meningitis -Blood Stream Catheter Infection -Unknown System Inflammatory Response Syndrome: Not Applicable Respiratory Complaint Exam - Shortness of Air Complaint/Exam Symptoms Are: Still present Timing: Intermittent Initial Severity: Moderate Current Severity: Mild Character: Reports: Dyspnea at rest, Dyspnea on exertion Aggravating: Reports: Movement, Deep breaths, URI Alleviating: Reports: Bronchodilators, Oxygen, Upright position Associated Signs and Symptoms: Reports: Cough, Wheezing, Chest pain with cough, Chest pain. Denies: Fever, Chills, Diaphoresis, Nasal congestion, Dizziness Related History: Reports: Similar episode History of Healthcare-Acquired Pneumonia: No Pulmonary Embolism Risk Factors: Reports: None Cardiac Risk Factors: Reports: Prior NE, CAD, Hypertension, CHF Pseudomonas Risk Factors: Reports: None Tuberculosis Risk Factors: Reports: None Home Oxygen Use: Yes Recent Stress Test: No Respiratory Distress: Moderate Stridor Present: No Tracheal Deviation: No Subcutaneous Emphysema: No Accessory Muscle Use: No Retractions: Not Present Diminished Breath Sounds: Yes Fatigue: Yes Leg Swelling: No Perico's Sign Present: No Grunting Respirations: No Kussmaul Respirations: No Differential Diagnoses: CHF, COPD Exacerbation Review of Systems - Review Of Systems Constitutional: Reports: Fever, Weakness Eyes: Reports: No symptoms Ears, Nose, Mouth, Throat: Reports: No symptoms Respiratory: Reports: Cough, Orthopnea, Short of air, Wheezing Cardiac: Reports: No symptoms. Denies: Chest pain, Irregular heart rate, Lightheadedness, Palpitations, Syncope GI: Reports: No symptoms : Reports: No symptoms Musculoskeletal: Reports: No symptoms Skin: Reports: No symptoms Neurological: Reports: No symptoms Endocrine: Reports: No symptoms Hematologic/Lymphatic: Reports: No symptoms All Other Systems: Reviewed and Negative Past Medical History - Past Medical History Previously Healthy: No Endocrine: Reports: Dyslipidemia Cardiovascular: Reports: Hypertension, CHF, A-Fib Respiratory: Reports: COPD Hematological: Reports: None Gastrointestinal: Reports: GERD Genitourinary: Reports: None Neuro/Psych: Reports: None Musculoskeletal: Reports: None Cancer: Reports: None Other Pertinent Past Medical History: Sleep Apnea - Surgical History General Surgical History: Reports: Appendectomy, Pacemaker (ICD), Other ( EXP LAP) - Family History Family History: Reports: Unknown - Social History Smoking Status: Current some day smoker, Light tobacco smoker Hx Substance Use: No Alcohol Screening: None Physical Exam - Physical Exam Appearance: Ill-appearing, Thin Ill-appearing: Moderate Pain Distress: Mild Eyes: DAVID, EOMI, Conjunctiva clear ENT: Ears normal, Nose normal, Oropharynx normal Neck: Supple Respiratory: Airway patent, Breath sounds diminished, Crackles, Rhonchi, Wheezes Cardiovascular: RRR, Pulses normal, No rub, No murmur GI/: Soft, Nontender, No masses Musculoskeletal: Normal strength, ROM intact, No edema Skin: Warm, Dry, Normal color Neurological: Sensation intact, Motor intact, Alert, Oriented Psychiatric: Affect appropriate, Mood appropriate Critical Care Note - Critical Care Note Total Time (mins): 30 Course - Course Hematology/Chemistry: 07/15/17 19:18 07/15/17 19:18 Orders, Labs, Meds: Lab Review 07/15/17 07/15/17 07/15/17 18:58 19:08 19:08 WBC RBC Hgb Hct MCV MCH MCHC RDW Coeff of Salomon Plt Count Immature Gran % (Auto) Neut % (Auto) Lymph % (Auto) [facility] % (Auto) Eos % (Auto) Baso % (Auto) Immature Gran # (Auto) Neut # (Auto) Lymph # (Auto) [facility] # (Auto) Eos # (Auto) Baso # (Auto) ESR Puncture Site Rb O2 Saturation 99.0 ABG pH 7.603 H* ABG pCO2 30.6 L ABG pO2 97.0 ABG HCO3 30.3 H ABG Total CO2 31 H ABG Base Excess 9 H Bryson Test + O2 Delivery Device Bnc Oxygen Liter Flow 2.00 FiO2 % 28.0 Sodium Potassium Chloride Carbon Dioxide Anion Gap BUN Creatinine Estimated GFR (MDRD) BUN/Creatinine Ratio Glucose Lactic Acid Calcium Total Bilirubin AST ALT Alkaline Phosphatase Troponin I B-Natriuretic Peptide Total Protein Albumin Globulin Albumin/Globulin Ratio Procalcitonin Urine Color Yellow Urine Clarity Clear Urine pH 7.0 Ur Specific [place] 1.020 Urine Protein Negative Urine Glucose (UA) Negative Urine Ketones Negative Urine Blood Negative Urine Nitrite Negative Urine Bilirubin Negative Urine Urobilinogen 0.2 Ur Leukocyte Esterase Negative Influ A Molecular Assay Negative by naat Influ B Molecular Assay Negative by naat 07/15/17 07/15/17 07/15/17:18 19:18 19:18 WBC 14.11 H RBC 3.52 L Hgb 9.6 L Hct 30.2 L MCV 85.8 MCH 27.3 MCHC 31.8 RDW Coeff of Salomon 15.7 H Plt Count 164 Immature Gran % (Auto) 0.4 Neut % (Auto) 76.6 Lymph % (Auto) 11.4 [facility] % (Auto) 9.8 Eos % (Auto) 1.4 Baso % (Auto) 0.4 Immature Gran # (Auto) 0.1 Neut # (Auto) 10.8 H Lymph # (Auto) 1.6 [facility] # (Auto) 1.4 Eos # (Auto) 0.2 Baso # (Auto) 0.1 ESR 37 H Puncture Site O2 Saturation ABG pH ABG pCO2 ABG pO2 ABG HCO3 ABG Total CO2 ABG Base Excess Bryson Test O2 Delivery Device Oxygen Liter Flow FiO2 % Sodium 139 Potassium 4.2 Chloride 100 Carbon Dioxide 28 Anion Gap 15.2 BUN 22 H Creatinine 1.03 Estimated GFR (MDRD) 69.00 BUN/Creatinine Ratio 21.35 Glucose 151 H Lactic Acid Calcium 9.4 Total Bilirubin 0.3 AST 15 ALT 6 L Alkaline Phosphatase 88 Troponin I 0.0150 B-Natriuretic Peptide 55 Total Protein 7.2 Albumin 3.4 Globulin 3.8 Albumin/Globulin Ratio 0.89 Procalcitonin Urine Color Urine Clarity Urine pH Ur Specific [place] Urine Protein Urine Glucose (UA) Urine Ketones Urine Blood Urine Nitrite Urine Bilirubin Urine Urobilinogen Ur Leukocyte Esterase Influ A Molecular Assay Influ B Molecular Assay 07/15/17 07/15/17 19:18 19:18 WBC RBC Hgb Hct MCV MCH MCHC RDW Coeff of Salomon Plt Count Immature Gran % (Auto) Neut % (Auto) Lymph % (Auto) [facility] % (Auto) Eos % (Auto) Baso % (Auto) Immature Gran # (Auto) Neut # (Auto) Lymph # (Auto) [facility] # (Auto) Eos # (Auto) Baso # (Auto) ESR Puncture Site O2 Saturation ABG pH ABG pCO2 ABG pO2 ABG HCO3 ABG Total CO2 ABG Base Excess Bryson Test O2 Delivery Device Oxygen Liter Flow FiO2 % Sodium Potassium Chloride Carbon Dioxide Anion Gap BUN Creatinine Estimated GFR (MDRD) BUN/Creatinine Ratio Glucose Lactic Acid 11.7 Calcium Total Bilirubin AST ALT Alkaline Phosphatase Troponin I B-Natriuretic Peptide Total Protein Albumin Globulin Albumin/Globulin Ratio Procalcitonin < 0.05 Urine Color Urine Clarity Urine pH Ur Specific [place] Urine Protein Urine Glucose (UA) Urine Ketones Urine Blood Urine Nitrite Urine Bilirubin Urine Urobilinogen Ur Leukocyte Esterase Influ A Molecular Assay Influ B Molecular Assay Orders Category Date Time Status ABG DRAW REQUEST Stat CARDIO 07/15/17 19:00 Ordered EKG-(ED ONLY) Stat CARDIO 07/15/17 18:58 Ordered NEBULIZER TREATMENT Stat CARDIO 07/15/17 19:01 Ordered IV [ED IV/MEDIPORT/POWERPORT] .ONCE EMERGENCY 07/15/17 18:58 Active ABG Stat LAB 07/15/17 18:58 Completed BLOOD CULTURE (ED ONLY) Stat LAB 07/15/17 19:18 Received BNP [B-TYPE NATRIURETIC PEPTIDE] Stat LAB 07/15/17 19:18 Completed CBC W/ AUTO DIFF Stat LAB 07/15/17 19:18 Completed CMP [COMPREHENSIVE METABOLIC PANEL] Stat LAB 07/15/17 19:18 Completed ESR Stat LAB 07/15/17 19:18 Completed FLU A & B MOLECULAR [FLU A/B MOLECULAR] Stat LAB 07/15/17 19:08 Completed LACTIC ACID Stat LAB 07/15/17 19:18 Completed PROCALCITONIN Stat LAB 07/15/17 19:18 Completed SPUTUM CULTURE Stat LAB 07/15/17 18:58 Uncollected TROPONIN I Stat LAB 07/15/17 19:18 Completed UA [URINALYSIS C & S IF INDICATED] Stat LAB 07/15/17 19:08 Completed 0.9 % Sodium Chloride [Saline Flush] MEDS 07/15/17 18:59 Ordered 1 syr IVF PRN PRN Acetaminophen [Tylenol] MEDS 07/15/17 19:38 Discontinued 650 mg PO ONCE STA Azithromycin [Zithromax] MEDS 07/15/17 19:09 Discontinued 500 mg PO ONCE STA Budesonide [Pulmicort 0.5 mg/2 ml] MEDS 07/15/17 18:59 Discontinued 1 vial NEB ONCE STA Ceftriaxone Sodium [Rocephin] MEDS 07/15/17 19:16 Discontinued 1 gm .ROUTE .STK-MED ONE Ceftriaxone Sodium [Rocephin] 1 gm MEDS 07/15/17 19:09 Discontinued 0.9 % Sodium Chloride [Sodium Chloride] 50 ml IV ONCE Levalbuterol HCl [Xopenex 1.25 mg] MEDS 07/15/17 18:59 Discontinued 1 vial NEB ONCE STA Methylprednisolone Sod Succ/Pf [Solu-Medrol 125 mg] MEDS 07/15/17 19:33 Discontinued 125 mg IVP ONCE STA CHEST, 1V AP ONLY Stat RADS 07/15/17 18:59 Completed Medications Generic Name Dose Route Start Last Admin Trade Name Freq PRN Reason Stop Dose Admin Sodium Chloride 1 syr 07/15/17 18:59 07/15/17 19:24 Saline Flush IVF 1 syr PRN PRN Administration To flush IV Discontinued Medications Generic Name Dose Route Start Last Admin Trade Name Freq PRN Reason Stop Dose Admin Acetaminophen 650 mg 07/15/17 19:38 07/15/17 19:44 Tylenol PO 07/15/17 19:39 650 mg ONCE STA Administration Azithromycin 500 mg 07/15/17 19:09 07/15/17 19:29 Zithromax PO 07/15/17 19:10 500 mg ONCE STA Administration Budesonide 1 vial 07/15/17 18:59 07/15/17 19:15 Pulmicort 0.5 Mg/2 Ml NEB 07/15/17 19:00 1 vial ONCE STA Administration Ceftriaxone Sodium 1 gm/ 50 mls @ 75 mls/hr 07/15/17 19:09 07/15/17 19:26 Sodium Chloride IV 07/15/17 19:48 75 mls/hr ONCE STA Administration Levalbuterol HCl 1 vial 07/15/17 18:59 07/15/17 19:15 Xopenex 1.25 Mg NEB 07/15/17 19:00 1 vial ONCE STA Administration Methylprednisolone Sodium Succinate 125 mg 07/15/17 19:33 07/15/17 19:19 Solu-Medrol 125 Mg IVP 07/15/17 19:34 125 mg ONCE STA Administration Vital Signs: Temp Pulse Resp BP Pulse Ox 07/15/17 18:37 94 L 07/15/17 18:14 99.9 F H 98 H 24 134/60 94 L Departure - Departure Time of Disposition: 20:45 Disposition: ADMITTED INPATIENT Discharge Problem: COPD exacerbation, Obstructive sleep apnea, Chronic systolic CHF (congestive heart failure) Discharge Problem: (Ruled Out): Exacerbation of chronic obstructive pulmonary disease associated with exposure to volcanic air pollution Instructions: Dehydration (ED) Condition: Good Pt referred to PMD for follow-up: Yes (PCP) IPMP verified?: No Additional Instructions: Monitor oral hydration and encourage daily Avoid Fluid overload by monitoring I/Os and daily weights Follow up Dr Ramirez next week Allergies/Adverse Reactions: Allergies No Known Allergies Allergy (Verified 07/15/17 18:25) Home Medications: Ambulatory Orders Omeprazole [Prilosec] 20 mg PO DAILY 09/13/12 Pravastatin Sodium 20 mg PO DAILY 09/13/12 Spironolactone [Aldactone] 25 mg PO DAILY 09/13/12 Carbidopa/Levodopa [Carbidopa-Levo 25-100 mg Odt] 25 mg PO TID 03/28/14 Cholecalciferol (Vitamin D3) [Vitamin D3] 1,000 unit PO DAILY 03/28/14 Docusate Sodium 100 mg PO BID 03/28/14 Tamsulosin HCl [Flomax] 0.4 mg PO DAILY 03/28/14 Albuterol Sulfate [Proventil Hfa] 6.7 gm IH QID 04/07/17 Furosemide 20 mg PO d 04/07/17 Hydroxyzine HCl 10 mg PO TID 04/07/17 Lisinopril 10 mg PO 1/2 tab daily 04/07/17 Metoprolol Tartrate 50 mg PO 1/2 tab BID 04/07/17 Propafenone HCl 225 mg PO Q8HR 04/07/17 Ropinirole HCl 0.75 mg PO BEDTIME 04/07/17 Escitalopram Oxalate [Lexapro] 10 mg PO DAILY #30 tablet 05/04/17 Hydrocodone Bit/Acetaminophen [Buchanan 5-325] 1 tab PO BID PRN #30 tablet Cephalexin [Keflex] 500 mg PO BID #10 capsule 05/17/17 Neomycin/Polymyxin B/Dexametha [Fzvnza-Lpfyn-Exxtybwx Eye Drop] 5 ml OP QID #1 drops.susp 05/17/17 Prednisone 10 mg PO BIDWM #10 tablet 05/17/17 Aspirin [Lo-Dose Aspirin EC] 81 mg PO DAILY 05/24/17 Finasteride 5 mg PO DAILY 05/24/17 Warfarin Sodium [Coumadin] 4 mg PO QPM tablet 05/27/17 Disposition Discussed With: Patient, Family
[2017-07-15] MEDS ORDERED: XOPENEX 1.25 MG NEB STA (18:59)
[2017-07-15] MEDS ORDERED: PULMICORT 0.5 MG/2 ML NEB STA (18:59)
[2017-07-15] MEDS ORDERED: SOLU-MEDROL 125 MG IM STA (19:09)
[2017-07-15] MEDS ORDERED: ROCEPHIN 1 GM in SODIUM CHLORIDE 50 ML IV STA (19:09)
[2017-07-15] MEDS ORDERED: ZITHROMAX PO STA (19:09)
--- NOTE | 2017-07-15 19:14 | DI ---
EXAM: Single view chest. HISTORY: Shortness of breath. COMPARISON: 05/24/2017 FINDINGS: A single portable AP view of the chest. There is a left-sided cardiac pacer/defibrillator. LUNGS: The lung volumes are normal. There is minimal atelectasis in the right lung base. The pulmon yoly interstitium is normal. There are no suspicious nodules. MEDIASTINUM: The heart size and pulmonary vasculature are within normal limits. The aorta is tortu ous and calcified. OSSEOUS STRUCTURES: The osseous structures show mild degenerative changes consistent with age. The so ft tissues are unremarkable. IMPRESSION: Right lower lobe atelectasis.
[2017-07-15] MEDS ORDERED: ROCEPHIN ONE (19:16)
[2017-07-15] MEDS ORDERED: SOLU-MEDROL 125 MG IVP STA (19:33)
[2017-07-15] MEDS ORDERED: TYLENOL PO STA (19:38)
[2017-07-15] MEDS ORDERED: DUONEB NEB PRN (21:05)
--- NOTE | 2017-07-15 21:58 | PCM ---
- Chief Complaint Chief Complaint: Shortness of Breath and Chest pain. - History of Present Illness History of Present Illness: 81 yo WM presented to ER around 3-4 pm today via ambulance. The patient is a regular patient of Dr. Ramirez. Last hospital admit 05/24-05/27/17. Similar visit at that time. Reviewed last admit. extermination inspector anticoag, HTN, CHF, CAD, dyslipidemia, SHANTEL on BIPAP, GERD, Anemia, DJD spine, COPD, Chronic tobacco user , AICD in place. He was seen in ER on that date, ABG with pH 7.512 Pco2 42 and P02 69. CXR done. nebs/steroids did not help, was admitted. Labs, rocephin, solumedrol 80 q 8, nebs, I+O and coumadin 4mg daily. He was D/C home and did okay up until the last 3 days. Last OV with Dr. Ramirez in clinic 05/14/17. Note reviewed tonight, H+P from 05/24/17 reviewed tonight. The patient reports 3 days history of SOA worsening, cough, sputum production, MCGRATH and presented to ER worsening via ambulance. He is on regular O2 at home 2L NC, must have BIPAP to sleep and has had difficulty eating due to the breathing worsening. He has worsening COPD, Tobacco abuse, only 4 cigarettes today. He feels that he is having more labored Respirations, more secretions and he called for help and arrived by [facility]. Dr. Ortega in Er called me around 9:30PM with patient arrival via EMS. 02 at home nebs and BipAP not helping and he presented to ER. O2 94% temp 99 and BP 134/60. O2 has stayed relatively stable at 94%. Wheezing crackling and rhonchi/rales. CXR showed ?RLL Atelectasis. History of AICD reviewed, EKG completed and reviewed, cardiac enzymes completed and negative. Labs showed WBC 14.1, Hgb 9.6. Glucose 151. He was given rocephin and azithromycin to start, solumedrol. ABG noted as uncomp resp alk. Patient history: Presented to [facility] 2 22:20 and discussed care with patient. The patient has had chest pain over past 3 days intermittently and over past 1 week off and on as well. He does not think it is his heart. He notes it is mid chest, right shoulder. History of right shoulder arthritis pain at 5/10 all the time in right shoulder. History of falls, last fall 1 week ago. No LOC, did not hit head. He notes he will turn and will then slide down on the wall and sit down. He reports SOA worsening, 4 cig today, 8 cig yesterday trying to get to <10 regularly and ultimately to quit. Moderate respiratory distress, tachypnea w/ RR 24, c/o hunger and eating in the room as I arrived. He reports worse cough, white foamy/frothy sputum, chest pain worse with cough, denies fever so far reported. History of cardiac issues, no firing of AICD. ROS reviewed from ER note and discussed with patient again no fever, +weakness, + SOA, +Mucus production, +Cough, +Orthopnea, +PND, +Wheeze, +SOA, +Sputum production. He has intermittent irregular heart rate and dizziness/ lightheadedness. He was following with Dr. Palacios in [place] for cardiology. Does not know if he has had recent stress test. Exam reviewed from ER note, +R/R/W on pulmonary exam. The patient was admitted to [facility] w/ Tele and ER orders reviewed. Neb in ER was given, solumedrol in ER. He reports it did help some but did not last. No chest pain at present, again this comes and goes. He is eating a meal. I reviewed his outpatient chart and it looks as if he has history of DM 2 with a1c 6.8 2014. I will reorder a1C today. His pneumonia vaccines are up to date, flu vaccines are up to date. Sodium/potassium and renal function are okay. Mild anemia at 9.5. Has never required ventilator support. Prolonged tobacco history. Chest pain rated currently at 2/10 pressure like only with cough or deep breath. At rest no chest pain. As noted above 3/3 cardinal features of COPD exacerbation. Last event 3-4 weeks ago stayed 3-4 days in house. Vital Signs - 24 hr 07/15/17 07/15/17 07/15/17 18:14 18:37 21:25 Temperature 99.9 F H Pulse Rate 98 H Respiratory 24 Rate Blood Pressure 134/60 O2 Sat by Pulse 94 L 94 L 94 L Oximetry 07/15/17 07/15/17 22:54 23:03 Temperature 98.0 F 99.9 F H Pulse Rate 94 H 98 H Respiratory 20 24 Rate Blood Pressure 134/60 O2 Sat by Pulse 93 L 94 L Oximetry Reviewed note from EMS called to patient home upon arrival sitting outside SOA. History as above wheezing prominently, skin warm/dry/normal. Transported to [facility]. - Review of Systems Constitutional: chills, weakness, sweats, fatigue, loss of appetite. No: fever Eyes: other (glasses). No: blurred vision, double-vision, discharge, redness, photophobia Ears: hearing loss (chronic). No: pain, bleeding, drainage, ringing Nose: congestion, discharge (clear). No: bleeding Throat: pain. No: swelling, voice change Mouth: No: bleeding, pain, swelling Respiratory: cough, shortness of air, wheeze, pain with breathing. No: hemoptysis Cardiovascular: chest pain (left chest with cough and with deep breath. ), PND, orthopnea. No: left arm pain, diaphoresis, edema, palpitations, syncope Gastrointestinal: nausea. No: abdominal pain, vomiting, diarrhea, melena, hematemesis, hematochezia, dysphagia, constipation Genitourinary: No: dysuria, hematuria, frequency, incontinence, flank pain Neurological: dizziness, weakness, problems with walking. No: headache, seizure , numbness, speech difficulty, tremor, fainting Musculoskeletal: pain, swelling in joints Skin: bruising (from blood thinner, scattered superficial ecchymosis. ), other ( Cut left great toenail too short and has wound. +Onychomycosis. ). No: rash, pruritus, lacerations, wounds Hematology: easy bruising. No: easy bleeding, swollen glands Endocrine: weight changes (weight loss per patient. ) Psychiatric: No: depression, anxiety, sleeplessness, hopelessness, suicidal, hallucinations, other Habits: tobacco use. No: substance use, alcohol use - Past Medical History Past Medical History: Arthritis. Chest pain. Chronic obstructive pulmonary disease. Congestive heart failure. Diabetes mellitus. Gastroesophageal reflux disease. Hyperlipidemia. Hypertension. Myocardial infarction. Shortness of breath (Defib 2010) - Past Surgical History Past Surgical History: Appendectomy. Dental EXtraction. Prostatectomy. Other (defib) - Allergies Allergies/Adverse Reactions: Allergies Allergy/AdvReac Type Severity Reaction Status Date / Time No Known Allergies Allergy Verified 07/15/17 18:25 - Medications Medications: Medications Generic Name Dose Route Start Last Admin Trade Name Freq PRN Reason Stop Dose Admin Albuterol/Ipratropium 1 vial 07/15/17 21:05 Duoneb NEB RTQ6H PRN Wheezing Sodium Chloride 1 syr 07/15/17 18:59 07/15/17 19:24 Saline Flush IVF 1 syr PRN PRN Administration To flush IV Med LIst reviewed with outpatient chart. [Hydrocodon-Acetaminophen 5-325] 1 Tab Tab No Conflict Check 1 Tab PO BID PRN # 30 TABLET Ref 0 Prov: BEJGUM-RHC,BRYAN 05/04/17 Escitalopram Oxalate 10 Mg Tablet 10 Mg PO DAILY #30 TABLET Ref 0 Prov: BEJGUM-RHC,BRYAN 05/04/17 Hydroxyzine Hcl 10 Mg Tablet 20 Mg PO BEDTIME Reported 04/30/17 Ropinirole Hcl 0.5 Mg Tablet 0.75 Mg PO BEDTIME Reported 04/07/17 Furosemide 20 Mg Tablet 20 Mg PO d Reported 04/07/17 Lisinopril 10 Mg Tablet 10 Mg PO 1/2 tab daily Reported 04/07/17 Warfarin Sodium 2 Mg Tablet 2 Mg PO SAt. SUN, Antonietta. Thur Reported 04/07/17 Warfarin Sodium 4 Mg Tablet 4 Mg PO Mon, Wed and Fri Reported 04/07/17 Propafenone Hcl 225 Mg Tablet 225 Mg PO Q8HR Reported 04/07/17 Metoprolol Tartrate 50 Mg Tablet 50 Mg PO 1/2 tab BID Reported 04/07/17 Hydroxyzine Hcl 10 Mg Tablet 10 Mg PO TID Reported 04/07/17 Albuterol Sulfate (Proventil Hfa) 6.7 Gm Hfa.aer.ad 6.7 Gm IH QID Reported 04/07/17 Spironolactone 25 Mg Tablet 25 Mg PO DAILY Reported 09/13/12 Pravastatin Sodium 10 Mg Tablet 10 Mg PO DAILY Reported 09/13/12 [Prilosec] [address] Randall Conflict Check 20 Mg PO DAILY Reported 09/13/12 Tamsulosin Hcl 0.4 Mg Cap.Er.24h 0.4 Mg PO DAILY Reported 03/28/14 Docusate Sodium 100 Mg Capsule 100 Mg PO BID Reported 03/28/14 Cholecalciferol (Vitamin D3) (Vitamin D) 1,000 Unit Tablet 1000 Unit PO DAILY Reported 03/28/14 Carbidopa/Levodopa (Carbidopa-Levo 25-100 Mg Odt) 1 Each Tab.Rapdis 25 Mg PO TID Reported 03/28/14 - Family History Past Family History: 1 Kunal lives in [place], he did not know any history about her. Parents with heart related disease. Grandparents cardiac disease. 2 children son and daughter both with obesity. - Social History Past Social History: Tobacco Use. Smoking status Current every day smoker. Smoking pack/year history 25-50 pack years. Quit status Considering quitting. Alcohol Use. Alcohol intake None. Substance Use. Substance abuse Denies use. Mara/Amish. Faith preference Anabaptism - Vital Signs Temperature: 99.9 F Pulse Rate: 98 Respiratory Rate: 24 Blood Pressure: 134/60 O2 Sat by Pulse Oximetry: 94 - Body Composition Height: 5 ft 10 in Weight: 143 lb 15.39 oz Body Mass Index (BMI): 20.6 - Physical Examination HEENT: Constitutional: Appearance-Respiratory distress, Consistent with stated age, older gentle. Orientation- Oriented x 3, alert Posture-Not doubled over. Gait- Slow pace, wide based, good arm swing, using cane. . Build and Nutrition-Well developed and well nourished. normal BMI General- Patient is pleasant and cooperative with the interview and exam. Talks in full sentences. Integumentary: General-Scattered ecchymosis bilateral UE and LE. Left Great toe with self injured nail cutting with abrasion. Care to the toe will be implemented. Palpation- Normal skin moisture/turgor. Skin is warm to touch, appropriate. Capillary refill is normal bilateral Upper and lower extremity. Head/Neck: Head- normocephalic and atraumatic. Neck- without visible/palpable lumps or pulsations. Palpation- No bony tenderness about head/neck along frontal, occipital, temporal, parietal, mastoid, jawline, zygoma, orbit or any other location.~ NO temporal artery tenderness. No TMJ tenderness. Neck Supple. Thyroid-No thyromegaly, no nodules Eye: Bilaterally PERRLA, EOMI. No discharge. Upper and lower eyelids are normal. Sclera/conjunctiva normal without discharge. Cornea is normal and clear. Lens is normal. Eyeball appears normal. No ciliary flushing, no conjunctival injection. +GLASSES. ENMT: Pinna- normal without tenderness or erythema. External auditory canal Left- normal without erythema or discharge, no excessive cerumen. External auditory canal Right-normal without erythema or discharge, no excessive cerumen. TM left- Santiago/pearly, normal light reflex and anatomy TM Right- Santiago/ pearly, normal light reflex and anatomy Hearing Assessment-normal to conversational speech. Nose and sinus- No sinus tenderness along frontal/ maxillary region. External appearance normal and midline. Nares- bilateral quiet airflow, no discharge. Nasal mucosa- No bleeding noted and no ulcerations observed. Erythematous Turbinates boggy. Lips- normal color, moist without cracks/lesions Oral Cavity/Palate- hard/soft palate intact without lesions, oral mucosa erythematous and moist. Dentition assessed and discussed appropriate oral care. Tongue normal midline. Oropharynx- no pharyngeal erythema, Uvula midline. No post nasal drip. No exudate. Salivary glands- Non tender to palpation CHEST/LUNG: Inspection- symmetric chest wall no pectus deformity. Normal effort , no distress, no use of accessory muscles. Palpation- nontender sternum, ribline. No abnormal pulsations. Auscultation- Breath sounds diminished throughout all lung wetzel.decreased tracheal sounds,decreased bronchial sounds overlying sternum, Bronchovessicular sounds decreased between scapulae posteriorly, Decreasedl vessicular breath sounds heard throughout periphery. Lungs are coarse, rales throughout, R>>L lower lobes posteriorly. Adventitious sounds- Scattered wheezes, +rales, +rhonchi. CARDIOVASCULAR: Jugular vein- no pulsations. Palpation/Percussion- Inferiorly displaced PMI, no palpable thrill Auscultation- Distant heart sounds. AICD left chest. No palpable/reproducible chest wall pain. III/ systolic murmur did not appreciate radiation. ABDOMEN: Inspection- normal and no visible pulsations. Normal contour. Auscultation- Bowel sounds normal, no abdominal bruits. Palpation/Percussion- soft, non-tender, no rebound tenderness, no rigidity (guarding), no jar tenderness, no masses. Liver-no hepatomegaly, Spleen no splenomegaly, Hernias - none. Rectal not examined. Peripheral Vascular: Upper extremity Left- Normal temperature with pink nailbeds and no ulcerations. Upper extremity Right- Normal temperature with pink nailbeds and no ulcerations. Scattered ecchymoses bilateral forearms and anterior shins. Lower extremity- Normal temperature with pink nailbeds and no ulcerations. DP pulses 2+ bilaterally. Pedal hair intact. Normal capillary refill. Edema- No edema. Musculoskeletal: Generalized-No generalized swelling or edema of extremities, no digital clubbing or cyanosis, neurovascularly intact all four extremities. Upper extremity- Symmetrical posture. No visible deformity. Normal sensation along medial and lateral upper extremity proximally and distally.no tendernesslateral/medial epicondyle. Bond Clerk 5/5 and strength 5/5 bilateral UE.~ Elbow palpated, no tenderness overlying olecranon.~ Normal supination, pronation to active/passive ROM and to resisted rotation. Bicep insertion/ tricep insertion appear normal without obvious pathology. Rotator cuff evaluated and intact. Normal wrist ROM bilaterally. Normal hand movement, intrinsic muscles of hands normal. No tenderness to palpation of hands/wrists/ elbows. Lower extremity- Hip: Not tender to palpation, no pain, no swelling, edema or erythema of surrounding tissue, normal strength and tone. Normal appearing hip ROM bilaterally without pain. Knee: Knee ROM normal. No tenderness overlying trochanters, no tenderness about patella, quad tendon, patellar tendon. No tenderness at tibial tuberosity. Ankle: normal ROM not tender to palpation along medial/lateral malleolus. Foot: Normal movement of toes, no tenderness bilateral feet/toes. Normal foot type. +Onychomycosis. Spine/Ribs- No deformities, masses or tenderness, no known fractures, normal strength, Normal ROM. Neurological: General- Moves all 4 extremities symmetrically. Symmetrical face and body posture. Cranial nerves- individually evaluated II-XII and intact. PERRLA, Normal EOMI, visual/special senses appear intact, Face is symmetrical and normal sensation/movement, normal tongue, normal strength/posture of neck musculature. Reflexes- intact with DTR 2+ patellar, Achilles, bicep, brachial, tricep. Strength- 5/5 bilateral UE and LE. Soft touch- intact bilateral UE and LE. Temperature sensation- intact bilateral UE and LE. Neuropsych: Oriented- Person, place, time. (AAOx3), Mood/affect- normal and congruent. Able to articulate well. Speech-Normal speech, normal rate, normal tone, normal use of language, volume and coherence. Thought content- normal with ability to perform basic computations and apply abstract thought/reason. Associations- intact, no SI/HI, no hallucinations, delusions, obsessions. Judgment/insight- Appropriate. Memory-Recall intact, remote and recent memory intact. Knowledge- Age appropriate fund of knowledge, concentration and attention span normal. Lymphatic: Head/Neck- normal size and non tender to palpation. Axillary- normal size and non tender to palpation. Femoral and Inguinal- normal size and non tender to palpation. - Lab/Tests/Diagnostic Imaging Lab/Tests/Diagnostic Imaging: Laboratory Last Values WBC 14.11 K/ul (4.2-10.2) H 07/15/17 19:18 RBC 3.52 10^6/ul (4.70-6.10) L 07/15/17 19:18 Hgb 9.6 g/dl (14.0-18.0) L 07/15/17 19:18 Hct 30.2 % (42.0-52.0) L 07/15/17 19:18 MCV 85.8 fl (80.0-94.0) 07/15/17 19:18 MCH 27.3 pg (27.0-31.0) 07/15/17 19:18 MCHC 31.8 (31.8-35.4) 07/15/17 19:18 RDW Coeff of Salomon 15.7 % (11.6-14.8) H 07/15/17 19:18 Plt Count 164 10^3/uL (140-440) 07/15/17 19:18 Immature Gran % (Auto) 0.4 % (0.0-5.0) 07/15/17 19:18 Neut % (Auto) 76.6 07/15/17 19:18 Lymph % (Auto) 11.4 (10.0-50.0) 07/15/17 19:18 [place] % (Auto) 9.8 (0-10) 07/15/17 19:18 Eos % (Auto) 1.4 % (0.0-7.0) 07/15/17 19:18 Baso % (Auto) 0.4 % (0.0-3.0) 07/15/17:18 Immature Gran # (Auto) 0.1 (0.0-1.0) 07/15/17 19:18 Neut # (Auto) 10.8 K/ul (2.0-6.9) H 07/15/17 19:18 Lymph # (Auto) 1.6 K/uL (0.60-3.4) 07/15/17 19:18 [place] # (Auto) 1.4 K/uL (0.4-2.0) 07/15/17 19:18 Eos # (Auto) 0.2 K/ul (0.0-0.7) 07/15/17 19:18 Baso # (Auto) 0.1 K/uL (0-0.2) 07/15/17 19:18 ESR 37 mm/hr (0-15) H 07/15/17 19:18 Puncture Site Rb 07/15/17 18:58 O2 Saturation 99.0 % (95-100) 07/15/17 18:58 ABG pH 7.603 (7.35-7.45) H* 07/15/17 18:58 ABG pCO2 30.6 mmHg (35-45) L 07/15/17 18:58 ABG pO2 97.0 mmHg (85-100) 07/15/17 18:58 ABG HCO3 30.3 (22.0-26.0) H 07/15/17 18:58 ABG Total CO2 31 (22.0-28.0) H 07/15/17 18:58 ABG Base Excess 9 (-2.0-2.0) H 07/15/17 18:58 Bryson Test + 07/15/17 18:58 O2 Delivery Device [facility] 07/15/17 18:58 Oxygen Liter Flow 2.00 07/15/17 18:58 FiO2 % 28.0 % 07/15/17 18:58 Sodium 139 mmol/L (136-145) 07/15/17 19:18 Potassium 4.2 mmol/L (3.5-5.1) 07/15/17 19:18 Chloride 100 mmol/L (98-107) 07/15/17 19:18 Carbon Dioxide 28 mmol/L (23-31) 07/15/17 19:18 Anion Gap 15.2 07/15/17 19:18 BUN 22 mg/dL (7-18) H 07/15/17 19:18 Creatinine 1.03 mg/dL (0.60-1.10) 07/15/17 19:18 Estimated GFR (MDRD) 69.00 mL/min 07/15/17 19:18 BUN/Creatinine Ratio 21.35 07/15/17 19:18 Glucose 151 mg/dL (82-115) H 07/15/17 19:18 Lactic Acid 11.7 mg/dL (4.5-19.8) 07/15/17 19:18 Calcium 9.4 mg/dL (8.2-10.2) 07/15/17 19:18 Total Bilirubin 0.3 mg/dL (0.00-1.20) 07/15/17 19:18 AST 15 U/L (15-37) 07/15/17 19:18 ALT 6 U/L (12-78) L 07/15/17 19:18 Alkaline Phosphatase 88 U/L (56-119) 07/15/17 19:18 Troponin I 0.0150 ng/ml (0.0000-0.4000) 07/15/17 19:18 B-Natriuretic Peptide 55 pg/mL (0-100) 07/15/17 19:18 Total Protein 7.2 g/dL (5.8-8.1) 07/15/17 19:18 Albumin 3.4 g/dL (3.4-5.0) 07/15/17 19:18 Globulin 3.8 07/15/17 19:18 Albumin/Globulin Ratio 0.89 07/15/17 19:18 Procalcitonin < 0.05 ng/mL (<0.05) 07/15/17 19:18 Urine Color Yellow (YELLOW) 07/15/17 19:08 Urine Clarity Clear (CLEAR) 07/15/17 19:08 Urine pH 7.0 (5-9) 07/15/17 19:08 Ur Specific [place] 1.020 (1.005-1.030) 07/15/17 19:08 Urine Protein Negative (NEGATIVE) 07/15/17 19:08 Urine Glucose (UA) Negative (NEGATIVE) 07/15/17 19:08 Urine Ketones Negative (NEGATIVE) 07/15/17 19:08 Urine Blood Negative (NEGATIVE) 07/15/17 19: Urine Nitrite Negative (NEGATIVE) 07/15/17 19:08 Urine Bilirubin Negative (NEGATIVE) 07/15/17 19:08 Urine Urobilinogen 0.2 (0.2) 07/15/17 19:08 Ur Leukocyte Esterase Negative (NEGATIVE) 07/15/17 19:08 Influ A Molecular Assay Negative by naat (NEGATIVE) 07/15/17 19:08 Influ B Molecular Assay Negative by naat (NEGATIVE) 07/15/17 19:08 ABG: Acute (uncompensated) primary respiratory alkalosis, with metabolic alkalosis pH > 7.47 and HCO3 > 22, for acute (uncompensated) pH < 7.42 and HCO3 < 20, for chronic (compensated) expected pH = 7.61 expected CO2 = 32 expected HCO3- = 30 CXR RLL Atelectasis. No e/o pneumonia at this time. EKG: Electronic ventricular pacemaker with regular pacer spikes. - Assessment (1) SIRS (systemic inflammatory response syndrome) Status: Acute Code(s): R65.10 - SIRS OF NON-INFECTIOUS ORIGIN W/O ACUTE ORGAN DYSFUNCTION SNOMED Code(s): 149045703 (2) COPD exacerbation Status: Acute Code(s): J44.1 - CHRONIC OBSTRUCTIVE PULMONARY DISEASE W (ACUTE ) EXACERBATION SNOMED Code(s): 968784048 (3) Chronic systolic CHF (congestive heart failure) Status: Acute Code(s): I50.22 - CHRONIC SYSTOLIC (CONGESTIVE) HEART FAILURE SNOMED Code(s): 714831013 (4) Obstructive sleep apnea Status: Acute Code(s): G47.33 - OBSTRUCTIVE SLEEP APNEA (ADULT) (PEDIATRIC) SNOMED Code(s): 28312538 (5) Respiratory alkalosis Status: Acute Code(s): E87.3 - ALKALOSIS SNOMED Code(s): 872952232 (6) Pneumonia Status: Acute Code(s): J18.9 - PNEUMONIA, UNSPECIFIED ORGANISM SNOMED Code(s ): 541900389 (7) Tobacco abuse Status: Acute Code(s): Z72.0 - TOBACCO USE SNOMED Code(s): 95036434 (8) Chest pain Status: Acute Code(s): R07.9 - CHEST PAIN, UNSPECIFIED SNOMED Code(s): 20658056 (9) Hyperglycemia Status: Acute Code(s): R73.9 - HYPERGLYCEMIA, UNSPECIFIED SNOMED Code(s): 85320382 (10) Hard of hearing Status: Acute Code(s): H91.90 - UNSPECIFIED HEARING LOSS, UNSPECIFIED EAR SNOMED Code(s): 02522432 (11) Leukocytosis Status: Acute Code(s): D72.829 - ELEVATED WHITE BLOOD CELL COUNT, UNSPECIFIED SNOMED Code(s): 157514780 (12) Anemia Status: Acute Code(s): D64.9 - ANEMIA, UNSPECIFIED SNOMED Code(s): 344986211 Qualifiers: Vitamin B12 deficiency anemia type: other dietary B12 deficiency - Plan Plan: SIRS with possible Sepsis/Pneumonia: RLL atelectasis by CXR. Curb-65 score of 2 points supports 6.8% 30 day mortality representing at least brief in patient admission/stay. He is afebrile, but borderline, RR is tachypneic and his ABG supports non compensated acute respiratory alkalosis with metabolic alkalosis. Heckerling Rule reviewed and he has 3 points (Crackles, Decreased breath sounds and absence of asthma) with 1.6 LR ratio and 22% post test probability of pneumonia. CXR with atelectasis. I agree w/ ER assessment and rocephin/ azithromycin is reasonable. Lactate was okay at 11.7, procalcitonin was negative. - Duoneb QID - Xopenex 1.25 q6 hours - Pulmicort 0.5 BID - Solumedrol as ordered COPD Exacerbation: Suspect COPD exacerbation w/ pneumonia vs atelectasis by history and exam. We reviewed smoking history. Smoking cessation and tobacco avoidance highly encouraged today (both active and passive). Gold defines exacerbation of COPD as acute event leading to worsening of respiratory symptoms with 3 cardinal features: increased cough freq/severity, sputum production volume/quality, worsened Dyspnea. Risk factors for exacerbations include advancing age, duration of COPD, history of abx use, prev hospitalization within past 12 months, mucus production, comorbidities to include heart disease, CHF, DM, and exposures. Respiratory infections are the most likely trigger in up to 70% of cases to include viral processes such as Rhino (warmer months), gallagher, adeno, parainfluenza (cooler months), allergic process, viral/bacterial pneumonia. Studies have shown benefit to bronchodilators (grade 1B) and show reduced time to resolution of cough. Anticholinergic agents are often used in combination as studies show enhanced bronchodilation beyond that seen by either agent alone. Caution advised if any history of BPH or similar in male patients. Systemic glucocorticoids have been shown to have beneficial effect. Recommendations include dosing steroid equivalent to prednisone 40 mg daily x 5 days. Inhaled GC are of minimal benefit in acute exacerbation, but should not be stopped. We discussed that studies suggest use of abx is controversial. These are recommended to be avoided for simple bronchitis. The patient/family voiced understanding. If abx not used initially and patient has limited improvement or worsening over next week the patient/family can contact clinic to consider starting abx. Common abx include doxycycline, FQ, 3rd gen Cephalosporin with or without macrolide. Discussed pros and cons of steroid use both injectible and oral forms. Offered trial of nebulizer in office today. Discussed home use of inhaler and provided education on inhaler usage today. F/U in 1-2 weeks PRN if not improving. Role of alpha 1 antitrypsin discussed with diagnosis. Yearly spirometry encouraged. Would like spirometry in 1-2 months if not done within past 12 months. Tobacco avoidance discussed specifically Reviewed LAMA, LABA, GC, GILMAR agents. - Patient and respiratory requested xopenex 1.25 q 6 hours - Pulmicort BID. - Incentive spirometry Chest Pain: Chronic issues, AICD in place, not firing. EKG reviewed and he has evidence of paced rhythm. Troponin 1 normal. Repeat troponin. This pain does not sound cardiogenic. On Coumadin. Daily INR. BNP is fine at 55. Protein is okay at 3.4 BUN/Cr are okay as well. Troponin 1 0.0150. - Stress test in am. - Repeat troponin now - Cardiology for stress test only. - Telemetry Tobacco Abuse: Tobacco Cessation discussed today . We reviewed lifestyle choices and discussed quitting. Ready to quit status discussed. The risks and hazards of continued tobacco abuse were discussed with the patient today and total tobacco cessation as recommended. It was clearly and unambiguously explained that continued tobacco usage will adversely affect overall morbidity and mortality of the patient. Patient was informed that tobacco use can lead to numerous cancers, worsening of cardiovascular and pulmonary systems and that lung damage is often permanent and irreversible. I advised the patient to inform me if any further assistance is requested, as we can offer counseling services, nicotine replacement inhaled, patch, lozenge, gum, or prescription medications to include Chantix or Wellbutrin for assistance. I will reassess the interest in tobacco cessation at the next and all subsequent visits. - Nicoderm 14mg patch daily. SHANTEL: Bipap to continue, patient brought this with him. DVT Prophy: Continue Coumadin - Daily INR Diet: ADA 1800 kcal/day. Daily I+O PT to see patient. Hospital admission >75 minutes spent in admission, note review, ER discussion review of labs/radiology. See patient again in the am.
[2017-07-15] MEDS ORDERED: XOPENEX 1.25 MG NEB PRN (23:26)
[2017-07-15] MEDS ORDERED: NORCO 5-325 PO PRN (23:29)
[2017-07-15] MEDS ORDERED: LOPRESSOR PO SCH (23:30)
[2017-07-15] MEDS ORDERED: ZESTRIL PO SCH (23:30)
[2017-07-16] MEDS: DUONEB NEB SCH ×2 (00:35→04:30)
[2017-07-16] MEDS ORDERED: PROPAFENONE HCL 225 MG PO SCH (05:00)
[2017-07-16] MEDS ORDERED: PULMICORT 0.5 MG/2 ML NEB SCH (06:00)
[2017-07-16] MEDS ORDERED: HUMALOG SUBCUT STA (07:07)
--- NOTE | 2017-07-16 07:09 | PCM.PROG ---
Subjective: Mr. Ackerman 81 yr old male was admitted 07/15/17 with COPD exacerbation. ABG showed respiratory alkalosis. Repeat ABG pH 7.603 to 7.391, C02 30.6 to 47.3, Po2 97 to 69, HC03 30.3 to 28.7. Nurses notes reviewed and he did have a period of pain in his legs at 00:47 this am and norco was given. At 1:36 no c/o pain and resting. No pedal edema, cardiac monitoring in place. Labs as listed below showed worsening of hgb, a1c stability, hyperglycemia with glucose check of 233. I had not added insulin to date as his last a1c was 6.8 in 2014 and he can likely tolerate 7-8%. We decided to monitor for am levels. These were elevated and we adjusted for correctional insulin. Telemetry reviewed and discussed with tech/nursing and he continues to have a paced rhythm as seen on EKG. REspiratory has followed patient, he has received nebs as ordered duoneb q 6 and xopenx q 6. Vitals good, remains efebrile, O2 saturations look great. SOA persists, chronic. Used Bipap overnight and was breathing better. Still with chest pain, r/o ACS. No I+O were checked. HE did not have e/o acute CHF exacerbation with normal BNP, despite history of CHF issues. Home meds continued, he did okay overnight. He c/o poor sleep overnight but his leg pain/ RLS was fine, his SHANTEL was okay using home BiPAP. Chest pain is still present but does not seem cardiac. No new ecchymoses. Discussed case with keycase assembler and overnight nursing. Other than c/o sleep issues, continued SOA/mucus/cough and chest pain, his chronic medical problems are fine. I am still worried about his pulmonary status (although vitals look okay). Voids x 2 no measured I +0. Chest pain: left chest not reproducible, intermittent, comes and goes, sharp at times, dull at times. Right shoulder pain. No left shoulder pain/jaw pain. Not worse with meals. No diurnal pattern. REVIEW OF SYMPTOMS: (Positives bolded) General: fatigue, Negative; weight loss, fever, chills, night sweats, appetite loss HEENT: Negative blurry vision, eye pain, eye discharge, dry eyes, decreased vision, sore throat tinnitus, bloody nose, hearing loss, sinus pain/pressure, ear pain/pressure. Respiratory: shortness of breath, cough, wheezing,Negative hemoptysis, pleurisy , Cardiovascular: chest pain, PND, palpitation, edema, orthopnea, syncope, swelling of extremities Gastro: Nausea, vomiting, diarrhea, hematemesis, abdominal pain, constipation Genito: hematuria, dysuria, glycosuria, hesitancy, frequency, incontinence Musckelo: Arthralgia, myalgia (CHRONIC NOT NEW), muscle weakness, joint swelling , NSAID use Skin: rash, pruritis, sores, nail changes, skin thickening, change in wart/mole , itching, rash, new lesions, pruritus, nail changes (Chronic onychomycosis) Neuro: Migraine, numbness, ataxia, tremor, vertigo, weakness (chronic not new) , memory loss, Irritability, dizziness Endocrine: excessive thirst, polyuria, cold intolerance, heat intolerance, goiter Psychiatric: depression, anxiety, anti-depressants, alcohol abuse, drug abuse, insomnia, change in sleep pattern and mood changes, SI/HI Heme/lymph: easy bruising, bleeding gums, blood clots, swollen glands, lymphedema, Allergic/immune: allergic rhinitis, hay fever, asthma, hives Objective: Vitals: T=97.0 F, P=70, R=16, UE=193/64, SFR4=442 General appearance: NAD, conversant Using BIPAP c/o poor sleep. O2 has been good on vitals. Eyes: anicteric sclerae, moist conjunctivae; no lid-lag; PERRLA, EOMI HENT: Atraumatic; oropharynx clear with moist mucous membranes and no mucosal ulcerations; normal hard and soft palate Neck: Trachea midline; normal ROM, supple, no thyromegaly or lymphadenopathy Lungs: Wheezing, coarse sounds throughout, unchanged. Not worse. Talking in full sentences normal respiratory effort and no intercostal retractions. Inspection- symmetric chest wall no pectus deformity. Normal effort, no distress , no use of accessory muscles. Palpation- nontender sternum, ribline. No abnormal pulsations. Auscultation- Breath sounds diminished throughout all lung wetzel.decreased tracheal sounds,decreased bronchial sounds overlying sternum, Bronchovessicular sounds decreased between scapulae posteriorly, Decreasedl vessicular breath sounds heard throughout periphery. Lungs are coarse, rales throughout, R>>L lower lobes posteriorly. Adventitious sounds- Scattered wheezes, +rales, +rhonchi. CV: Paced, murmur II/ no radiation into carotid or axilla. NO gallops no rubs. Abdomen: Soft, non-tender; no masses or HSM. Rovsing negative, no rebound, no guarding. Extremities: No peripheral edema or extremity lymphadenopathy Ecchymoses bilateral UE. Skin: Normal temperature, turgor and texture; no rash, ulcers or subcutaneous nodules. Left great toenail appears fine. Onychomycosis bilateral feet. Bandage applied to left great toe at admit. Psych: Appropriate affect, alert and oriented to person, place and time. pleasant talkative and normal Tele: Paced. H/H Trends 07/15/17 07/16/17 Range/Units 19:18 02:00 Hgb 9.6 L 8.9 L (14.0-18.0) g/dl Hct 30.2 L 28.7 L (42.0-52.0) % Na/K Trends 07/15/17 07/16/17 Range/Units 19:18 02:00 Sodium 139 136 (136-145) mmol/L Potassium 4.2 4.7 (3.5-5.1) mmol/L Laboratory Results WBC 11.46 K/ul (4.2-10.2) H 07/16/17 02:00 RBC 3.33 10^6/ul (4.70-6.10) L 07/16/17 02:00 Hgb 8.9 g/dl (14.0-18.0) L 07/16/17 02:00 Hct 28.7 % (42.0-52.0) L 07/16/17 02:00 MCV 86.2 fl (80.0-94.0) 07/16/17 02:00 MCH 26.7 pg (27.0-31.0) L 07/16/17 02:00 MCHC 31.0 (31.8-35.4) L 07/16/17 02:00 RDW Coeff of Salomon 15.6 % (11.6-14.8) H 07/16/17 02:00 Plt Count 165 10^3/uL (140-440) 07/16/17 02:00 Immature Gran % (Auto) 0.4 % (0.0-5.0) 07/16/17 02:00 Neut % (Auto) 95.4 07/16/17 02:00 Lymph % (Auto) 3.0 (10.0-50.0) L 07/16/17 02:00 Deuel % (Auto) 1.0 (0-10) 07/16/17 02:00 Eos % (Auto) 0.0 % (0.0-7.0) 07/16/17 02:00 Baso % (Auto) 0.2 % (0.0-3.0) 07/16/17 02:00 Immature Gran # (Auto) 0.1 (0.0-1.0) 07/16/17 02:00 Neut # (Auto) 10.9 K/ul (2.0-6.9) H 07/16/17 02:00 Lymph # (Auto) 0.3 K/uL (0.60-3.4) L 07/16/17 02:00 Deuel # (Auto) 0.1 K/uL (0.4-2.0) L 07/16/17 02:00 Eos # (Auto) 0.0 K/ul (0.0-0.7) 07/16/17 02:00 Baso # (Auto) 0.0 K/uL (0-0.2) 07/16/17 02:00 ESR 37 mm/hr (0-15) H 07/15/17 19:18 PT 11.0 SEC (9.3-11.0) 07/16/17 02:00 INR 1.10 SI (0.0-3.9) 07/16/17 02:00 Puncture Site Lb 07/15/17 23:00 O2 Saturation 93.0 % (95-100) L 07/15/17 23:00 ABG pH 7.391 (7.35-7.45) 07/15/17 23:00 ABG pCO2 47.3 mmHg (35-45) H 07/15/17 23:00 ABG pO2 69.0 mmHg (85-100) L 07/15/17 23:00 ABG HCO3 28.7 (22.0-26.0) H 07/15/17 23:00 ABG Total CO2 30 (22.0-28.0) H 07/15/17 23:00 ABG Base Excess 4 (-2.0-2.0) H 07/15/17 23:00 Bryson Test + 07/15/17 23:00 O2 Delivery Device [facility] 07/15/17 23:00 Oxygen Liter Flow 2.00 07/15/17 23:00 FiO2 % 28.0 % 07/15/17 23:00 Sodium 136 mmol/L (136-145) 07/16/17 02:00 Potassium 4.7 mmol/L (3.5-5.1) 07/16/17 02:00 Chloride 99 mmol/L (98-107) 07/16/17 02:00 Carbon Dioxide 26 mmol/L (23-31) 07/16/17 02:00 Anion Gap 15.7 07/16/17 02:00 BUN 28 mg/dL (7-18) H 07/16/17 02:00 Creatinine 1.15 mg/dL (0.60-1.10) H 07/16/17 02:00 Estimated GFR (MDRD) 61.00 mL/min 07/16/17 02:00 BUN/Creatinine Ratio 24.34 07/16/17 02:00 Glucose 233 mg/dL (82-115) H D 07/16/17 02:00 Hemoglobin A1c 6.4 (4.8-6.0) H 07/16/17 02:00 Lactic Acid 11.7 mg/dL (4.5-19.8) 07/15/17 19:18 Calcium 9.3 mg/dL (8.2-10.2) 07/16/17 02:00 Total Bilirubin 0.2 mg/dL (0.00-1.20) 07/16/17 02:00 AST 13 U/L (15-37) L 07/16/17 02:00 ALT 8 U/L (12-78) L 07/16/17 02:00 Alkaline Phosphatase 79 U/L (56-119) 07/16/17 02:00 Troponin I 0.0130 ng/ml (0.0000-0.4000) 07/16/17 02:00 B-Natriuretic Peptide 55 pg/mL (0-100) 07/15/17 19:18 Total Protein 6.6 g/dL (5.8-8.1) 07/16/17 02:00 Albumin 3.1 g/dL (3.4-5.0) L 07/16/17 02:00 Globulin 3.5 07/16/17 02:00 Albumin/Globulin Ratio 0.89 07/16/17 02:00 Procalcitonin < 0.05 ng/mL (<0.05) 07/15/17 19:18 Urine Color Yellow (YELLOW) 07/15/17 19:08 Urine Clarity Clear (CLEAR) 07/15/17 19:08 Urine pH 7.0 (5-9) 07/15/17 19:08 Ur Specific Magnolia 1.020 (1.005-1.030) 07/15/17 19:08 Urine Protein Negative (NEGATIVE) 07/15/17 19:08 Urine Glucose (UA) Negative (NEGATIVE) 07/15/17 19:08 Urine Ketones Negative (NEGATIVE) 07/15/17 19:08 Urine Blood Negative (NEGATIVE) 07/15/17 19:08 Urine Nitrite Negative (NEGATIVE) 07/15/17 19:08 Urine Bilirubin Negative (NEGATIVE) 07/15/17 19:08 Urine Urobilinogen 0.2 (0.2) 07/15/17 19:08 Ur Leukocyte Esterase Negative (NEGATIVE) 07/15/17 19:08 Influ A Molecular Assay Negative by naat (NEGATIVE) 07/15/17 19:08 Influ B Molecular Assay Negative by naat (NEGATIVE) 07/15/17 19:08 Plt stable. WBC improved 14.11 to 11.46 Hgb Worsened 9.6 to 8.9. ABG repeated: Chronic (compensated) primary respiratory acidosis,with metabolic alkalosis pH < 7.34 and HCO3 < 25, for acute (uncompensated) pH > 7.38 and HCO3 > 26, for chronic (compensated) expected pH = 7.41 expected CO2 = 49 expected HCO3- = 28 Imaging: No new imaging since admit. Due for stress test today and to see with cardiology today. (1) SIRS (systemic inflammatory response syndrome) Status: Acute Code(s): R65.10 - SIRS OF NON-INFECTIOUS ORIGIN W/O ACUTE ORGAN DYSFUNCTION SNOMED Code(s): 929996598 (2) COPD exacerbation Status: Acute Code(s): J44.1 - CHRONIC OBSTRUCTIVE PULMONARY DISEASE W (ACUTE ) EXACERBATION SNOMED Code(s): 001122472 (3) Chronic systolic CHF (congestive heart failure) Status: Acute Code(s): I50.22 - CHRONIC SYSTOLIC (CONGESTIVE) HEART FAILURE SNOMED Code(s): 976854717 (4) Obstructive sleep apnea Status: Acute Code(s): G47.33 - OBSTRUCTIVE SLEEP APNEA (ADULT) (PEDIATRIC) SNOMED Code(s): 36778610 (5) Respiratory alkalosis Status: Acute Code(s): E87.3 - ALKALOSIS SNOMED Code(s): 600493766 (6) Pneumonia Status: Acute Code(s): J18.9 - PNEUMONIA, UNSPECIFIED ORGANISM SNOMED Code(s ): 993462365 (7) Tobacco abuse Status: Acute Code(s): Z72.0 - TOBACCO USE SNOMED Code(s): 87446464 (8) Chest pain Status: Acute Code(s): R07.9 - CHEST PAIN, UNSPECIFIED SNOMED Code(s): 18541161 (9) Hyperglycemia Status: Acute Code(s): R73.9 - HYPERGLYCEMIA, UNSPECIFIED SNOMED Code(s): 59788159 (10) Hard of hearing Status: Acute Code(s): H91.90 - UNSPECIFIED HEARING LOSS, UNSPECIFIED EAR SNOMED Code(s): 89376489 (11) Leukocytosis Status: Acute Code(s): D72.829 - ELEVATED WHITE BLOOD CELL COUNT, UNSPECIFIED SNOMED Code(s): 325576108 (12) Anemia Status: Acute Code(s): D64.9 - ANEMIA, UNSPECIFIED SNOMED Code(s): 155782208 (13) Diabetes mellitus with hemoglobin A1c goal of 7.0%-8.0% Status: Acute Code(s): E11.9 - TYPE 2 DIABETES MELLITUS WITHOUT COMPLICATIONS SNOMED Code(s): 598805227 (14) Subtherapeutic international normalized ratio (INR) Status: Acute Code(s): R79.1 - ABNORMAL COAGULATION PROFILE SNOMED Code(s): 303875855 (15) History of atrial fibrillation Status: Acute Code(s): Z86.79 - PERSONAL HISTORY OF OTHER DISEASES OF THE CIRCULATORY SYSTEM SNOMED Code(s): 266629214 Plan: COPD/Pneumonia: Remains afebrile, vitals overnight stable. Used Bipap. Duoneb given at midnight and 4:30. Set for QID. Per respiratory conversation last night DUONEB QID, xopenex q 6 hours PRN, Pulmicort. CBC repeated and negative. He met SIRS/Sepsis criteria initially. Will finish 5 day azithromycin and 5 day total cephalosporin. Patient is talkative and stable but still problematic respiratory problem and chest pain. White blood cell count is improving. - Finish 5 day course of abx. Rocephin today. - Home LAMA/GURPREET to start at discharge. - F/U with PCP and consider triple therapy. - 5 day equivalent steroid. addictions recovery specialist to oral prednisone 40mg starting tomorrow. Oral steroid just as good as IV according to literature. - Consider D/C tomorrow with cefdinir and 3 days of azithromycin 250mg. Chest Pain: Stress Echo today. I will have cardiology evaluate patient today, I still do not think that this is cardiac in nature. ?pleuritic, ?pulmonary as most likely etiology. ABG: Recheck ABG and he has changed from resp alk to resp acid. Bipap overnight. Vitals stable, afebrile. Diabetes 2 a1c goal 7-8%: Hyperglycemia with glucose 233 overnight. Patient had A1C 6.8 as last known from 2014. I ordered this now at 6.4 A1C. I will check a microlabumin. I will also add correctional insulin as listed. Goal in hospital <180 - Humalog correctional QAC/HS accucheck with 180-200 1 unit, 201-250 2 units, 251-300 3 units, 301-350 4 units, 351-400 5 units. If >350 repeat in 2 hours. - ADA diet updated by me, changed from normal diet to ADA - Added Accucheck. - Microalbumin. Anemia: Monitor CBC tomorrow. - CBC tomorrow. SHANTEL: Bipap overnight.. - Continue pt home BiPAP. RLS: Leg pain reported, he was given norco last night. Home meds used. Chronic anticoagulation/Subtherapeutic: Not therapeutic on INR. History of afib. Tele is paced. He has mild murmur inferior border that does not radiate. I will add lovenox and monitor until patient therapeutic on INR. Steroids will increase/decrease INR. Due for stress today. Talked with cardiology team this am, appreciate the consult. -Lovenox 40mg subcut. - Steroids will have + effect on INR. Would recommend daily INR and we can adjust while on abx. He has not missed doses, see PCP next week. Diet: ADA 2000 kcal. Activity: Up with assist. Consult: I appreciate the assistance of the cardiology team. - Cardiology. Disposition: If continues to improve home tomorrow. Activity: Ad elida. More than 35 minutes spent in coordination of care and direct patient care on floor with patient.
[2017-07-16] MEDS ORDERED: LASIX TAB PO SCH (08:00)
[2017-07-16] MEDS ORDERED: ASPIRIN EC PO SCH (08:00)
[2017-07-16] MEDS ORDERED: RYTHMOL PO SCH (08:00)
[2017-07-16] MEDS ORDERED: PRILOSEC PO SCH (08:00)
[2017-07-16] MEDS ORDERED: LEXAPRO PO SCH (09:00)
[2017-07-16] MEDS ORDERED: PROSCAR PO SCH (09:00)
[2017-07-16] MEDS ORDERED: SINEMET 25-100 PO SCH (09:00)
[2017-07-16] MEDS ORDERED: FLOMAX PO SCH (09:00)
[2017-07-16] MEDS ORDERED: CARBIDOPA PO SCH (09:00)
[2017-07-16] MEDS ORDERED: PRAVASTATIN SODIUM 20 MG PO SCH (09:00)
[2017-07-16] MEDS ORDERED: NON-FORMULARY MEDICATION (Omeprazole [Prilosec] 20 MG) PO SCH (09:00)
[2017-07-16] MEDS ORDERED: LOPRESSOR PO SCH (09:00)
[2017-07-16] MEDS ORDERED: MAXITROL OPTH SUSP OP SCH (09:00)
[2017-07-16] MEDS ORDERED: ZESTRIL PO SCH (09:00)
[2017-07-16] MEDS ORDERED: LOVENOX SUBCUT SCH (09:00)
[2017-07-16] MEDS ORDERED: LEVODOPA PO SCH (09:00)
[2017-07-16] MEDS ORDERED: NICODERM 14 MG TD SCH (09:00)
[2017-07-16] MEDS ORDERED: COLACE PO SCH (09:00)
[2017-07-16] MEDS ORDERED: ALDACTONE PO SCH (09:00)
[2017-07-16 10:11] VITALS: BP 134/67; TEMP 98.9
--- NOTE | 2017-07-16 11:57 | CONS ---
DATE OF CONSULTATION: 07/16/17 REASON FOR CONSULTATION: Shortness of breath and chest discomfort HISTORY OF PRESENT ILLNESS: 81 year old white male was hospitalized on 07/15/17 after being seen by ER attending for complaint of being short of breath with minimal exertion with whitish sputum production and also having raw type of feeling on precordial area for past several days off and on unrelated to exertion. The patient is not good historian. He has multiple medical problems. We will try to get all the records from previous hospitalizations. REVIEW OF SYSTEMS: CONSTITUTIONAL: No night sweats. Fatigue and weakness. No fever or chills. HEENT: Eyes: No visual changes. No eye pain. No eye discharge. ENT: No sinus drainage. No epistaxis. No sinus pain. No sore throat. No odynophagia. No ear pain. No congestion. RESPIRATORY: Cough with whitish sputum production, no congestion. No hemoptysis. Shortness of breath. CARDIOVASCULAR: No angina symptoms. No CHF symptoms. No atypical chest pain for CAD. No palpitations. No orthopnea. Raw type of feeling, superficial related to chest wall off and on with cough. No exertional chest discomfort. GASTROINTESTINAL: No abdominal pain. No nausea or vomiting. No diarrhea or constipation. No hematemesis. No hematochezia. GENITOURINARY: No urgency. No frequency. No dysuria. No hematuria. No obstructive symptoms. No discharge. No pain. No significant abnormal bleeding. MUSCULOSKELETAL: No musculoskeletal pain. No joint swelling. Arthritic pain. NEUROLOGICAL: No headache. No neck pain. No syncope. No seizures. No dizziness. PSYCHIATRIC: Not anxious. No depression. No suicidal thoughts. No homicidal thoughts. SKIN: No rash. No lesions. No wounds. ENDOCRINE: No unexplained weight loss. No weight gain. HEMATOLOGIC/LYMPHATIC: No anemia. No purpura. No petechiae. No prolonged or excessive bleeding. No palpable lymph nodes. MEDICATIONS: Omeprazole 20mg PO daily Pravastatin 20mg PO daily Aldactone 25mg PO daily Carbidopa/Levodopa 25mg PO three times a day Tamsulosin 0.4mg daily Proventil four times a day PRN Lasix 20mg Po daily Lisinopril 10mg half tablet PO daily Metoprolol 50mg half tablet twice a day Propafenone 225mg Po 8 hours Lexapro 10mg PO daily Jenners 5-325mg twice a day Prednisone 10mg twice a day Aspirin 81mg Po daily Finasteride 5mg PO daily Coumadin 4mg PO QPM ALLERGIES: None PAST MEDICAL HISTORY/PAST SURGICAL HISTORY(came from patient's own words): History of atrial fibrillation History of defibrillator placement which was done at [facility] The patient was originally seen by Philip and was then referred to [facility] Dilated cardiomyopathy Hypertension Questionable history of Parkinson's Dyslipidemia SOCIAL/PERSONAL/FAMILY HISTORY: The patient is single and lives by himself. The daughter is listed as the next kin to him. Non smoker and no history of alcohol abuse or drug abuse. 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 PHYSICAL EXAMINATION: GENERAL: The patient is oriented to time, place and person. VITAL SIGNS: Temperature 97, pulse 70, respiratory rate 16, blood pressure 107/ 64 and pulse ox 100% with 2 liters. HEENT: Head normocephalic, atraumatic. Eyes: Extraocular muscles are intact. Pupils are equal, round and reactive to light and accommodation. Ears: No lesions. Nose appeared normal. Throat: No exudate or erythema. NECK: Supple. No JVD, no carotid bruit. No lymphadenopathy or thyromegaly. LUNGS: Decreased breath sounds but clear to auscultation. Percussion note normal. Chest symmetrical. HEART: S1, S2, no S3. Grade II to II/ systolic murmurs. No cyanosis or clubbing. No ascites. Pulses: Dorsalis pedis and posterior tibial pulses +1 bilaterally. ABDOMEN: Soft. Nontender. Bowel sounds active. No CVA tenderness. No mass felt. EXTREMITIES: No edema. Full range of motion of all extremities, equal. NEUROLOGIC: No focal deficit. Cranial nerves II through XII are grossly intact. No headache, no double vision or headache. SKIN: Not dry. Intact. Turgor - normal. LYMPHATIC: No palpable lymph nodes/no lymphedema. MUSCULOSKELETAL: Normal joints with no swelling. Muscle tone is normal. LABS: Hgb 8.9, hct 28, glucose 233, BNP 55. ASSESSMENT: 1. Shortness of breath with cough could be exacerbation of COPD 2. Chest discomfort with raw type of feelings, seems to be noncardiac rule out Coronary artery disease and Coronary insufficiency. 3. History of dilated cardiomyopathy with defibrillator placement 4. Hyperglycemia versus diabetes mellitus 5. History of hypertension 6. History of dyslipidemia 7. Questionable Parkinson's 8. Restless leg syndrome 9. Depression RECOMMENDATIONS: 1. Echocardiogram to evaluate LV function and valvular structures 2. Dobutamine stress echo 3. Coronary insufficiency evaluation 4. PFT 5. No evidence of congestion heart failure with BNP being normal also clinically the patient doesn't have any symptoms of CHF 6. Telemetry as ordered 7. Cardiac rehab discussed and advised 8. The patient is on Coumadin. Seems to be that patient probably has history of atrial fibrillation and or severe cardio myopathy with low ejection fraction. The patient doesn't seem to be taking Coumadin and seems to be noncompliant with his medications. 9. Agreed with Lovenox. Thanks for referral. ADDENDUM: The patient was seen on consultation and I was getting ready to do echo and Dobutamine stress echo called the cardiopulmonary department and I was told that patient is getting ready to sign out against medical advise and he does not want any tests to be performed. ANDREW
[2017-07-16] MEDS ORDERED: PRAVACHOL PO SCH (17:00)
[2017-07-16] MEDS ORDERED: COUMADIN PO SCH (17:00)
[2017-07-16] MEDS ORDERED: ROPINIROLE HCL PO SCH (21:00)
[2017-07-16] MEDS ORDERED: REQUIP PO SCH (21:00)
[2017-07-16] MEDS ORDERED: ROCEPHIN 1 GM in SODIUM CHLORIDE 50 ML IV SCH (21:00)
--- NOTE | 2017-07-21 08:31 | CONS ---
Seen for consultation, attending Dr. Fabian, Hospitalist. The patient seen , one time Level 5 MTDD
== END 2017-07-16 11:30 | disposition left against medical advice (07) | DRG 191 ==
LOC: ED 18:11 → SCU 21:24
PROVIDERS: ADMIT Family Medicine; ATTEND Family Medicine
DX: J44.1 Chronic obstructive pulmonary disease with (acute) exacerbation (principal); I50.22 Chronic systolic (congestive) heart failure; G47.33 Obstructive sleep apnea (adult) (pediatric); R06.02 Shortness of breath; F17.210 Nicotine dependence, cigarettes, uncomplicated; Z95.0 Presence of cardiac pacemaker; Z99.81 Dependence on supplemental oxygen; Z79.01 Long term (current) use of anticoagulants; Z79.899 Other long term (current) drug therapy; Z91.81 History of falling; R07.9 Chest pain, unspecified; E11.9 Type 2 diabetes mellitus without complications; I10 Essential (primary) hypertension; E78.5 Hyperlipidemia, unspecified; I48.91 Unspecified atrial fibrillation
CPT/HCPCS: 36415; 80053; 81001; 82803; 82962; 83036; 83605; 83880; 84145; 84484; 85025; 85610; 85651; 87040; 87081; 87502; 93005; 93010; 94150; 94640; 96365; 96375; 99223; 99233; 99284

== ENCOUNTER 2017-08-31 13:42 | Inpatient (IN) ==
[2017-08-31 14:27] VITALS: BMI 21.2
[2017-08-31] MEDS ORDERED: TYLENOL PO PRN (15:08)
[2017-08-31] MEDS ORDERED: ZESTRIL PO SCH (15:30)
[2017-08-31] MEDS ORDERED: LOPRESSOR PO SCH (15:30)
[2017-08-31] MEDS ORDERED: SODIUM CHLORIDE 500 ML IV SCH (15:30)
[2017-08-31] MEDS: NORCO 5-325 PO PRN (16:03)
--- NOTE | 2017-08-31 16:08 | DI ---
EXAM: Chest one view, frontal view only. HISTORY: Shortness of breath. COMPARISON: 07/15/2017. FINDINGS: Left-sided automatic implantable cardiac defibrillator noted. Heart size is normal. Ther e is no vascular congestion. There appears to be consolidation in both lung bases, new from prior st udy. No pleural effusion or pneumothorax identified. Degenerative changes present in the right shou lder. IMPRESSION: Suspect bibasilar pneumonia.
[2017-08-31] MEDS: ROCEPHIN 1 GM in SODIUM CHLORIDE 50 ML IV SCH (16:09)
[2017-08-31] MEDS: SOLU-MEDROL 125 MG IVP SCH ×2 (16:09→22:03)
[2017-08-31] MEDS: DUONEB NEB SCH ×2 (17:17→22:28)
[2017-08-31] MEDS: COUMADIN PO SCH (17:43)
[2017-08-31] MEDS: PROAIR HFA IH SCH ×2 (17:43→21:55)
[2017-08-31] MEDS ORDERED: PROPAFENONE HCL 225 MG PO SCH (21:00)
[2017-08-31] MEDS ORDERED: REQUIP PO SCH (21:00)
[2017-08-31] MEDS ORDERED: LEVODOPA PO SCH (21:00)
[2017-08-31] MEDS ORDERED: CARBIDOPA PO SCH (21:00)
[2017-08-31] MEDS: RYTHMOL PO SCH (21:56)
[2017-08-31] MEDS: LOPRESSOR PO SCH (21:56)
[2017-08-31] MEDS: SINEMET 25-100 PO SCH (21:56)
[2017-09-01] MEDS: DUONEB NEB SCH ×4 (04:50→23:25)
[2017-09-01] MEDS: LASIX TAB PO SCH (05:55)
[2017-09-01] MEDS: PRILOSEC PO SCH (05:55)
[2017-09-01] MEDS: RYTHMOL PO SCH ×3 (05:56→20:22)
[2017-09-01] MEDS: SOLU-MEDROL 125 MG IVP SCH ×3 (06:29→20:21)
[2017-09-01] MEDS ORDERED: REQUIP PO SCH (09:00)
[2017-09-01] MEDS ORDERED: PRAVASTATIN SODIUM 20 MG PO SCH (09:00)
[2017-09-01] MEDS ORDERED: NON-FORMULARY MEDICATION (Omeprazole [Prilosec] 20 MG) PO SCH (09:00)
[2017-09-01] MEDS ORDERED: ROPINIROLE HCL 2 MG PO SCH (09:00)
[2017-09-01] MEDS: ALDACTONE PO SCH (09:04)
[2017-09-01] MEDS: LOPRESSOR PO SCH ×2 (09:04→20:22)
[2017-09-01] MEDS: ROCEPHIN 1 GM in SODIUM CHLORIDE 50 ML IV SCH (09:04)
[2017-09-01] MEDS: LEXAPRO PO SCH (09:05)
[2017-09-01] MEDS: PRAVACHOL PO SCH (09:05)
[2017-09-01] MEDS: PROAIR HFA IH SCH ×4 (09:05→20:20)
[2017-09-01] MEDS: ASPIRIN EC PO SCH (09:05)
[2017-09-01] MEDS: SINEMET 25-100 PO SCH ×3 (09:05→20:23)
[2017-09-01] MEDS: FLOMAX PO SCH (09:05)
[2017-09-01] MEDS: VITAMIN D PO SCH (09:05)
[2017-09-01] MEDS: ZESTRIL PO SCH (09:05)
[2017-09-01] MEDS: PROSCAR PO SCH (09:05)
[2017-09-01] MEDS: NORCO 5-325 PO PRN ×2 (14:59→23:59)
[2017-09-01] MEDS: COUMADIN PO SCH (16:29)
[2017-09-01] MEDS: REQUIP PO SCH (20:22)
[2017-09-02] MEDS: DUONEB NEB SCH ×4 (04:35→20:33)
[2017-09-02] MEDS: SOLU-MEDROL 125 MG IVP SCH ×3 (05:58→20:44)
[2017-09-02] MEDS: LASIX TAB PO SCH (05:59)
[2017-09-02] MEDS: RYTHMOL PO SCH ×3 (05:59→20:38)
[2017-09-02] MEDS: PRILOSEC PO SCH (05:59)
[2017-09-02] MEDS: ROCEPHIN 1 GM in SODIUM CHLORIDE 50 ML IV SCH (08:20)
[2017-09-02] MEDS: ASPIRIN EC PO SCH (08:20)
[2017-09-02] MEDS: PROAIR HFA IH SCH ×4 (08:20→20:37)
[2017-09-02] MEDS: LOPRESSOR PO SCH ×2 (08:21→20:37)
[2017-09-02] MEDS: FLOMAX PO SCH (08:21)
[2017-09-02] MEDS: ZESTRIL PO SCH (08:21)
[2017-09-02] MEDS: PROSCAR PO SCH (08:21)
[2017-09-02] MEDS: VITAMIN D PO SCH (08:21)
[2017-09-02] MEDS: LEXAPRO PO SCH (08:21)
[2017-09-02] MEDS: ALDACTONE PO SCH (08:21)
[2017-09-02] MEDS: SINEMET 25-100 PO SCH ×3 (08:21→20:37)
[2017-09-02] MEDS: PRAVACHOL PO SCH (08:21)
[2017-09-02] MEDS: SODIUM CHLORIDE 1,000 ML IV SCH (15:43)
[2017-09-02] MEDS: NORCO 5-325 PO PRN (16:13)
[2017-09-02] MEDS: COUMADIN PO SCH (17:14)
[2017-09-02] MEDS: MAXIPIME 2 GM in SODIUM CHLORIDE 100 ML IV SCH (20:37)
[2017-09-02] MEDS: REQUIP PO SCH (20:38)
[2017-09-03] MEDS: DUONEB NEB SCH ×4 (04:50→21:30)
[2017-09-03] MEDS: RYTHMOL PO SCH ×3 (05:55→21:20)
[2017-09-03] MEDS: PRILOSEC PO SCH (05:55)
[2017-09-03] MEDS: SOLU-MEDROL 125 MG IVP SCH ×3 (06:15→21:21)
[2017-09-03] MEDS: ASPIRIN EC PO SCH (08:20)
[2017-09-03] MEDS: MAXIPIME 2 GM in SODIUM CHLORIDE 100 ML IV SCH ×2 (08:21→21:22)
[2017-09-03] MEDS: LEXAPRO PO SCH (08:21)
[2017-09-03] MEDS: LOPRESSOR PO SCH ×2 (08:21→21:19)
[2017-09-03] MEDS: FLOMAX PO SCH (08:21)
[2017-09-03] MEDS: PRAVACHOL PO SCH (08:23)
[2017-09-03] MEDS: PROAIR HFA IH SCH ×4 (08:24→21:19)
[2017-09-03] MEDS: PROSCAR PO SCH (08:24)
[2017-09-03] MEDS: SINEMET 25-100 PO SCH ×3 (08:25→21:19)
[2017-09-03] MEDS: VITAMIN D PO SCH (08:25)
--- NOTE | 2017-09-03 11:47 | PN ---
DATE OF SERVICE: 09/02/17 SUBJECTIVE: The patient was admitted with bibasilar pneumonia, acute respiratory failure. Sputum did grow Pseudomonas in the sputum. White count is 21,000 today. PHYSICAL EXAMINATION: V/S: BP 103/56, respiratory rate 20, heart rate 72, temperature 97.8. Saturation 96. HEENT: Normocephalic, atraumatic. Mucosa dry. Pallor positive. No icterus. NECK: Supple. No JVD, no carotid bruit. No lymphadenopathy. LUNGS: Decreased basilar crackles. No rales or rhonchi. HEART: S1, S2 normal. No S3. No murmur, gallop or regurgitation. ABDOMEN: Soft, nontender. Bowel sounds active. No rigidity. No rebound or guarding. No CVA tenderness. EXTREMITIES: No cyanosis, clubbing or pedal edema. MUSCULOSKELETAL: No joint swelling. NEUROLOGIC: Awake, alert, oriented times three. No focal deficit. LYMPHATIC: No lymph nodes palpable. SKIN: Intact. LABS: White count 21.30, hemoglobin 3.47, hematocrit 27.9, platelet count 231. Sodium 132, potassium 4.6, chloride 97, bicarb 24, BUN 51, creatinine 1.35, glucose 186. ASSESSMENT: 1. BIBASILAR PNEUMONIA 2. ACUTE ON CHRONIC RENAL FAILURE 3. HYPOXEMIC RESPIRATORY FAILURE 4. CAD 5. CHF 6. ATRIAL FIBRILLATION 7. HYPERTENSION 8. DYSLIPIDEMIA PLAN: 1. Continue Rocephin 2. Duonebs 3. Breathing treatment 4. IV fluids 5. Daily I & O's TIME SPENT: More than 35 minutes MTDD
--- NOTE | 2017-09-03 12:16 | PN ---
DATE OF SERVICE: 09/01/17 SUBJECTIVE: The patient was admitted from the office yesterday and found to be in a hypoxemic respiratory failure with a PO2 of 57. CT of the chest did show bibasilar pneumonia. He is still coughing and congested with shortness of breath with minimal exertion. REVIEW OF SYSTEMS: CONSTITUTIONAL: No fever, no chills. HEENT: Normal. ENDOCRINE: No weight gain, no weight loss. CVS: No angina symptoms. No CHF symptoms. No palpitations. No atypical chest pain for CAD. Shortness of breath. No PND, no orthopnea. RESPIRATORY: Cough and congestion, no hemoptysis. GI: No nausea, no vomiting. No abdominal pain. : No hematuria. No polyuria. MUSCULOSKELETAL: No joint swelling. PSYCHIATRIC: Not anxious. No depression. No suicidal thoughts. No homicidal thoughts. SKIN: Intact. No rash. PHYSICAL EXAMINATION: GENERAL: Cachectic male sitting in the bed in mild respiratory distress. V/S: Blood pressure 104/56, respiratory rate 20, heart rate 73, temperature 98.8 , saturation is 96 on 2 liters. HEENT: Normocephalic, atraumatic. Mucosa dry. Pallor positive. No icterus. NECK: Supple. No JVD, no carotid bruit. No lymphadenopathy. LUNGS: Decreased and hardly any lung sounds are heard. Mild crackles. No rales or rhonchi. HEART: S1, S2 normal. No S3. No murmur, gallop or regurgitation. ABDOMEN: Soft, nontender. Bowel sounds active. No rigidity. No rebound or guarding. No CVA tenderness. EXTREMITIES: No cyanosis, clubbing or pedal edema. MUSCULOSKELETAL: No joint swelling. NEUROLOGIC: Awake, alert, oriented times three. No focal deficit. LYMPHATIC: No lymph nodes palpable. SKIN: Intact. LABS: White count is 18.71, hemoglobin 8.3, hematocrit 26.7, platelet count 205 , sodium 132, potassium 4.7, chloride 98, bicarb 24, BUN 37, creatinine 1.17, glucose 220. ASSESSMENT: 1. CHRONIC OBSTRUCTIVE PULMONARY DISEASE EXACERBATION SECONDARY TO BIBASILAR PNEUMONIA 2. HYPOXEMIC RESPIRATORY FAILURE 3. CORONARY ARTERY DISEASE 4. CONGESTIVE HEART DISEASE 5. HYPERTENSION 6. ATRIAL FIBRILLATION 7. OSTEOARTHRITIS 8. DJD OF THE SPINE 9. RESTLESS LEG SYNDROME 10. SLEEP APNEA ON C-PAP 11. BPH PLAN: 1. Continue the Rocephin 1 gram daily. 2. DuoNebs. 3. Solu-Medrol 80 mg every 8 hours. 4. Daily I & O's. TIME SPENT: More than 35 minutes MTDD
[2017-09-03] MEDS: SODIUM CHLORIDE 1,000 ML IV SCH (16:41)
[2017-09-03] MEDS: COUMADIN PO SCH (16:47)
[2017-09-03] MEDS: REQUIP PO SCH (21:19)
[2017-09-03] MEDS: XANAX PO SCH (21:20)
[2017-09-04] MEDS: NORCO 5-325 PO PRN (00:27)
[2017-09-04] MEDS: DUONEB NEB SCH ×4 (04:46→21:48)
[2017-09-04] MEDS: PRILOSEC PO SCH (06:00)
[2017-09-04] MEDS: RYTHMOL PO SCH ×3 (06:00→20:24)
[2017-09-04] MEDS: SOLU-MEDROL 125 MG IVP SCH ×3 (06:02→21:24)
[2017-09-04] MEDS: PROAIR HFA IH SCH ×4 (08:17→20:23)
[2017-09-04] MEDS: MAXIPIME 2 GM in SODIUM CHLORIDE 100 ML IV SCH ×2 (08:17→20:23)
[2017-09-04] MEDS: LEXAPRO PO SCH (08:18)
[2017-09-04] MEDS: ASPIRIN EC PO SCH (08:18)
[2017-09-04] MEDS: FLOMAX PO SCH (08:18)
[2017-09-04] MEDS: LOPRESSOR PO SCH ×2 (08:19→20:24)
[2017-09-04] MEDS: PROSCAR PO SCH (08:19)
[2017-09-04] MEDS: PRAVACHOL PO SCH (08:19)
[2017-09-04] MEDS: SINEMET 25-100 PO SCH ×3 (08:20→20:24)
[2017-09-04] MEDS: VITAMIN D PO SCH (08:20)
--- NOTE | 2017-09-04 09:29 | CT ---
EXAM: CT abdomen and pelvis without contrast. HISTORY: Abdominal pain. TECHNIQUE: Multi-slice transaxial helical CT. Coronal and sagittal reformatons were performed. COMPARISON: 05/09/2007 FINDINGS: The heart is normal in size. Extensive coronary artery atherosclerosis is present. Pacer leads are p resent within the heart. The filling defects are present within the right lower lobe bronchi. Right lower lobe postobstructive patchy opacities are present. Airway thickening is present within the lo wer lobes. Emphysematous changes of the lungs are present. Evaluation of the solid organs is limited without IV contrast. Spleen is normal in size. The gallbl adder has been removed. Evaluation of biliary dilation is difficult without IV contrast. Probable s imple cyst in the midpole region right kidney measures up to 12 mm in size. No definite evidence of renal calculus or hydronephrosis is seen. The pancreas appears atrophic. The bilateral adrenal gland s appear grossly unremarkable within the confines of this exam. The bowel is not dilated. Ill-defined rounded mass-like density is seen near the distal stomach which measures up to 4.9 x 3.4 cm as seen on axial image 65. Evaluation of the bowel is limited on this st udy. The prostate is mildly enlarged measuring up to 4.9 cm in transverse diameter. Diverticuli are suggested in the colon. Large amount of stool throughout the colon is present. The appendix is not definitively identified. Calcified plaques are present within the abdominal aorta. No evidence of intra-abdominal free air is seen. Advanced multilevel degenerative changes of the lumbar spine are pr esent. The bones appear osteopenic. IMPRESSION: 1. Right lower lobe endobronchial filling defects. This can be seen with aspiration or mucous plugg ing. 2. Right lower lobe postobstructive atelectasis or pneumonia. 3. Airway thickening in the lung bases suggesting bronchitis. 4. Pulmonary emphysema. 5. Ill-defined mass-like density at the distal stomach as detailed above. I am uncertain if this re presents a normal collapsed stomach versus adenopathy or soft tissue mass. A CT of the abdomen with IV and oral contrast would better evaluate versus endoscopy. 6. Colonic diverticulosis. 7. Limited exam without IV and oral contrast. 8. Large amount of stool throughout the colon. Correlate with constipation. 9. Other chronic findings as detailed above.
[2017-09-04] MEDS: SODIUM CHLORIDE 1,000 ML IV SCH (16:39)
[2017-09-04] MEDS: COUMADIN PO SCH (16:40)
[2017-09-04] MEDS: REQUIP PO SCH (20:23)
[2017-09-05] MEDS: NORCO 5-325 PO PRN (00:23)
[2017-09-05] MEDS: XANAX PO SCH ×2 (00:23→20:17)
[2017-09-05] MEDS: SOLU-MEDROL 125 MG IVP SCH ×3 (04:35→20:42)
[2017-09-05] MEDS: RYTHMOL PO SCH ×3 (04:36→20:16)
[2017-09-05] MEDS: DUONEB NEB SCH ×4 (04:36→20:52)
[2017-09-05] MEDS: PRILOSEC PO SCH (05:42)
[2017-09-05] MEDS: PROAIR HFA IH SCH ×4 (08:38→20:16)
[2017-09-05] MEDS: ASPIRIN EC PO SCH (08:39)
[2017-09-05] MEDS: PROSCAR PO SCH (08:39)
[2017-09-05] MEDS: SINEMET 25-100 PO SCH ×3 (08:39→20:17)
[2017-09-05] MEDS: PRAVACHOL PO SCH (08:39)
[2017-09-05] MEDS: FLOMAX PO SCH (08:39)
[2017-09-05] MEDS: LEXAPRO PO SCH (08:40)
[2017-09-05] MEDS: MAXIPIME 2 GM in SODIUM CHLORIDE 100 ML IV SCH ×2 (08:40→20:15)
[2017-09-05] MEDS: VITAMIN D PO SCH (08:40)
[2017-09-05] MEDS: LOPRESSOR PO SCH ×2 (08:40→20:17)
[2017-09-05] MEDS: COUMADIN PO SCH (17:30)
[2017-09-05] MEDS: REQUIP PO SCH (20:17)
[2017-09-06] MEDS: DUONEB NEB SCH ×4 (04:48→20:00)
[2017-09-06] MEDS: RYTHMOL PO SCH ×3 (05:34→20:09)
[2017-09-06] MEDS: PRILOSEC PO SCH (05:34)
[2017-09-06] MEDS: SOLU-MEDROL 125 MG IVP SCH ×3 (06:44→20:07)
[2017-09-06] MEDS: PROAIR HFA IH SCH ×4 (08:28→20:08)
[2017-09-06] MEDS: ASPIRIN EC PO SCH (08:29)
[2017-09-06] MEDS: MAXIPIME 2 GM in SODIUM CHLORIDE 100 ML IV SCH ×2 (08:29→20:13)
[2017-09-06] MEDS: FLOMAX PO SCH (08:29)
[2017-09-06] MEDS: PROSCAR PO SCH (08:30)
[2017-09-06] MEDS: LOPRESSOR PO SCH ×2 (08:30→20:09)
[2017-09-06] MEDS: LEXAPRO PO SCH (08:30)
[2017-09-06] MEDS: PRAVACHOL PO SCH (08:30)
[2017-09-06] MEDS: SINEMET 25-100 PO SCH ×3 (08:31→20:10)
[2017-09-06] MEDS: VITAMIN D PO SCH (08:31)
--- NOTE | 2017-09-06 14:39 | PN ---
DATE OF SERVICE: 09/03/17 SUBJECTIVE: The patient was admitted with bibasilar pneumonia. Still coughing and congested says that he was not able to sleep. Sputum did grow Serratia Marcescens. REVIEW OF SYSTEMS: CONSTITUTIONAL: No fever, no chills. HEENT: Normal. ENDOCRINE: No weight gain, no weight loss. CVS: No angina symptoms. No CHF symptoms. No palpitations. No atypical chest pain for CAD. No shortness of breath. No PND, no orthopnea. RESPIRATORY: No cough, no hemoptysis. GI: No nausea, no vomiting. No abdominal pain. : No hematuria. No polyuria. MUSCULOSKELETAL: No joint swelling. PSYCHIATRIC: Not anxious. No depression. No suicidal thoughts. No homicidal thoughts. SKIN: Intact. No rash. PHYSICAL EXAMINATION: V/S: Blood pressure 113/58, respiratory rate 20, heart rate 72, temperature 97.4 with saturation is 92 on 2 liters. HEENT: Normocephalic, atraumatic. Mucosa dry. Pallor positive. No icterus. NECK: Supple. No JVD, no carotid bruit. No lymphadenopathy. LUNGS: Decreased and basilar crackles. Clear to auscultation. No rales or rhonchi. HEART: S1, S2 normal. No S3. No murmur, gallop or regurgitation. ABDOMEN: Soft, nontender. Bowel sounds active. No rigidity. No rebound or guarding. No CVA tenderness. EXTREMITIES: No cyanosis, clubbing or pedal edema. MUSCULOSKELETAL: No joint swelling. NEUROLOGIC: Awake, alert, oriented times three. No focal deficit. LYMPHATIC: No lymph nodes palpable. SKIN: Intact. LABS: WBC 21.30, hgb 8.7, hct 27.9, plt count 231, sodium 132, potassium 4.6, chloride 96, bicarb 24, BUN 51, creatinine 1.35 and glucose 186. ASSESSMENT: 1. Bibasilar pneumonia 2. Hypoxemic respiratory failure 3. Serratia Marcescens in the sputum 4. CAD 5. CHF 6. Atrial fibrillation 7. Hypertension 8. Insomnia 9. Restless leg syndrome PLAN: 1. Continue the Rocephin 1 gram daily 2. IV fluids 3. Keep the legs elevated 4. Start the Xanax 1 mg at nighttime for the help to sleep 5. Out of bed to chair activity as tolerated 6. PT/INR daily to monitor the Coumadin TIME SPENT: More than 35 minutes MTDD
[2017-09-06] MEDS: COUMADIN PO SCH (16:36)
[2017-09-06] MEDS: XANAX PO SCH (20:09)
[2017-09-06] MEDS: REQUIP PO SCH (20:09)
[2017-09-06] MEDS: NORCO 5-325 PO PRN (20:17)
[2017-09-07] MEDS: SODIUM CHLORIDE 1,000 ML IV SCH ×2 (02:48→14:21)
[2017-09-07] MEDS: SOLU-MEDROL 125 MG IVP SCH ×3 (05:00→22:20)
[2017-09-07] MEDS: DUONEB NEB SCH ×4 (05:25→19:45)
--- NOTE | 2017-09-07 09:24 | PN ---
DATE OF SERVICE: 09/05/17 SUBJECTIVE: Still coughing and congestion wearing the BIPAP helps with breathing. CT of abdomen and pelvis was done yesterday for worsening kidney function and showed no obstructive uropathy, a lot of constipation and there was a small mass that they could not evaluate they are suggesting to get a CT scan with IV contrast. The patient still getting short of breath with minimal exertion otherwise no fever of chills. REVIEW OF SYSTEMS: CONSTITUTIONAL: No fever, no chills. HEENT: Normal. ENDOCRINE: No weight gain, no weight loss. CVS: No angina symptoms. No CHF symptoms. No palpitations. No atypical chest pain for CAD. Shortness of breath. No PND, no orthopnea. RESPIRATORY: No cough, no hemoptysis. GI: No nausea, no vomiting. No abdominal pain. : No hematuria. No polyuria. MUSCULOSKELETAL: No joint swelling. PSYCHIATRIC: Not anxious. No depression. No suicidal thoughts. No homicidal thoughts. SKIN: Intact. No rash. PHYSICAL EXAMINATION: V/S: Blood pressure 125/73, respiratory rate 16, heart rate 69, temperature 97.4 and saturation 98 on CPAP. HEENT: Normocephalic, atraumatic. Mucosa dry. Pallor positive. No icterus. NECK: Supple. No JVD, no carotid bruit. No lymphadenopathy. LUNGS: Decreased and basilar crackles. Clear to auscultation. No rales or rhonchi. HEART: S1, S2 normal. No S3. No murmur, gallop or regurgitation. ABDOMEN: Soft, nontender. Bowel sounds active. No rigidity. No rebound or guarding. No CVA tenderness. EXTREMITIES: No cyanosis, clubbing. 1+ edema. MUSCULOSKELETAL: No joint swelling. NEUROLOGIC: Awake, alert, oriented times three. No focal deficit. LYMPHATIC: No lymph nodes palpable. SKIN: Intact. LABS: WBC 12.06, hgb 8.7, hct 28.6, plt count 219, sodium 135, potassium 4.6, chloride 104, bicarb 25, BUN 51, creatinine 1.17, glucose 186. ASSESSMENT: 1. Bibasilar pneumonia with bronchiectasis, community acquired, Serratia Marcescens positive 2. Acute on chronic renal failure 3. Atrial fibrillation 4. Coronary artery disease 5. CHF 6. Hypertension 7. Dyslipidemia 8. Restless leg syndrome 9.Anemia 10.Sleep apnea on CPAP PLAN: 1. Continue the Rocephin 1 gram daily 2. Will start the patient on the Miralax 3. Iv fluids 4. Coumadin 5. Daily I&O's TIME SPENT: More than 35 minutes MTDD
--- NOTE | 2017-09-07 09:50 | PN ---
DATE OF SERVICE: 09/04/17 SUBJECTIVE: The patient was admitted with the bilateral pneumonia, still was about to sleep some better. Having some right shoulder pain. REVIEW OF SYSTEMS: CONSTITUTIONAL: No fever, no chills. HEENT: Normal. ENDOCRINE: No weight gain, no weight loss. CVS: No angina symptoms. No CHF symptoms. No palpitations. No atypical chest pain for CAD. No shortness of breath. No PND, no orthopnea. RESPIRATORY: Cough and congested but not able to bring any phlegm, no hemoptysis. GI: No nausea, no vomiting. No abdominal pain. : No hematuria. No polyuria. MUSCULOSKELETAL: No joint swelling. PSYCHIATRIC: Not anxious. No depression. No suicidal thoughts. No homicidal thoughts. SKIN: Intact. No rash. PHYSICAL EXAMINATION: V/S: Blood pressure 130/77, respiratory rate 18, heart rate 70, temperature 98.0 and saturation 99 on 2 liters. HEENT: Normocephalic, atraumatic. Mucosa dry. Pallor positive. No icterus. NECK: Supple. No JVD, no carotid bruit. No lymphadenopathy. LUNGS: Decreased and basilar crackles. Clear to auscultation. No rales or rhonchi. HEART: S1, S2 normal. No S3. No murmur, gallop or regurgitation. ABDOMEN: Soft, nontender. Bowel sounds active. No rigidity. No rebound or guarding. No CVA tenderness. EXTREMITIES: No cyanosis, clubbing. 1+ edema in both lower extremities. MUSCULOSKELETAL: No joint swelling. NEUROLOGIC: Awake, alert, oriented times three. No focal deficit. LYMPHATIC: No lymph nodes palpable. SKIN: Intact. LABS: WBC 12.06, hgb 8.7, hct 28.6, plt count 219, sodium 135, potassium 4.6, chloride 104, bicarb 25, BUN 51, creatinine 1.17 ASSESSMENT: 1. Bibasilar pneumonia 2. Acute on chronic renal failure 3. Atrial fibrillation 4. CHF 5. Sleep apnea 6. Restless leg syndrome 7. Osteoarthritis 8. COPD PLAN: 1. Will get CT abdomen and pelvis for worsening kidney function 2. Continue IV fluids 3. Continue antibiotic Rocephin 4. Sputum did grown Serratia Marcescens TIME SPENT: More than 35 minutes MTDD
--- NOTE | 2017-09-07 11:00 | PN ---
DATE OF SERVICE: 09/06/17 SUBJECTIVE: The patient was admitted with bibasilar pneumonia. REVIEW OF SYSTEMS: CONSTITUTIONAL: No fever, no chills. HEENT: Normal. ENDOCRINE: No weight gain, no weight loss. CVS: No angina symptoms. No CHF symptoms. No palpitations. No atypical chest pain for CAD. Shortness of breath with minimal exertion. No PND, no orthopnea. RESPIRATORY: Cough and congestion, no hemoptysis. GI: No nausea, no vomiting. No abdominal pain. : No hematuria. No polyuria. MUSCULOSKELETAL: No joint swelling. PSYCHIATRIC: Not anxious. No depression. No suicidal thoughts. No homicidal thoughts. SKIN: Intact. No rash. PHYSICAL EXAMINATION: V/S: Blood pressure 133/75, respiratory rate 24, heart rate 69, temperature 98.7 with saturation 95 on CPAP. HEENT: Normocephalic, atraumatic. Mucosa dry. Pallor positive. No icterus. NECK: Supple. No JVD, no carotid bruit. No lymphadenopathy. LUNGS: Decreased and basilar crackles. No rales or rhonchi. HEART: S1, S2 normal. No S3. No murmur, gallop or regurgitation. ABDOMEN: Soft, nontender. Bowel sounds active. No rigidity. No rebound or guarding. No CVA tenderness. EXTREMITIES: No cyanosis, clubbing. 1+ edema. MUSCULOSKELETAL: No joint swelling. NEUROLOGIC: Awake, alert, oriented times three. No focal deficit. LYMPHATIC: No lymph nodes palpable. SKIN: Intact. LABS: Sodium 134, potassium 5.0, chloride 103, bicarb 24, BUN 40, creatinine 1.19, glucose 203, WBC 12.06, hgb 8.7, hct 28.6, plt count 219. ASSESSMENT: 1. Bibasilar community acquired pneumonia, Serratia Marcescens 2. COPD exacerbation secondary to the pneumonia 3. History of CHF 4. Hypertension 5. CAD 6. Coronary artery disease 7. Atrial fibrillation on anticoagulation 8. Restless leg syndrome 9. Sleep apnea on CPAP PLAN: 1. Continue to monitor the PT/INR 2. Continue the Coumadin dosage 3. Continue Rocephin 4. Breathing treatment 5. CT scan showed the mass in the stomach will get CT scan with abdomen and pelvis with IV contrast TIME SPENT: More than 35 minutes MTDD
[2017-09-07] MEDS: RYTHMOL PO SCH ×3 (11:26→20:28)
[2017-09-07] MEDS: MAXIPIME 2 GM in SODIUM CHLORIDE 100 ML IV SCH ×2 (11:28→22:35)
[2017-09-07] MEDS: PROAIR HFA IH SCH ×4 (11:30→20:29)
[2017-09-07] MEDS: FLOMAX PO SCH (11:31)
[2017-09-07] MEDS: ASPIRIN EC PO SCH (11:31)
[2017-09-07] MEDS: PROSCAR PO SCH (11:32)
[2017-09-07] MEDS: LOPRESSOR PO SCH ×2 (11:32→20:28)
[2017-09-07] MEDS: PRILOSEC PO SCH (11:32)
[2017-09-07] MEDS: LEXAPRO PO SCH (11:32)
[2017-09-07] MEDS: SINEMET 25-100 PO SCH ×3 (11:33→20:28)
[2017-09-07] MEDS: VITAMIN D PO SCH (11:33)
[2017-09-07] MEDS: PRAVACHOL PO SCH (11:34)
--- NOTE | 2017-09-07 14:45 | CT ---
EXAM: CT Abdomen with contrast. CT Pelvis with contrast. HISTORY: Possible gastric mass. COMPARISON: 09/04/2017. TECHNIQUE: Multiple axial images of the abdomen and pelvis were obtained following intravenous admin istration of 75 mL of Omnipaque 350, low osmolar. Images were reformatted in the sagittal and gallagher l plane. FINDINGS: Endobronchial filling defects and consolidation noted in the right lower lobe. Endobronch ial filling defects seen to a lesser extent in the left lower lobe. Pacemaker leads partially imaged in the heart. Degenerative changes are present in the spine. Gallbladder is absent. The liver, pancreas, spleen, adrenal glands, and kidneys are without acute ab normality. Pancreatic atrophy noted. Right renal cyst is present. There is decreased conspicuity of the distal gastric wall thickening noted previously. There is sugg estion of mild wall thickening of the gastric antrum and pyloric wall. There is no evidence for minesh l obstruction. The appendix is not seen.. Urinary bladder is unremarkable. Small amount ascites note d. No free air detected. No lymphadenopathy identified. Atherosclerotic calcifications are present . IMPRESSION: 1. Decreased distal gastric wall thickening. Mild antral/pyloric wall thickening persists, which is nonspecific. Consider follow-up endoscopy as warranted. 2. Redemonstration of bilateral lower lobe endobronchial filling defects with right lower lobe conso lidation which could be due to pneumonia, mucus plugging or aspiration.
[2017-09-07] MEDS: COUMADIN PO SCH (16:28)
[2017-09-07] MEDS: REQUIP PO SCH (20:27)
[2017-09-07] MEDS: XANAX PO SCH (20:27)
[2017-09-07] MEDS: MUCINEX PO SCH (20:27)
[2017-09-07] MEDS: NORCO 5-325 PO PRN (20:31)
[2017-09-08] MEDS: DUONEB NEB SCH ×3 (05:18→14:46)
[2017-09-08] MEDS: RYTHMOL PO SCH ×2 (05:35→13:25)
[2017-09-08] MEDS: PRILOSEC PO SCH (05:35)
[2017-09-08] MEDS: SOLU-MEDROL 125 MG IVP SCH ×2 (06:00→13:23)
[2017-09-08] MEDS: PRAVACHOL PO SCH (08:45)
[2017-09-08] MEDS: PROAIR HFA IH SCH ×2 (08:45→13:25)
[2017-09-08] MEDS: FLOMAX PO SCH (08:45)
[2017-09-08] MEDS: LOPRESSOR PO SCH (08:46)
[2017-09-08] MEDS: SINEMET 25-100 PO SCH (08:46)
[2017-09-08] MEDS: PROSCAR PO SCH (08:46)
[2017-09-08] MEDS: MUCINEX PO SCH (08:46)
[2017-09-08] MEDS: LEXAPRO PO SCH (08:46)
[2017-09-08] MEDS: VITAMIN D PO SCH (08:46)
[2017-09-08] MEDS: ASPIRIN EC PO SCH (08:46)
[2017-09-08] MEDS: MAXIPIME 2 GM in SODIUM CHLORIDE 100 ML IV SCH (08:47)
--- NOTE | 2017-09-08 09:02 | PN ---
DATE OF SERVICE: 09/07/17 SUBJECTIVE: The patient was admitted with bibasilar pneumonia with Serratia Marcescens organism. The patient is still coughing and congestion and uses BIPAP at night and feels better in the morning time. REVIEW OF SYSTEMS: CONSTITUTIONAL: No fever, no chills. HEENT: Normal. ENDOCRINE: No weight gain, no weight loss. CVS: No angina symptoms. No CHF symptoms. No palpitations. No atypical chest pain for CAD. No shortness of breath. No PND, no orthopnea. RESPIRATORY: Cough, no hemoptysis. GI: No nausea, no vomiting. No abdominal pain. : No hematuria. No polyuria. MUSCULOSKELETAL: No joint swelling. PSYCHIATRIC: Not anxious. No depression. No suicidal thoughts. No homicidal thoughts. SKIN: Intact. No rash. PHYSICAL EXAMINATION: V/S: Blood pressure 131/76, respiratory rate 16, heart rate 78, temperature 98.0 and saturation 90% on 2 liters. HEENT: Normocephalic, atraumatic. Mucosa dry. Pallor positive. No icterus. NECK: Supple. No JVD, no carotid bruit. No lymphadenopathy. LUNGS: Decreased and basilar crackles. Clear to auscultation. No rales or rhonchi. HEART: S1, S2 normal. No S3. No murmur, gallop or regurgitation. ABDOMEN: Soft, nontender. Bowel sounds active. No rigidity. No rebound or guarding. No CVA tenderness. EXTREMITIES: No cyanosis, clubbing. 1+ edema. MUSCULOSKELETAL: No joint swelling. NEUROLOGIC: Awake, alert, oriented times three. No focal deficit. LYMPHATIC: No lymph nodes palpable. SKIN: Intact. LABS: WBC 13.45, hgb 8.9, hct 38.1, plt count 195, sodium 132, potassium 4.2, chloride 105, bicarb 22, BUN 36, creatinine 0.97. ASSESSMENT: 1. Mass like lesion of the CT of abdomen and pelvis, will get CT of abdomen and pelvis with contrast today 2. Bibasilar pneumonia, organism Serratia Marcescens 3. COPD 4. CHF 5. Atrial fibrillation 6. Sleep apnea on CPAP 7. Hypertension 8. Dyslipidemia 9. Osteoarthritis 10.DJD spine 11.Restless leg syndrome PLAN: 1. CT abdomen and pelvis 2. Continue the the Rocephin 3. DUO NEBS 4. Solu-Medrol decrease to 80Q 8 hours 5. Daily I&O's 6. Out of bed to chair activity as tolerated TIME SPENT: More than 35 minutes MTDD
[2017-09-08 11:04] VITALS: BP 138/73; TEMP 98.6
[2017-09-08] MEDS: SODIUM CHLORIDE 1,000 ML IV SCH (12:16)
[2017-09-08] MEDS ORDERED: KAYEXALATE SUSP PO STA (12:36)
[2017-09-08] MEDS ORDERED: KAYEXALATE SUSP ONE (13:09)
[2017-09-08] MEDS ORDERED: OMNICEF PO SCH ×2 (15:00→21:00)
--- NOTE | 2017-09-28 09:57 | DS ---
DATE OF SERVICE: 09/08/17 FINAL DIAGNOSIS: 1. COPD EXACERBATION SECONDARY TO BILATERAL BIBASILAR PNEUMONIA 2. ACUTE ON CHRONIC HEART FAILURE 3. RESTLESS LEG SYNDROME 4. CAD 5. HISTORY OF VA IN 2011 6. ATRIAL FIBRILLATION BY HISTORY - PATIENT STOPPED TAKING COUMADIN. HE AND THE DAUGHTER, WHO IS THE POWER OF TRESTLE MECHANIC (AMY) BOTH KNOW THE RISK OF STROKE BUT DO NOT WANT TO START COUMADIN. 7. DYSLIPIDEMIA 8. GERD 9. ANEMIA 10. ENLARGED PROSTATE 11. OSTEOARTHRITIS, RIGHT SHOULDER AND NECK 12. BORDERLINE DIABETES 13. OBSTRUCTIVE PULMONARY DISEASE - USES A CPAP 14. DEPRESSION 15. HISTORY OF EXPLORATORY LAPAROTOMY AND SURGERY IN 1993 16. PACEMAKER WITH DEFIBRILLATOR 17. APPENDECTOMY 18. BILATERAL CATARACT SURGERY 19. TONSILLECTOMY 20. CURRENT EVERY DAY LIGHT SMOKER DISCHARGE INSTRUCTIONS: Followup appointment with Dr. Ramirez on 09/15/17; keep appointment with Beverley RAMSEY as scheduled. Resume home medication. MEDICATIONS AT DISCHARGE: Proventil Levadopa/Carbidopa Escitalopram Requip Propafenone Aspirin Vitamin D3 Fenesteride Lisinopril Metoprolol Prilosec Pravastatin Aldactone Flomax Omnicef [place] Prednisone NEW PRESCRIPTIONS: Omnicef (Cefdinir) 300 mg one capsule by mouth twice daily for 5 days Prednisone 10 mg one tablet by mouth twice daily with food times 5 days DIET INSTRUCTIONS: Cardiac and Healthy ACTIVITY: As much as tolerated. Get plenty of rest and gradually resume regular activities. DISEASE SPECIFIC EDUCATION: COPD, pneumonia and needing for pneumonia vaccination. Heart failure, salt intake and salt diet discussed. Verbalized understanding. HOSPITAL COURSE: 82-year-old male came to the office with cough and congestion, shortness of breath. Given history of patient's oxygen dependent COPD, the patient was directly admitted to the hospital. White count was 21,000 with left shift. Chest x-ray showed bibasilar pneumonia. He was started on IV antibiotic Rocephin , breathing treatments and Solu-Medrol was given. The patient's CHADS2 VASC score is 3. He refuses to take Coumadin. He use to be on Coumadin but stopped by himself because he did not like the way it made him feel. Rocephin and the rest of the home medications were continued, Levodopa/Carbidopa and Duonebs then started having the white count come down. ABGs done which showed pH 7.44, pc02 45.4, p02 57. BUN and creatinine 37 and 1.17, went up to 51 and 1.17 then gradually came down to 37 and 1.0. The patient was up and about, start walking. Leg edema was present, complaining of more leg pains. Requip was started for the restless leg syndrome which did help him. The patient uses CPAP at night time for sleep apnea, which helps him rest well. Solu-Medrol gradually was tapering. He takes Levodopa/Carbidopa, Parkinson like symptoms. Hospital stay was uneventful as the patient was doing fine and did not have any complications during the hospital stay. CT abdomen showed some kind of radiopaque mass and wanted it with IV contrast which we made it IV contrast and did not show any mass. Bilateral lower lobe endobronchial filling defects and consolidation was seen, mucus plugging, questionable aspiration but did not have any choking episodes during the hospital stay. He was provided with outpatient endoscopy, outpatient consultation with GI for evaluation. SPECIFIC ORDERS: The patient has been sent durable medical equipment (nebulizer, BIPAP and supplies) has been communicated with the rules at the clinic and [facility]. GI consultation for endoscopy and swallowing study as outpatient. TIME SPENT: MORE THAN 65 MINUTES MTDD
== END 2017-09-08 14:52 | disposition home or self-care (01) | DRG 177 ==
LOC: MEDSURG B 13:42
PROVIDERS: ADMIT Emergency Medicine; ATTEND Emergency Medicine
DX: J15.6 Pneumonia due to other Gram-negative bacteria (principal); J96.91 Respiratory failure, unspecified with hypoxia; J44.1 Chronic obstructive pulmonary disease with (acute) exacerbation; N17.9 Acute kidney failure, unspecified; I50.9 Heart failure, unspecified; G25.81 Restless legs syndrome; I25.10 Atherosclerotic heart disease of native coronary artery without angina pectoris; E78.5 Hyperlipidemia, unspecified; K21.9 Gastro-esophageal reflux disease without esophagitis; D64.9 Anemia, unspecified; N40.0 Benign prostatic hyperplasia without lower urinary tract symptoms; M19.211 Secondary osteoarthritis, right shoulder; R73.01 Impaired fasting glucose; F32.9 Major depressive disorder, single episode, unspecified; R60.0 Localized edema; I48.91 Unspecified atrial fibrillation; F51.02 Adjustment insomnia; G47.30 Sleep apnea, unspecified; G47.8 Other sleep disorders; G20 Parkinson's disease; I10 Essential (primary) hypertension; K57.90 Diverticulosis of intestine, part unspecified, without perforation or abscess without bleeding; I25.2 Old myocardial infarction; Z72.0 Tobacco use
CPT/HCPCS: 36415; 80053; 82550; 82803; 84484; 85025; 85610; 87070; 87186; 93005; 93010; 94640; 99223; 99232; 99239; 99309

== ENCOUNTER 2017-10-11 16:29 | Inpatient (IN) ==
[2017-10-11] MEDS ORDERED: LOPRESSOR PO SCH (17:00)
[2017-10-11] MEDS ORDERED: ZESTRIL PO SCH (17:00)
[2017-10-11 17:03] VITALS: BMI 20.5
[2017-10-11] MEDS: DUONEB NEB SCH ×2 (17:53→23:54)
--- NOTE | 2017-10-11 18:35 | CT ---
EXAM: CT of the chest without contrast. HISTORY: Shortness of breath. PROCEDURE: Contiguous axial CT images of the chest without contrast with coronal and sagittal reform ats. FINDINGS: There is a multi lead automatic implantable cardiac defibrillator. The heart is within norm al limits in size. The thoracic aorta is within normal limits in diameter. There are atheroscleroti c calcifications in the thoracic aorta. There are coronary artery calcifications. There are calcifie d mediastinal and hilar lymph nodes. There are secretions in the right lower lobe bronchi. There are emphysematous changes throughout both lungs. There is consolidation in the posterior right lower lobe consistent with pneumonia. There is minimal left basilar atelectasis and/or pneumonia. There is a 3 mm nodule in the lateral left upper lobe. There is biapical scarring. There are degenerative changes in the spine. There is fecal stasis in the colon. The adrenal glands and visualized portion of the liver are normal in appearance. Impression: Right basilar consolidation consistent with pneumonia. Minimal left basilar atelectasis and/or pneumonia. Secretions in the right lower lobe bronchi. 3 mm nodule in the left upper lobe. Recommend follow-up CT in 6 months to confirm stability. Chronic obstructive pulmonary disease. Fecal stasis in the colon.
[2017-10-11] MEDS: SINEMET 25-100 PO SCH (20:18)
[2017-10-11] MEDS: LOPRESSOR PO SCH (20:19)
[2017-10-11] MEDS: SODIUM CHLORIDE 1,000 ML IV SCH (20:35)
[2017-10-11] MEDS ORDERED: REQUIP PO SCH ×2 (21:00)
[2017-10-11] MEDS ORDERED: LEVODOPA PO SCH (21:00)
[2017-10-11] MEDS ORDERED: CARBIDOPA PO SCH (21:00)
[2017-10-11] MEDS ORDERED: PROPAFENONE HCL 225 MG PO SCH (21:00)
[2017-10-11] MEDS: RYTHMOL PO SCH (22:15)
[2017-10-11] MEDS: NORCO 5-325 PO PRN (22:16)
[2017-10-11] MEDS: PROAIR HFA IH SCH (22:23)
[2017-10-12] MEDS: DUONEB NEB SCH ×4 (05:29→22:08)
[2017-10-12] MEDS: RYTHMOL PO SCH ×3 (05:51→20:36)
[2017-10-12] MEDS: PRILOSEC PO SCH (05:52)
[2017-10-12] MEDS ORDERED: KAYEXALATE SUSP PO STA (08:34)
[2017-10-12] MEDS ORDERED: TORADOL IVP STA (08:34)
[2017-10-12] MEDS ORDERED: REQUIP PO SCH (09:00)
[2017-10-12] MEDS ORDERED: PRAVASTATIN SODIUM 20 MG PO SCH (09:00)
[2017-10-12] MEDS ORDERED: ROPINIROLE HCL 2 MG PO SCH (09:00)
[2017-10-12] MEDS ORDERED: NON-FORMULARY MEDICATION (Omeprazole [Prilosec] 20 MG) PO SCH (09:00)
[2017-10-12] MEDS: ROCEPHIN 1 GM in SODIUM CHLORIDE 50 ML IV SCH (09:45)
[2017-10-12] MEDS: ALDACTONE PO SCH (09:46)
[2017-10-12] MEDS: LOPRESSOR PO SCH ×2 (09:47→20:37)
[2017-10-12] MEDS: VITAMIN D PO SCH (09:47)
[2017-10-12] MEDS: LEXAPRO PO SCH (09:47)
[2017-10-12] MEDS: SINEMET 25-100 PO SCH ×3 (09:47→20:37)
[2017-10-12] MEDS: ZESTRIL PO SCH (09:47)
[2017-10-12] MEDS: ASPIRIN EC PO SCH (09:47)
[2017-10-12] MEDS: PRAVACHOL PO SCH (09:48)
[2017-10-12] MEDS: PROSCAR PO SCH (09:48)
[2017-10-12] MEDS: FLOMAX PO SCH (09:48)
[2017-10-12] MEDS: SOLU-MEDROL 125 MG IVP SCH ×3 (09:50→21:15)
[2017-10-12] MEDS: PROAIR HFA IH SCH ×5 (09:50→20:35)
[2017-10-12] MEDS: REQUIP PO SCH (20:35)
[2017-10-12] MEDS: SODIUM CHLORIDE 1,000 ML IV SCH (20:38)
[2017-10-13] MEDS: NORCO 5-325 PO PRN ×2 (00:30→14:45)
[2017-10-13] MEDS: DUONEB NEB SCH ×4 (04:50→23:30)
[2017-10-13] MEDS: SOLU-MEDROL 125 MG IVP SCH ×3 (05:29→21:54)
[2017-10-13] MEDS: RYTHMOL PO SCH ×3 (05:30→21:48)
[2017-10-13] MEDS: PRILOSEC PO SCH (05:30)
[2017-10-13] MEDS: PROAIR HFA IH SCH ×4 (08:26→21:51)
[2017-10-13] MEDS: ROCEPHIN 1 GM in SODIUM CHLORIDE 50 ML IV SCH (08:27)
[2017-10-13] MEDS: LOPRESSOR PO SCH ×2 (08:27→21:49)
[2017-10-13] MEDS: ALDACTONE PO SCH (08:27)
[2017-10-13] MEDS: ASPIRIN EC PO SCH (08:27)
[2017-10-13] MEDS: PROSCAR PO SCH (08:28)
[2017-10-13] MEDS: PRAVACHOL PO SCH (08:28)
[2017-10-13] MEDS: VITAMIN D PO SCH (08:28)
[2017-10-13] MEDS: FLOMAX PO SCH (08:28)
[2017-10-13] MEDS: ZESTRIL PO SCH (08:28)
[2017-10-13] MEDS: SINEMET 25-100 PO SCH ×3 (08:28→21:49)
[2017-10-13] MEDS: LEXAPRO PO SCH (08:28)
[2017-10-13] MEDS ORDERED: LASIX IVP STA (08:43)
[2017-10-13] MEDS: PROTONIX PO SCH ×2 (09:06→16:43)
[2017-10-13] MEDS: SODIUM CHLORIDE 1,000 ML IV SCH (16:46)
[2017-10-13] MEDS: REQUIP PO SCH (21:48)
[2017-10-13] MEDS ORDERED: TORADOL IVP STA (23:02)
[2017-10-14] MEDS: SOLU-MEDROL 125 MG IVP SCH (04:59)
[2017-10-14] MEDS: RYTHMOL PO SCH ×3 (05:00→20:21)
[2017-10-14] MEDS: DUONEB NEB SCH ×4 (05:10→22:50)
[2017-10-14] MEDS: PROTONIX PO SCH ×2 (05:52→16:21)
[2017-10-14] MEDS: PROAIR HFA IH SCH ×4 (08:27→20:21)
[2017-10-14] MEDS: ROCEPHIN 1 GM in SODIUM CHLORIDE 50 ML IV SCH (08:27)
[2017-10-14] MEDS: PRAVACHOL PO SCH (08:28)
[2017-10-14] MEDS: ASPIRIN EC PO SCH (08:28)
[2017-10-14] MEDS: ALDACTONE PO SCH (08:28)
[2017-10-14] MEDS: ZESTRIL PO SCH (08:28)
[2017-10-14] MEDS: SINEMET 25-100 PO SCH ×3 (08:28→20:23)
[2017-10-14] MEDS: LEXAPRO PO SCH (08:28)
[2017-10-14] MEDS: VITAMIN D PO SCH (08:28)
[2017-10-14] MEDS: LOPRESSOR PO SCH ×2 (08:29→20:21)
[2017-10-14] MEDS: PROSCAR PO SCH (08:29)
[2017-10-14] MEDS: FLOMAX PO SCH (08:29)
[2017-10-14] MEDS ORDERED: MILK OF MAGNESIA PO STA (08:32)
--- NOTE | 2017-10-14 13:30 | PN ---
DATE OF SERVICE: 10/13/17 SUBJECTIVE: The patient was admitted with COPD exacerbation, bronchitis and pneumonia. The patient dropped hgb from 9.9 to 8.2. Breathing is some better. Still coughing some. Restless leg is improved with increased medication. REVIEW OF SYSTEMS: CONSTITUTIONAL: No fever, no chills. HEENT: Normal. ENDOCRINE: No weight gain, no weight loss. CVS: No angina symptoms. No CHF symptoms. No palpitations. No atypical chest pain for CAD. No shortness of breath. No PND, no orthopnea. RESPIRATORY: No cough, no hemoptysis. GI: No nausea, no vomiting. No abdominal pain. : No hematuria. No polyuria. MUSCULOSKELETAL: No joint swelling. PSYCHIATRIC: Not anxious. No depression. No suicidal thoughts. No homicidal thoughts. SKIN: Intact. No rash. PHYSICAL EXAMINATION: V/S: Blood pressure 105/54, respiratory rate 14, heart rate 73, temperature 98.5 and saturation 96 on 2liters. HEENT: Normocephalic, atraumatic. Mucosa dry. Pallor positive. No icterus. NECK: Supple. No JVD, no carotid bruit. No lymphadenopathy. LUNGS: Decreased and basilar crackles. Clear to auscultation. No rales or rhonchi. HEART: S1, S2 normal. No S3. No murmur, gallop or regurgitation. ABDOMEN: Soft, nontender. Bowel sounds active. No rigidity. No rebound or guarding. No CVA tenderness. EXTREMITIES: No cyanosis, clubbing. 1+ edema. MUSCULOSKELETAL: No joint swelling. NEUROLOGIC: Awake, alert, oriented times three. No focal deficit. LYMPHATIC: No lymph nodes palpable. SKIN: Intact. LABS: WBC 8.81, hgb 8.2, hct 27.4, plt count 189, sodium 135, potassium 4.5, chloride 101, bicarb 26, BUN 35, creatinine 1.0, chloride 181. ASSESSMENT: 1. COPD exacerbation secondary to the pneumonia 2. Anemia, rule out GI bleed 3. Restless leg syndrome 4. Atrial fibrillation not on Coumadin, the patient refuses to take Coumadin and aware of stroke 5. Acute renal failure which is improved 6. CAD 7. CHF 8. Sleep apnea on CPAP PLAN: 1. Continue Rocephin 1 gram daily 2. Anemia profile 3. H&H 4. Solu-Medrol 5. Daily I&O's 6. Stop the IV fluids. TIME SPENT: More than 35 minutes MTDD
--- NOTE | 2017-10-14 13:39 | PN ---
DATE OF SERVICE: 10/12/17 SUBJECTIVE: 82 year old male hospitalized with COPD exacerbation and bilateral pneumonia. Still having cough and congestion, shortness of breath and restless legs are bothering him. Right shoulder pain. REVIEW OF SYSTEMS: CONSTITUTIONAL: No fever, no chills. HEENT: Normal. ENDOCRINE: No weight gain, no weight loss. CVS: No angina symptoms. No CHF symptoms. No palpitations. No atypical chest pain for CAD. No shortness of breath. No PND, no orthopnea. RESPIRATORY: No cough, no hemoptysis. GI: No nausea, no vomiting. No abdominal pain. : No hematuria. No polyuria. MUSCULOSKELETAL: No joint swelling. PSYCHIATRIC: Not anxious. No depression. No suicidal thoughts. No homicidal thoughts. SKIN: Intact. No rash. PHYSICAL EXAMINATION: V/S: Blood pressure 116/67, respiratory rate 16, heart rate 69, temperature 97.6 with saturation 93% on BIPAP HEENT: Normocephalic, atraumatic. Mucosa dry. Pallor positive. No icterus. NECK: Supple. No JVD, no carotid bruit. No lymphadenopathy. LUNGS: Decreased and basilar crackles. Clear to auscultation. No rales or rhonchi. HEART: S1, S2 normal. No S3. No murmur, gallop or regurgitation. ABDOMEN: Soft, nontender. Bowel sounds active. No rigidity. No rebound or guarding. No CVA tenderness. EXTREMITIES: No cyanosis, clubbing or pedal edema. MUSCULOSKELETAL: No joint swelling. NEUROLOGIC: Awake, alert, oriented times three. No focal deficit. LYMPHATIC: No lymph nodes palpable. SKIN: Intact. LABS: WBC 6.79, hgb 8.5, hct 30.4, plt count 172, sodium 137, potassium 5.1, chloride 101, bicarb 31, BUN 30, creatinine 1.11 and glucose 104. ASSESSMENT: 1. COPD exacerbation secondary to the bilateral pneumonia 2. Hyperkalemia 3. Acute on chronic renal failure 4. CAD 5. Atrial fibrillation not on Coumadin at this time. The patient takes whenever he wants to take otherwise he will not take it. 6. History of permanent pacemaker 7. Sleep apnea on CPAP 8. Restless leg syndrome 9. Osteoarthritis PLAN: 1. Rocephin 1 gram daily 2. Solu-Medrol 80 Q 8 hours 3. DUO NEBS 4. Daily I&O's TIME SPENT: More than 35 minutes MTDShanelle
--- NOTE | 2017-10-14 15:52 | DI ---
Exam: Two views of the chest. Comparison: CT chest performed 10/11/2017. Reason for exam: Right basilar pneumonia. FINDINGS: Operative changes are seen after implanted intracardiac device placement. The cardiac anuja houette is unchanged. Mild patchy airspace opacities are seen in the lung bases. These findings are improved when compared to the previous exam. No pneumothorax or pleural effusion. The imaged osseo us structures appear grossly unremarkable without acute fracture. Impression: 1. Improving basilar pneumonia. 2. No pneumothorax or pleural effusion
[2017-10-14] MEDS: PREDNISONE PO SCH (16:29)
[2017-10-14] MEDS: REQUIP PO SCH (20:23)
[2017-10-15] MEDS: NORCO 5-325 PO PRN ×2 (01:30→09:12)
[2017-10-15] MEDS: DUONEB NEB SCH (05:07)
[2017-10-15] MEDS: RYTHMOL PO SCH (05:31)
[2017-10-15] MEDS: PROTONIX PO SCH (05:32)
[2017-10-15 06:05] VITALS: BP 106/68; TEMP 97.9
[2017-10-15] MEDS: ROCEPHIN 1 GM in SODIUM CHLORIDE 50 ML IV SCH (08:59)
[2017-10-15] MEDS: FLOMAX PO SCH (08:59)
[2017-10-15] MEDS: PREDNISONE PO SCH (08:59)
[2017-10-15] MEDS: ASPIRIN EC PO SCH (08:59)
[2017-10-15] MEDS: SINEMET 25-100 PO SCH (09:00)
[2017-10-15] MEDS: PROSCAR PO SCH (09:00)
[2017-10-15] MEDS: PRAVACHOL PO SCH (09:00)
[2017-10-15] MEDS: ZESTRIL PO SCH (09:00)
[2017-10-15] MEDS: LOPRESSOR PO SCH (09:00)
[2017-10-15] MEDS: LEXAPRO PO SCH (09:00)
[2017-10-15] MEDS: VITAMIN D PO SCH (09:00)
[2017-10-15] MEDS: ALDACTONE PO SCH (09:01)
[2017-10-15] MEDS: PROAIR HFA IH SCH (09:02)
--- NOTE | 2017-10-15 17:27 | PCM.HOSP ---
- Initial Hospital Care [id number] 70 Minutes Bedside ([id number]): 10/11 - Subsequent Care [id number] 35 Minutes per Day ([id number]): 10/12. 10/13. 10/14 - Hospital Discharge [id number] More than 30 Minutes ([id number]): 10/15
--- NOTE | 2017-10-18 13:43 | DS ---
DATE OF SERVICE: 10/15/17 FINAL DIAGNOSIS: 1. COPD exacerbation secondary to the bibasilar pneumonia 2. Right basilar consolidation with pneumonia 3. Restless leg syndrome 4. Hypoxemia 5. Atrial fibrillation not on Coumadin as per the patient's wishes 6. Sleep apnea on CPAP 7. Lung nodule 3mm 8. Hypertension 9. 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 Please keep scheduled appointment with Beverley RAMSEY. Continue home oxygen 2 liters nasal cannula. Continue the rest of the home medications. MEDICATIONS AT DISCHARGE: Proventil Levodopa Carbidopa Citalopram Propafenone Aspirin Vitamin D3 Finasteride Lisinopril Metoprolol Prilosec Pravastatin Spironolactone Tamsulosin Prednisone NEW PRESCRIPTIONS: Requip 300mg PO at bedtime Prednisone 10mg twice a day Keflex 500mg twice a day DIET INSTRUCTIONS: Cardiac and healthy diet ACTIVITY: As much as tolerated DISEASE SPECIFIC EDUCATION: COPD Pneumonia and need for pneumonia vaccination been discussed Antibiotic and diarrhea Chronic kidney disease and not using NSAIDs been discussed and verbalized understanding. HOSPITAL COURSE: Natan Ackerman 82 year old male came to the office with worsening and cough and congestion and lower extremity edema. He was admitted to the hospital and found to have left lower lobe pneumonia. BNP was 114 and started on the Rocephin and Solu-Medrol. BUN was 32 and creatinine 1.15. Potassium 5.3 went up to 5.6 which was corrected with the Kayexalate. BUN and creatinine got better up to 35 and 1.0 then went up to 52 and 1.25 and 46 and 1.22. Meanwhile hgb and hct been stable. Stool for occult blood test was negative. Restless leg syndrome was bothering the patient increase the Requip medication to 3mg which did help the patient. Gradually the shortness of breath and wheezing, coughing and congestion was getting better. As patient being up and about walking being discharged today. TIME SPENT: MORE THAN 65 MINUTES MTDD
--- NOTE | 2017-10-18 14:11 | PN ---
DATE OF SERVICE: 10/14/17 SUBJECTIVE: The patient was admitted with bibasilar pneumonia. The patient has been dropping hemoglobin 9.9 and today 8.8. Cough and congestion is better. Pain in the lower extremity is better. REVIEW OF SYSTEMS: CONSTITUTIONAL: No fever, no chills. HEENT: Normal. ENDOCRINE: No weight gain, no weight loss. CVS: No angina symptoms. No CHF symptoms. No palpitations. No atypical chest pain for CAD. No shortness of breath. No PND, no orthopnea. RESPIRATORY: Cough and congestion is better. No hemoptysis. GI: No nausea, no vomiting. No abdominal pain. : No hematuria. No polyuria. MUSCULOSKELETAL: No joint swelling. PSYCHIATRIC: Not anxious. No depression. No suicidal thoughts. No homicidal thoughts. SKIN: Intact. No rash. PHYSICAL EXAMINATION: V/S: BP 96/59, respiratory rate 20, heart rate 72, temperature 97.6, saturation 97 on BIPAP. HEENT: Normocephalic, atraumatic. Mucosa dry. Pallor positive. No icterus. NECK: Supple. No JVD, no carotid bruit. No lymphadenopathy. LUNGS: Clear to auscultation. No rales or rhonchi. HEART: S1, S2 normal. No S3. No murmur, gallop or regurgitation. ABDOMEN: Soft, nontender. Bowel sounds active. No rigidity. No rebound or guarding. No CVA tenderness. EXTREMITIES: No cyanosis, clubbing or pedal edema. MUSCULOSKELETAL: No joint swelling. NEUROLOGIC: Awake, alert. No focal deficit. LYMPHATIC: No lymph nodes palpable. SKIN: Intact. LABS: White count 15.67, hemoglobin 8.8, hematocrit 29.4, platelet count 201. Sodium 133, potassium 3.9, chloride 98, bicarb 26, BUN 52, creatinine 1.53, glucose 183. ASSESSMENT: 1. ACUTE ON CHRONIC RENAL FAILURE 2. BIBASILAR PNEUMONIA 3. COPD EXACERBATION SECONDARY TO BIBASILAR PNEUMONIA 4. STATUS POST HYPOKALEMIA 5. CHRONIC KIDNEY DISEASE 6. ATRIAL FIBRILLATION NOT ON BLOOD THINNERS AT THE PATIENT'S REQUEST 7. SLEEP APNEA ON CPAP 8. ANEMIA 9. CHRONIC KIDNEY DISEASE 10. RESTLESS LEG SYNDROME 11. OSTEOARTHRITIS 12. CAD 13. CHF PLAN: 1. Will get a chest x-ray today. 2. Stop IV fluids. 3. Keep the legs elevated. 4. Rocephin 1 gm daily. 5. Prednisone 10 mg twice a day. TIME SPENT: More than 35 minutes MTDD
== END 2017-10-15 10:25 | disposition home or self-care (01) | DRG 194 ==
LOC: MEDSURG A 16:29
PROVIDERS: ADMIT Emergency Medicine; ATTEND Emergency Medicine
DX: J18.9 Pneumonia, unspecified organism (principal); I50.22 Chronic systolic (congestive) heart failure; N17.9 Acute kidney failure, unspecified; R06.02 Shortness of breath; R91.1 Solitary pulmonary nodule; R60.0 Localized edema; I48.91 Unspecified atrial fibrillation; I10 Essential (primary) hypertension; I25.10 Atherosclerotic heart disease of native coronary artery without angina pectoris; I50.9 Heart failure, unspecified; M47.9 Spondylosis, unspecified; M19.90 Unspecified osteoarthritis, unspecified site; N18.9 Chronic kidney disease, unspecified; G25.81 Restless legs syndrome; R09.02 Hypoxemia; G47.30 Sleep apnea, unspecified; D64.9 Anemia, unspecified; K21.9 Gastro-esophageal reflux disease without esophagitis; G20 Parkinson's disease; F32.9 Major depressive disorder, single episode, unspecified; E78.5 Hyperlipidemia, unspecified; E87.5 Hyperkalemia; Z95.0 Presence of cardiac pacemaker; Z09 Encounter for follow-up examination after completed treatment for conditions other than malignant neoplasm; Z99.81 Dependence on supplemental oxygen; Z72.0 Tobacco use
CPT/HCPCS: 36415; 80053; 82272; 82550; 82803; 82962; 83880; 84132; 84484; 85008; 85025; 93005; 93010; 94640; 99223; 99233; 99239

== ENCOUNTER 2017-10-29 15:08 | Inpatient (IN) ==
[2017-10-29 15:30] VITALS: BMI 21.2
[2017-10-29] MEDS ORDERED: TYLENOL PO PRN (15:39)
--- NOTE | 2017-10-29 16:45 | CT ---
EXAM: CT chest without contrast HISTORY: Shortness of breath COMPARISON: 10/11/2017 TECHNIQUE: The CT chest performed without intravenous contrast. Coronal and sagittal reformatted im ages obtained FINDINGS: There are sub centimeter thyroid nodules. Heart normal in size. Cardiac pacer. No peric ardial effusion. Aorta normal in caliber. Moderate atherosclerosis. Esophagus unremarkable. Evalu ation for lymphadenopathy limited without contrast. No lymphadenopathy identified. Granulomatous ca lcification. Mild bilateral gynecomastia. Mild nonspecific gaseous distension of the visualized colo n. Patient status post cholecystectomy. No acute abnormalities of the bones. Degenerative change i n the spine. Moderate centrilobular emphysema. No pneumothorax or pleural effusion. There is bibas ilar bibasilar consolidation. Left basilar atelectasis and/or consolidation. Findings similar to . Debris in right lower lobe bronchus. Lower airway thickening. Stable 3 mm pulmonary nod ule left upper lobe image 15. Granulomatous calcification. IMPRESSION: 1. Right lower lobe pneumonia. Left lower lobe atelectasis and/or pneumonia. Findings unchanged. 2. Debris in the right lower lobe bronchi. 3. Lower airway thickening suggesting small airways infection/inflammation. 4. Moderate emphysema. 5. Stable 3 mm pulmonary nodule left upper lobe. Recommend CT chest in six - [address] ability. 6. Mild nonspecific gaseous distension of the visualized colon.
[2017-10-29] MEDS: ROCEPHIN 1 GM in SODIUM CHLORIDE 50 ML IV SCH (16:54)
[2017-10-29] MEDS: SODIUM CHLORIDE 1,000 ML IV SCH (16:54)
[2017-10-29] MEDS ORDERED: ATIVAN 1 ML ONE (16:59)
[2017-10-29] MEDS ORDERED: ATIVAN IVP STA (17:02)
[2017-10-29] MEDS ORDERED: LOPRESSOR PO SCH (18:00)
[2017-10-29] MEDS ORDERED: ZESTRIL PO SCH (18:00)
[2017-10-29] MEDS ORDERED: ALBUTEROL 0.083% NEB NEB PRN (19:50)
[2017-10-29] MEDS: NORCO 5-325 PO PRN (19:53)
[2017-10-29] MEDS ORDERED: NON-FORMULARY MEDICATION (Ropinirole Hcl [Requip] 3 MG) PO SCH (21:00)
[2017-10-29] MEDS ORDERED: LEVODOPA PO SCH (21:00)
[2017-10-29] MEDS ORDERED: CARBIDOPA PO SCH (21:00)
[2017-10-29] MEDS: DUONEB NEB SCH (21:10)
[2017-10-29] MEDS ORDERED: REQUIP ONE (23:47)
[2017-10-29] MEDS ORDERED: SINEMET 25-100 ONE (23:47)
[2017-10-30] MEDS: PROPAFENONE HCL 225 MG PO SCH ×2 (00:01→06:26)
[2017-10-30] MEDS: DUONEB NEB SCH ×4 (05:12→21:27)
[2017-10-30] MEDS: NORCO 5-325 PO PRN (08:11)
[2017-10-30] MEDS: ROCEPHIN 1 GM in SODIUM CHLORIDE 50 ML IV SCH (08:11)
[2017-10-30] MEDS: PROSCAR PO SCH (08:12)
[2017-10-30] MEDS: PRILOSEC PO SCH (08:12)
[2017-10-30] MEDS: FLOMAX PO SCH (08:12)
[2017-10-30] MEDS: LOPRESSOR PO SCH ×2 (08:12→21:04)
[2017-10-30] MEDS: PRAVACHOL PO SCH (08:12)
[2017-10-30] MEDS: VITAMIN D PO SCH (08:12)
[2017-10-30] MEDS: PREDNISONE PO SCH ×2 (08:13→16:51)
[2017-10-30] MEDS: SINEMET 25-100 PO SCH ×3 (08:13→21:04)
[2017-10-30] MEDS: ASPIRIN EC PO SCH (08:13)
[2017-10-30] MEDS: LEXAPRO PO SCH (08:13)
[2017-10-30] MEDS: ZESTRIL PO SCH (08:13)
[2017-10-30] MEDS: ALDACTONE PO SCH (08:14)
[2017-10-30] MEDS ORDERED: NON-FORMULARY MEDICATION (Omeprazole [Prilosec] 20 MG) PO SCH (09:00)
[2017-10-30] MEDS ORDERED: PRAVASTATIN SODIUM 20 MG PO SCH (09:00)
[2017-10-30] MEDS: PROAIR HFA IH SCH ×5 (13:12→21:03)
[2017-10-30] MEDS: RYTHMOL PO SCH ×2 (14:05→21:04)
[2017-10-30] MEDS: SODIUM CHLORIDE 1,000 ML IV SCH (16:51)
[2017-10-30] MEDS ORDERED: TORADOL IVP STA (17:26)
--- NOTE | 2017-10-30 17:57 | DI ---
Exam: Three views cervical spine. Comparison: None available. Reason for exam: Neck pain. FINDINGS: No obvious fracture in the cervical spine. There is multilevel degenerative disease with intervertebral body disc space height narrowing. The prevertebral soft tissues are within normal [place] its. The dens appears grossly intact on the open-mouth odontoid view. Impression: No obvious fracture in the cervical spine with moderate degenerative disease.
[2017-10-30] MEDS: SOLU-MEDROL 40 MG IVP SCH ×2 (18:10→21:55)
[2017-10-30] MEDS ORDERED: ATIVAN IVP STA (21:02)
[2017-10-30] MEDS: REQUIP PO SCH (21:04)
[2017-10-30] MEDS: NICODERM 14 MG TD SCH (21:57)
[2017-10-31] MEDS: DUONEB NEB SCH ×4 (04:45→22:25)
[2017-10-31] MEDS: RYTHMOL PO SCH ×3 (05:40→20:30)
[2017-10-31] MEDS: PRILOSEC PO SCH (05:40)
[2017-10-31] MEDS: SOLU-MEDROL 40 MG IVP SCH ×3 (05:48→20:59)
[2017-10-31] MEDS: NORCO 5-325 PO PRN (05:48)
[2017-10-31] MEDS: ALDACTONE PO SCH (09:46)
[2017-10-31] MEDS: PROAIR HFA IH SCH ×4 (09:46→20:33)
[2017-10-31] MEDS: ROCEPHIN 1 GM in SODIUM CHLORIDE 50 ML IV SCH (09:46)
[2017-10-31] MEDS: FLOMAX PO SCH (09:46)
[2017-10-31] MEDS: ZESTRIL PO SCH (09:47)
[2017-10-31] MEDS: PROSCAR PO SCH (09:47)
[2017-10-31] MEDS: ASPIRIN EC PO SCH (09:47)
[2017-10-31] MEDS: LEXAPRO PO SCH (09:47)
[2017-10-31] MEDS: VITAMIN D PO SCH (09:47)
[2017-10-31] MEDS: SINEMET 25-100 PO SCH ×3 (09:47→20:30)
[2017-10-31] MEDS: LOPRESSOR PO SCH ×2 (09:47→20:30)
[2017-10-31] MEDS: PRAVACHOL PO SCH (09:47)
[2017-10-31] MEDS: PREDNISONE PO SCH (16:00)
[2017-10-31] MEDS: SODIUM CHLORIDE 1,000 ML IV SCH (17:18)
[2017-10-31] MEDS: CITRATE OF MAGNESIA PO STA ×2 (17:18→18:55)
[2017-10-31] MEDS: REQUIP PO SCH (20:30)
[2017-10-31] MEDS: NICODERM 14 MG TD SCH (20:33)
[2017-11-01] MEDS: NORCO 5-325 PO PRN ×2 (00:52→21:10)
[2017-11-01] MEDS: DUONEB NEB SCH ×4 (04:58→20:05)
[2017-11-01] MEDS: SOLU-MEDROL 40 MG IVP SCH ×3 (05:18→20:31)
[2017-11-01] MEDS: RYTHMOL PO SCH ×3 (05:37→20:19)
[2017-11-01] MEDS: PRILOSEC PO SCH (05:38)
[2017-11-01] MEDS: ZESTRIL PO SCH (09:04)
[2017-11-01] MEDS: LEXAPRO PO SCH (09:04)
[2017-11-01] MEDS: PRAVACHOL PO SCH (09:04)
[2017-11-01] MEDS: ASPIRIN EC PO SCH (09:04)
[2017-11-01] MEDS: ALDACTONE PO SCH (09:04)
[2017-11-01] MEDS: ROCEPHIN 1 GM in SODIUM CHLORIDE 50 ML IV SCH (09:04)
[2017-11-01] MEDS: FLOMAX PO SCH (09:04)
[2017-11-01] MEDS: PROAIR HFA IH SCH ×4 (09:04→20:19)
[2017-11-01] MEDS: VITAMIN D PO SCH (09:05)
[2017-11-01] MEDS: SINEMET 25-100 PO SCH ×3 (09:05→20:19)
[2017-11-01] MEDS: LOPRESSOR PO SCH ×2 (09:05→20:19)
[2017-11-01] MEDS: PROSCAR PO SCH (09:05)
--- NOTE | 2017-11-01 15:59 | DI ---
EXAM: PA and lateral views of the chest HISTORY: Wheezing COMPARISON: CT chest 10/29/2017 and multiple priors FINDINGS: The cardiomediastinal silhouette is unchanged with stable lead wires and left chest wall g enerator pack. There is no pneumothorax or effusion. The lungs are hyperinflated. There is questio nable fibrosis versus bibasilar atelectasis. There is degenerative disease of the thoracic spine. IMPRESSION: 1. Lungs are hyperinflated suggestive of component of obstructive pulmonary physiology. 2. Mild basilar atelectasis versus fibrosis.
[2017-11-01] MEDS: SODIUM CHLORIDE 1,000 ML IV SCH (19:20)
[2017-11-01] MEDS: REQUIP PO SCH (20:19)
[2017-11-01] MEDS: NICODERM 14 MG TD SCH (20:23)
[2017-11-02] MEDS: DUONEB NEB SCH ×2 (05:00→10:00)
[2017-11-02] MEDS: SOLU-MEDROL 40 MG IVP SCH (05:23)
[2017-11-02] MEDS: RYTHMOL PO SCH (05:24)
[2017-11-02] MEDS: PRILOSEC PO SCH (05:44)
[2017-11-02] MEDS: PRAVACHOL PO SCH (08:26)
[2017-11-02] MEDS: PROSCAR PO SCH (08:26)
[2017-11-02] MEDS: ASPIRIN EC PO SCH (08:26)
[2017-11-02] MEDS: ROCEPHIN 1 GM in SODIUM CHLORIDE 50 ML IV SCH (08:26)
[2017-11-02] MEDS: ZESTRIL PO SCH (08:26)
[2017-11-02] MEDS: ALDACTONE PO SCH (08:26)
[2017-11-02] MEDS: FLOMAX PO SCH (08:26)
[2017-11-02] MEDS: SINEMET 25-100 PO SCH (08:27)
[2017-11-02] MEDS: LEXAPRO PO SCH (08:27)
[2017-11-02] MEDS: LOPRESSOR PO SCH (08:27)
[2017-11-02] MEDS: VITAMIN D PO SCH (08:27)
[2017-11-02] MEDS: PROAIR HFA IH SCH (08:27)
[2017-11-02 09:58] VITALS: BP 124/68; TEMP 97.6
--- NOTE | 2017-11-02 14:11 | PN ---
DATE OF SERVICE: 10/30/17 SUBJECTIVE: The patient is admitted with COPD exacerbation and pneumonia, feeling some better, complains of left-sided neck pain. No fever or chills. REVIEW OF SYSTEMS: CONSTITUTIONAL: No fever, no chills. HEENT: Normal. ENDOCRINE: No weight gain, no weight loss. CVS: No angina symptoms. No CHF symptoms. No palpitations. No atypical chest pain for CAD. No shortness of breath. No PND, no orthopnea. RESPIRATORY: No cough, no hemoptysis. GI: No nausea, no vomiting. No abdominal pain. : No hematuria. No polyuria. MUSCULOSKELETAL: Left-sided neck pain. PSYCHIATRIC: Not anxious. No depression. No suicidal thoughts. No homicidal thoughts. SKIN: Intact. No rash. PHYSICAL EXAMINATION: V/S: BP 115/61, respiratory rate 22, heart rate 85, temperature 98.2, saturation 100% on BIPAP. GENERAL: Cachetic male lying in bed, not in any distress. HEENT: Normocephalic, atraumatic. NECK: Supple. Paraspinal tenderness on left side of neck. No JVD, no carotid bruit. No lymphadenopathy. LUNGS: Decrease in basilar crackles. Mild expiratory wheeze. No rales or rhonchi. HEART: S1, S2 normal. No S3. No murmur, gallop or regurgitation. ABDOMEN: Soft, nontender. Bowel sounds active. No rigidity. No rebound or guarding. No CVA tenderness. EXTREMITIES: No cyanosis, clubbing or pedal edema. MUSCULOSKELETAL: No joint swelling. NEUROLOGIC: Awake, alert. No focal deficit. LYMPHATIC: No lymph nodes palpable. SKIN: Intact. LABS: White count 6.43, hemoglobin 9.5, hematocrit 31.3, platelet count 183. Sodium 137, potassium 5.0, chloride 100, bicarb 29, BUN 26, creatinine 0.95, glucose 125. ASSESSMENT: 1. COPD EXACERBATION SECONDARY TO PNEUMONIA, COMMUNITY ACQUIRED 2. LEFT-SIDED NECK PAIN, WILL GET X-RAY 3. ATRIAL FIBRILLATION, NOT ON COUMADIN (PATIENT REFUSES TO TAKE IT) 4. CAD 5. HYPERTENSION 6. DYSLIPIDEMIA 7. OSTEOARTHRITIS 8. DJD SPINE PLAN: 1. X-ray of the neck. 2. Continue Albuterol, Rocephin. 3. Solu-Medrol 40 q.8. 4. Daily I & O's. TIME SPENT: More than 35 minutes MTDD
--- NOTE | 2017-11-02 14:21 | PN ---
DATE OF SERVICE: 10/31/17 SUBJECTIVE: The patient is admitted with COPD exacerbation and lower lobe pneumonia. The patient was complaining of neck pain. X-ray was done which was negative. The patient says he is feeling some better, still having some cough and congestion. No fever, no chills. No PND, no orthopnea. REVIEW OF SYSTEMS: CONSTITUTIONAL: No fever, no chills. HEENT: Normal. ENDOCRINE: No weight gain, no weight loss. CVS: No angina symptoms. No CHF symptoms. No palpitations. No atypical chest pain for CAD. No shortness of breath. No PND, no orthopnea. RESPIRATORY: Cough and congestion. No hemoptysis. GI: No nausea, no vomiting. No abdominal pain. : No hematuria. No polyuria. MUSCULOSKELETAL: No joint swelling. PSYCHIATRIC: Not anxious. No depression. No suicidal thoughts. No homicidal thoughts. SKIN: Intact. No rash. PHYSICAL EXAMINATION: V/S: BP 147/77, respiratory rate 18, heart rate 93, temperature 98, saturation 95 on 2L. GENERAL: Cachetic male lying in bed not in any distress. HEENT: Normocephalic, atraumatic. Mucosa dry. Pallor positive. No icterus. NECK: Supple. No JVD, no carotid bruit. No lymphadenopathy. LUNGS: Decreased breath sounds with basilar crackles. Mild wheezing. HEART: S1, S2 normal. No S3. No murmur, gallop or regurgitation. ABDOMEN: Soft, nontender. Bowel sounds active. No rigidity. No rebound or guarding. No CVA tenderness. EXTREMITIES: No cyanosis, clubbing or pedal edema. MUSCULOSKELETAL: No joint swelling. NEUROLOGIC: Awake, alert. No focal deficit. LYMPHATIC: No lymph nodes palpable. SKIN: Intact. LABS: White count 8.57, hemoglobin 8.8, hematocrit 29.95, platelet count 210. Sodium 134, potassium 5.2, chloride 99, bicarb 27, BUN 36, creatinine 1.10, glucose 153. ASSESSMENT: 1. COPD EXACERBATION 2. RIGHT LOWER LOBE PNEUMONIA 3. ANEMIA, WILL CHECK STOOL FOR OCCULT BLOOD TEST 4. HYPERKALEMIA 5. DEHYDRATION 6. ATRIAL FIBRILLATION (DOESN'T WANT TO TAKE COUMADIN OR ANY NOVEL ANTICOAGULANT) 7. COPD, OXYGEN DEPENDENT 8. RESTLESS LEG SYNDROME 9. SLEEP APNEA 10. OSTEOARTHRITIS 11. DJD SPINE PLAN: 1. Continue Rocephin 1 gm daily 2. Breathing treatments 3. IV fluids 4. Daily I & O's 5. Out of bed to chair 6. Activity as tolerated TIME SPENT: More than 35 minutes MTDD
--- NOTE | 2017-11-02 14:42 | DS ---
DATE OF SERVICE: 11/02/17 FINAL DIAGNOSIS: 1. COPD EXACERBATION SECONDARY TO RIGHT LOWER LOBE PNEUMONIA 2. COPD, OXYGEN DEPENDENT 3. HYPERTENSION 4. CAD 5. DYSLIPIDEMIA 6. ANEMIA 7. HISTORY OF ATRIAL FIBRILLATION, NO ANTICOAGULATION PER PATIENT 8. LUNG NODULE 3 MM 9. OBSTRUCTIVE SLEEP APNEA ON CPAP 10. CHRONIC TOBACCO USE 11. RESTLESS LEG SYNDROME 12. PERMANENT PACEMAKER 13. CORONARY ARTERY DISEASE DISCHARGE INSTRUCTIONS: 1. Followup appointment with Dr. Ramirez on 11/09/17 at 2 p.m. [facility]. 2. Continue to use oxygen at 2L continuously. 3. Continue to use nebulizer treatments as directed, at least 4 times daily. 4. Continue to use BIPAP at night and during the day when napping. MEDICATIONS AT DISCHARGE: Atrovent Carbidopa Escitalopram Propafenone Aspirin Vitamin D3 Finasteride Lisinopril Metoprolol Prilosec Pravastatin Aldactone Flomax Hydrocodone Penicillin Ropinirole NEW PRESCRIPTIONS: 1. Keflex 500 mg one twice a day for 5 days (antibiotic), next dose tonight 2. Prednisone 10 mg, take one twice a day for 5 days (steroid) next dose at supper take with food. 3. Ativan 0.5 mg. Take one at bedtime for sleep (will cause sleepiness, drowsiness) DIET INSTRUCTIONS: Cardiac and Healthy. ACTIVITY: Gradually resume as tolerated. SMOKING: Advised to stop smoking DISEASE SPECIFIC EDUCATION: Pneumonia needing pneumonia vaccination, antibiotic use and diarrhea discussed, verbalized understanding. HOSPITAL COURSE: This is a 82-year-old male came to the office complaining of worsening shortness of breath, cough and congestion. In view of his COPD and risk of pneumonia, the patient was admitted to the hospital for IV antibiotics and breathing treatment, started on Rocephin 1 gm daily and Duonebs. With breathing treatment and steroids, gradually started feeling better. Hemoglobin was 9.7, 8.8, steady. ABGs showed pH 7.408, pc02 2.7, p02 80, BUN and creatinine were steady, did not have any change. Occult blood test negative. As the patient is doing better, chest x-ray was done today which was showing improvement in chest x-ray. The patient was discharged home on antibiotics, steroids and breathing treatments. Advised to quit smoking, verbalized understanding. TIME SPENT: MORE THAN 65 MINUTES MTDD
--- NOTE | 2017-11-02 22:41 | PCM.HOSP ---
- Initial Hospital Care [id number] 70 Minutes Bedside ([id number]): 10/29/17 - Subsequent Care [id number] 35 Minutes per Day ([id number]): 10/30. 10/31. 11/01 - Hospital Discharge [id number] More than 30 Minutes ([id number]): 11/02
--- NOTE | 2017-11-03 11:32 | PN ---
DATE OF SERVICE: 11/01/17 SUBJECTIVE: The patient admitted with right lower lobe pneumonia. Still having cough, congestion, shortness of breath and says that he is not feeling good today. REVIEW OF SYSTEMS: CONSTITUTIONAL: No fever, no chills. HEENT: Normal. ENDOCRINE: No weight gain, no weight loss. CVS: No angina symptoms. No CHF symptoms. No palpitations. No atypical chest pain for CAD. No shortness of breath. No PND, no orthopnea. RESPIRATORY: No cough, no hemoptysis. GI: No nausea, no vomiting. No abdominal pain. : No hematuria. No polyuria. MUSCULOSKELETAL: No joint swelling. PSYCHIATRIC: Not anxious. No depression. No suicidal thoughts. No homicidal thoughts. SKIN: Intact. No rash. PHYSICAL EXAMINATION: V/S: blood pressure 120/71, respiratory rate 18, heart rate 69, temperature 97.5 with saturation 96% on BIPAP HEENT: Normocephalic, atraumatic. Mucosa dry. Pallor positive. No icterus. NECK: Supple. No JVD, no carotid bruit. No lymphadenopathy. LUNGS: Decreased and basilar crackles. No rales or rhonchi. HEART: S1, S2 normal. No S3. No murmur, gallop or regurgitation. ABDOMEN: Soft, nontender. Bowel sounds active. No rigidity. No rebound or guarding. No CVA tenderness. EXTREMITIES: No cyanosis, clubbing or pedal edema. MUSCULOSKELETAL: No joint swelling. NEUROLOGIC: Awake, alert. No focal deficit. LYMPHATIC: No lymph nodes palpable. SKIN: Intact. LABS: WBC 4.84, hgb 8.8, hct 29.2, plt count 220, sodium 134, potassium 4.9, chloride 101, bicarb 26, BUN 33, creatinine 0.98 and glucose 164. ASSESSMENT: 1. Right lower lobe pneumonia 2. COPD exacerbation secondary to the pneumonia 3. Atrial fibrillation not on any anticoagulation, CHADS 2 VASC SCORE 5 risk of stroke is very high and refused to take the medication. 4. Sleep apnea on CPAP 5. Restless leg syndrome 6. Osteoarthritis 7. DJD spine 8. Permanent pacemaker PLAN: 1. Continue Rocephin 2. DUO NEBS 3. IV fluids 4. Solu-Medrol 5. Daily I&O's TIME SPENT: More than 35 minutes MTDD
== END 2017-11-02 10:52 | disposition home or self-care (01) | DRG 194 ==
LOC: MEDSURG A 15:08
PROVIDERS: ADMIT Emergency Medicine; ATTEND Emergency Medicine
DX: J18.0 Bronchopneumonia, unspecified organism (principal); I50.22 Chronic systolic (congestive) heart failure; I25.10 Atherosclerotic heart disease of native coronary artery without angina pectoris; I10 Essential (primary) hypertension; I48.91 Unspecified atrial fibrillation; R91.8 Other nonspecific abnormal finding of lung field; E78.5 Hyperlipidemia, unspecified; E87.5 Hyperkalemia; E86.0 Dehydration; D64.9 Anemia, unspecified; G47.33 Obstructive sleep apnea (adult) (pediatric); G25.81 Restless legs syndrome; G20 Parkinson's disease; K21.9 Gastro-esophageal reflux disease without esophagitis; M47.9 Spondylosis, unspecified; F41.8 Other specified anxiety disorders; Z09 Encounter for follow-up examination after completed treatment for conditions other than malignant neoplasm; Z99.81 Dependence on supplemental oxygen; Z72.0 Tobacco use; Z95.0 Presence of cardiac pacemaker
CPT/HCPCS: 36415; 80053; 82272; 82550; 82553; 82803; 83880; 84484; 85025; 87081; 93005; 93010; 94640